=== PATIENT | male | born 1955 | race Caucasian/White ===

== ENCOUNTER 2023-11-02 05:32 | Emergency (ER) | payer OTHER, SELFPAY ==
[2023-11-02] VITALS (9 sets, daily range): BP systolic 125–162; BP diastolic 59–80; BMI 32.1
[2023-11-02] MEDS: DILAUDID 0.5 MG IV (06:30)
[2023-11-02 06:32] LABS: % Basophils 0.7 % (0-2); % Eosinophils 2.3 % (0-6); % Immature Granulocytes 0.4 % (0-0.5); % Lymphocytes 27.3 % (20.5-51.1); % Monocytes 8.6 % (1.7-9.3); % Neutrophils 60.7 % (42.2-75.2); Absolute Basophils 0.1 10^3/uL (0-0.2); Absolute Eosinophils 0.2 10^3/uL (0-0.7); Absolute Monocytes 0.6 10^3/uL (0.1-0.6); Absolute Neutrophils 4.5 10^3/uL (1.4-6.5); Hemoglobin 13.4 g/dL (13.0-18.0); Mean Corp Hgb Conc. 34.4 g/dL (33.0-37.0); Mean Corpuscular Hgb 29.6 pg (27.0-31.0); Mean Corpuscular Volume 86.1 fL (80.0-94.0); Mean Platelet Volume 10.7 fL (7.4-10.4); Nucleated Red Blood Cells % 0 % (-); Platelet Count 205 10^3/uL (130-400); Red Blood Cell Count 4.53 10^6/uL (4.70-6.10); Red Cell Dist. Width 14.3 % (11.5-14.5); White Blood Cell Count 7.5 10^3/uL (4.8-10.8)
[2023-11-02 06:43] LABS: ALT (SGPT) 22 U/L (0-50); AST (SGOT) 28 U/L (17-59); Albumin 3.9 g/dl (3.5-5.0); Alkaline Phosphatase 80 U/L (38-126); Blood Urea Nitrogen 20 mg/dl (9-20); Calcium 9.7 mg/dl (8.4-10.2); Carbon Dioxide 25 mmol/L (22-30); Chloride 104 mmol/L (98-107); Estimated Creatinine Clearance 107 ml/min; Glucose 107 mg/dl (70-99); Sodium 141 mmol/L (135-145); Total Bilirubin 0.7 mg/dl (0.2-1.3); Total Protein 6.6 g/dl (6.3-8.2); eGFR > 60.00
[2023-11-02 06:44] LABS: Urine Albumin Negative (Neg - Trace); Urine Bilirubin Negative (Negative); Urine Character Clear (Clear); Urine Color Yellow; Urine Glucose Negative (Negative); Urine Ketone Negative (Negative); Urine Leukocyte Negative (Negative); Urine Nitrite Negative (Negative); Urine Occult Blood Negative (Negative); Urine Urobilinogen Negative (Neg - 1+)
--- NOTE | 2023-11-02 07:17 | ED.GENMED ---
History of Present Illness
General
Chief Complaint: Abdominal Pain
Source: patient and spouse
Time Seen by Provider: 11/02/23 06:33
Travel History
Have you had any contact with someone who has COVID-19?: No
Do you have any symptoms of coronavirus? Fever > 100 degrees, chills, cough, shortness of breath, sore throat, loss of taste or smell, muscle aches, or headache?: No
History of Present Illness
History of Present Illness:
68-year-old male who presents with pain in the right groin area. Patient states that radiates a little bit toward his hip and back but mostly in the right groin. No fevers. No vomiting. No dysuria. No injury. Symptoms worsen this morning. He
did have mesh hernia repair in that same area.
Past History
Past History
ED Past Medical History: CVA, GERD and Other (Cervical disc disease, blind right eye, Parkinson's disease)
ED Past Surgical History: Orthopedic; Negative Cardiac
Social History
Tobacco: Non-smoker
Alcohol: Occasional
Drug: None
Personal:
Living: with family
Employment: Employed
Family History
Family History: Other (n/c)
Phy Exam
Physical Exam
Physical Exam:
CONSTITUTIONAL Patient alert and oriented to person, place and time. Well-appearing. Vital signs reviewed.
HEAD atraumatic, normocephalic.
EYES eyelids normal to inspection, Pupils equally round and reactive to light, Extraocular muscles intact, Conjunctiva normal, Sclera normal.
NECK normal range of motion, Trachea midline, no jugular venous distention.
RESPIRATORY CHEST No respiratory distress noted, Chest expansion equal
ABDOMEN moderate tenderness noted in the right groin above the inguinal ligament. Testicles normal. No rash. No bowel herniation. No distention. No redness
BACK normal inspection, no obvious deformities
UPPER EXTREMITY range of motion normal, Motor strength normal, no cyanosis, no edema.
LOWER EXTREMITY range of motion normal, Motor strength normal, no cyanosis, no edema.
NEURO Speech normal, No focal motor deficits, Lili coma scale 15, Memory normal, Cranial Nerves intact to screening exam.
SKIN skin warm, dry, and normal in color.
PSYCHIATRIC patient oriented to person place and time, Normal affect.
Course
Orders/Labs/Results
Orders:
Orders
11/02/23 06:10
IV Insert/Care/Rem.- Treatment PRN
11/02/23 06:12
Complete Blood Count/With Diff Urgent
Comprehensive Metabolic Panel Urgent
Lipase Urgent
Urinalysis Reflex To Culture Urgent
Date Specimen was Collected: 11/02/23
Time Specimen was Collected: 06:10
11/02/23 06:23
HYDROmorphone [Dilaudid] 0.5 mg IV NOW STA
11/02/23 07:16
CT Abd/pel Without Iv Or Oral Urgent
Comment:
Reason For Exam: R flank pain
11/02/23 08:04
HYDROmorphone [Dilaudid] 1 mg IV NOW STA
11/02/23 10:17
Ketorolac [Toradol] 15 mg IV NOW STA
Abnormal Lab Results
11/02/23
06:12
RBC 4.53 L 10^6/uL
(4.70-6.10)
MPV 10.7 H fL
(7.4-10.4)
Glucose 107 H mg/dl
(70-99)
11/02/23 06:12
11/02/23 06:12
Vital Signs
Initial and Last Documented VS:
Initial Vital Signs
Temp Pulse Resp BP Pulse Ox
98 F 64 24 162/80 98
11/02/23 05:33 11/02/23 05:33 11/02/23 05:33 11/02/23 05:33 11/02/23 05:33
Last Documented Vital Signs
Temp Pulse Resp BP Pulse Ox
98 F 51 16 127/70 98
11/02/23 05:33 11/02/23 12:00 11/02/23 12:00 11/02/23 12:00 11/02/23 05:33
MDM/Problems Addressed
MDM/Problems Addressed:
Groin pain
*Radiology
Radiology exam reviewed: preliminary read by ED provider (No free air noted) and radiology read reviewed
*Pulse Oximetry
Patient hypoxic: no
*Critical Care Note
Total Time (30-74mins, 75-104mins- exclusive of procedures): Not Applicable
Data Reviewed
Review of Other/Old Records Reveals: Discharge Summary (Discharge summary from August 2023 reviewed)
Source: patient and spouse
Prescriptions/Medications Considered But Not Given:
Considered antibiotics but no gross signs of infection. No leukocytosis
Patient Management
Escalation/DeEscalation of care consider admission/obs:
Pain does persist. However, white count normal, urinalysis normal, CT normal. On reexamination there is no bowel herniation noted. He otherwise appears well. I do feel it is reasonable for discharge outpatient follow-up with surgery. Question
whether this could be inflammatory related to his mesh.
ED Attending Note
-
Portions of this chart may have been created with voice recognition software.� Occasional wrong word or��sound alike� substitutions may have occurred due to the inherent limitations of voice recognition software.
Discharge Plan
Departure
Patient Disposition: Home (Routine Discharge)
Date of Disposition: 11/02/23
Time of Disposition: 12:42
Patient with high blood pressure during this ER visit?: No
Discharge Problem:
Groin pain
Instructions: Abdominal Pain
Prescriptions:
New
oxycodone-acetaminophen [Percocet] 5-325 mg tablet
2 tab PO Q6HPRN PRN (Reason: pain) Qty: 12 0RF
No Action
carvedilol [Coreg] 12.5 MG tablet
12.5 mg PO BID
pravastatin 40 MG tablet
40 mg PO DAILY
Patient Comments:
Patient stopped taking medication
therapeutic multivitamin Tablet
1 tab PO DAILY
aspirin 81 mg Tablet,Delayed Release (Dr/Ec)
81 mg PO BID
hydralazine 100 mg Tablet
100 mg PO TID
escitalopram oxalate 10 mg tablet
10 mg PO DAILY
bupropion HCl 150 mg tablet extended release 24 hr
150 mg PO DAILY
donepezil 5 mg tablet
5 mg PO HS
clonazepam 1 mg Tablet
1 mg PO HS
hydrochlorothiazide 25 mg tablet
25 mg PO HS
lisinopril 40 mg tablet
40 mg PO DAILY
amlodipine 10 mg Tablet
10 mg PO DAILY Qty: 30 0RF
Referrals:
Shaheen Jorgensen DO [Family Provider] -
Activity Restrictions/Additional Instructions:
Please see DR Hill or your doctor in the next 3 days for follow-up and reevaluation. Return immediately for worsening pain, vomiting, fevers, difficulty urinating or any other concerns.
Interventions
Interventions:
*Risk Screen - Suicide Last Done: 11/02/23 05:33
*General Assessment Last Done: 11/02/23 06:13
*Neglect/Abuse Screening Last Done: 11/02/23 05:33
ED- Fall Risk Assessment Last Done: 11/02/23 06:13
*ED COVID-19 Vaccine History Last Done: 11/02/23 06:12
QA-Vomapt-Omslypaukh Assessment Last Done: 11/02/23 06:47
ED-Male Genitourinary Assessment Last Done: 11/02/23 06:47
[2023-11-02 07:57] LABS: Lipase 108 U/L (23-300)
[2023-11-02] MEDS: DILAUDID 1 MG IV (08:20)
[2023-11-02] MEDS: TORADOL 15 MG IV (10:38)
== END 2023-11-02 14:37 | disposition home or self-care (01) ==
LOC: EMR 05:32
PROVIDERS: Emergency Medicine; EMERGENCY PHYSICIAN Emergency Medicine; FAMILY PHYSICIAN Internal Medicine
DX: R10.31 Right lower quadrant pain (principal); R10.9 Unspecified abdominal pain
CPT/HCPCS: 99284; 96374; 96375; 96376; 74176; 80053; 81003; 83690; 85025

== ENCOUNTER 2023-11-20 06:07 | Day surgery (SDC) | payer OTHER, SELFPAY ==
[2023-11-09 14:07] VITALS: BMI 33.8
[2023-11-20] VITALS (10 sets, daily range): BP systolic 125–140; BP diastolic 61–74; BMI 33.8
[2023-11-20] MEDS: TYLENOL 1000 MG PO (06:43)
[2023-11-20] MEDS: NORMOSOL-R 1000 IV (06:52)
--- NOTE | 2023-11-20 09:23 | OR.RPT ---
Operative Report
Operative Report
Primary Surgeon: Remi
Assisting Surgeon: Daria SEYMOUR
Pre-op Diagnosis: Recurrent incarcerated left inguinal hernia, incarcerated right inguinal hernia
Post-op Diagnosis: Same
Procedure Performed: Robot assisted laparoscopic repair of recurrent incarcerated left inguinal hernia, incarcerated right inguinal hernia
Anesthesia Type: GETA
Specimen / Cultures: None
Estimated Blood Loss: 5cc
Complications: None immediate
Operative Findings: Bilateral indirect defects, scarring in the canal on the right, large cord lipoma on the left, bilateral XL MID 3D max
Date of surgery: 11/20/23
Indications:� This 68M developed recurrent right inguinal hernia. On exam and imaging a left inguinal hernia was also identified. He asked that we repair both sides today. Robot assisted laparoscopic repair was planned.
Description of procedure:� The patient was taken to the operating room and positioned into supine position. The patient�s abdomen was prepped and draped in standard sterile fashion. A time-out was completed verifying correct patient, procedure,
site, positioning, and implants and special equipment prior to beginning this procedure.� A stab incision was made in the left upper quadrant, a Veress needle was inserted and proper position was confirmed by aspiration and saline drop test.
Following this, pneumoperitoneum was created with insufflation of carbon dioxide to 12 mmHg. Then a 8mm robotic trocar was inserted above and to the left of the umbilicus. A laparoscope was inserted and the area of initial trocar entry and Veress
needle placement were both inspected and no injuries were found. Two 8mm trocars were then placed lateral to the rectus sheath under direct visualization.
Both inguinal regions were inspected and the median umbilical ligament, medial umbilical ligament, and lateral umbilical fold were identified. Attention was turned to the right groin. The peritoneum was incised transversely above the defect and a
flap was developed in the caudad direction. Scar�s ligament was identified ultimately dissected to its junction with the iliac vein and the space of Retzius was developed bluntly.� The dissection was continued inferiorly to the iliopubic tract,
with care taken to avoid injury to the femoral branch of the genitofemoral nerve and the lateral femoral cutaneous nerve. The cord structures were parietalized.
The direct space was inspected and a hernia was not identified. The femoral space was inspected and no hernia was identified.� The indirect space was inspected and a hernia was identified and reduced by gentle traction. The canal was densely scarred
and was unable to be safely thoroughly inspected without risking injury to cord structures.
Attention was turned to the left groin and the above process was repeated. An indirect defect was reduced along with a large cord lipoma.
Extra large left and right MID 3D max mesh was passed through a trocar. The mesh was placed into the preperitoneal space and moved into position to lay flat and completely cover the direct, indirect, and femoral spaces with overlap at the midline.
The mesh was secured into place using 2-0 vicryl suture to Scar�s ligament medially and laterally. Care was taken to avoid the inferolateral triangles containing the iliac vessels and genital nerves.
The peritoneal flap was closed over the mesh and secured with 2-0 monocryl stratafix suture in similar positions of safety. A large flap rent on the right was closed with 2-0 monocryl stratatfix. A 14g angiocath was used to decompress the
preperitoneal space revealing good seal and all mesh in good position without folding or curling. After ensuring adequate hemostasis, the trocars were removed and the pneumoperitoneum allowed to escape. The trocar incisions were closed at the skin
level using 4-0 monocryl and topical skin adhesive. All counts were correct and the patient tolerated the procedure well and was taken to the postanesthesia care unit in stable condition.
�
== END 2023-11-20 12:00 | disposition home or self-care (01) ==
LOC: SDS 06:07
PROVIDERS: ATTENDING PHYSICIAN Surgery; FAMILY PHYSICIAN Internal Medicine; OTHER PHYSICIAN Internal Medicine Cardiovascular Disease
DX: K40.31 Unilateral inguinal hernia, with obstruction, without gangrene, recurrent (principal); K40.30 Unilateral inguinal hernia, with obstruction, without gangrene, not specified as recurrent
CPT/HCPCS: 49651; 36415; 93005; C1781

== ENCOUNTER 2023-12-07 21:55 | Emergency (ER) | payer OTHER, SELFPAY ==
[2023-12-07 21:57] VITALS: BP 146/69
[2023-12-08] MEDS: NSS 500 IV (00:28)
[2023-12-08 00:36] VITALS: BMI 34.0
[2023-12-08 00:39] LABS: % Basophils 1.1 % (0-2); % Eosinophils 0.8 % (0-6); % Immature Granulocytes 1.1 % (0-0.5); % Lymphocytes 34.3 % (20.5-51.1); % Monocytes 16.2 % (1.7-9.3); % Neutrophils 46.5 % (42.2-75.2); Absolute Basophils 0.1 10^3/uL (0-0.2); Absolute Eosinophils 0.1 10^3/uL (0-0.7); Absolute Immature Granulocytes 0.1 10^3/uL (0-0.05); Absolute Lymphocytes 2.7 10^3/uL (1.2-3.4); Absolute Monocytes 1.3 10^3/uL (0.1-0.6); Absolute Neutrophils 3.7 10^3/uL (1.4-6.5); Hemoglobin 12.9 g/dL (13.0-18.0); Mean Corp Hgb Conc. 33.9 g/dL (33.0-37.0); Mean Corpuscular Hgb 29.5 pg (27.0-31.0); Mean Platelet Volume 10.3 fL (7.4-10.4); Nucleated Red Blood Cells % 0 % (-); Platelet Count 209 10^3/uL (130-400); Red Blood Cell Count 4.37 10^6/uL (4.70-6.10); Red Cell Dist. Width 14.5 % (11.5-14.5); White Blood Cell Count 7.9 10^3/uL (4.8-10.8)
[2023-12-08 00:59] LABS: ALT (SGPT) 17 U/L (0-50); AST (SGOT) 27 U/L (17-59); Albumin 4.1 g/dl (3.5-5.0); Alkaline Phosphatase 72 U/L (38-126); Blood Urea Nitrogen 28 mg/dl (9-20); Calcium 9.3 mg/dl (8.4-10.2); Carbon Dioxide 26 mmol/L (22-30); Chloride 103 mmol/L (98-107); Estimated Creatinine Clearance 75 ml/min; Glucose 108 mg/dl (70-99); Potassium 3.6 mmol/L (3.5-5.1); Sodium 137 mmol/L (135-145); Total Bilirubin 0.6 mg/dl (0.2-1.3); Total Protein 6.9 g/dl (6.3-8.2); eGFR > 60.00
--- NOTE | 2023-12-08 01:05 | ED.GENMED ---
History of Present Illness
General
Chief Complaint: Cold/Flu/URI Symptoms
Time Seen by Provider: 12/08/23 00:06
Travel History
Have you had any contact with someone who has COVID-19?: Yes
Comment: DAMIÁN
Do you have any symptoms of coronavirus? Fever > 100 degrees, chills, cough, shortness of breath, sore throat, loss of taste or smell, muscle aches, or headache?: Yes
Symptoms:: ABOVE
History of Present Illness
History of Present Illness:
Cough congestion started 2 days ago. COVID-positive today. Some shortness of breath with exertion. No pleuritic pain no hemoptysis no other complaints.
Past History
Past History
ED Past Medical History: CVA, GERD and Other (Cervical disc disease, blind right eye, Parkinson's disease)
ED Past Surgical History: Orthopedic; Negative Cardiac
Social History
Tobacco: Non-smoker
Alcohol: Occasional
Drug: None
Personal:
Living: with family
Employment: Employed
Family History
Family History: Other (n/c)
Phy Exam
Physical Exam
Physical Exam:
GENERAL: Alert and oriented in no apparent distress
EYE: Orbits normal.
NECK: Supple
CARDIAC: Regular rate and rhythm without any obvious murmurs.
LUNGS: No respiratory distress. Occasional rhonchi. Occasional coarse cough
ABDOMEN: Soft, without focal tenderness or distention
NEUROLOGICAL: Alert and oriented , grossly non-focal. Resting tremor right arm
SKIN: Warm and dry, no rash or lesion, no discoloration, skin intact.
MUSCULOSKELETAL: No edema,no deformity.Good color
PSYCH: Normal and appropriate interaction.
Course
Orders/Labs/Results
Orders:
Orders
12/08/23 00:14
CR Chest Portable - 1 View Urgent
Comment:
Reason For Exam: cough covid pos
Reason Study Needs to be Portable: Other
If Reason is Other, explain: isolation
12/08/23 00:15
EKG [Electrocardiogram (*1)] Urgent
Reason for Study: Palpitations
EKG- Treatment ONCE
12/08/23 00:28
Complete Blood Count/With Diff Urgent
Comprehensive Metabolic Panel Urgent
D-Dimer Urgent
12/08/23 01:00
0.9% Sodium Chloride 500 ml [Nss] 500 ml IV 250 mls/hr
12/08/23 01:22
Nirmatrelvir/Ritonavir [Paxlovid 2X150 mg-100 mg Dose Pack] 1 dose PO NOW STA
Abnormal Lab Results
12/08/23
00:28
RBC 4.37 L 10^6/uL
(4.70-6.10)
Hgb 12.9 L g/dL
(13.0-18.0)
Hct 38.0 L %
(39.0-52.0)
Abs Immat Gran (auto) 0.1 H 10^3/uL
(0-0.05)
Absolute Monos (auto) 1.3 H 10^3/uL
(0.1-0.6)
Immature Gran % 1.1 H %
(0-0.5)
Monocytes % 16.2 H %
(1.7-9.3)
D-Dimer 0.60 H ug/mlFEU
(0.00-0.50)
BUN 28 H mg/dl
(9-20)
Glucose 108 H mg/dl
(70-99)
12/08/23 00:28
12/08/23 00:28
Vital Signs
Initial and Last Documented VS:
Initial Vital Signs
Temp Pulse Resp BP Pulse Ox
98.3 F 72 24 146/69 97
12/07/23 21:57 12/07/23 21:57 12/07/23 21:57 12/07/23 21:57 12/07/23 21:57
Last Documented Vital Signs
Temp Pulse Resp BP Pulse Ox
98.3 F 72 24 146/69 97
12/07/23 21:57 12/07/23 21:57 12/07/23 21:57 12/07/23 21:57 12/08/23 00:20
*Radiology
Radiology exam reviewed: preliminary read by ED provider (neg)
*Pulse Oximetry
Patient hypoxic: no
*EKG
Interpreted by ED Provider?: Yes
Interpretation: normal
Comparison EKG: no changes
Heart Rate: 64
Rate: normal
Rhythm: sinus
Arthur: normal axis
Interval: normal interval
QRS Pattern: normal QRS
Ischemia: no ischemia
*Critical Care Note
Total Time (30-74mins, 75-104mins- exclusive of procedures): Not Applicable
Update Note
Update Note:
Pharmacy reviewed his medications with Paxlovid. They recommend holding no tolterodine while on it and decreasing his amlodipine by 50%. All other meds okay. Reviewed plus minus with patient. He will start Paxlovid. Medically stable. Pulse ox
normal. D-dimer 0.6 which age-adjusted is normal with a low risk patient. Stable for discharge to follow-up
ED Attending Note
-
Portions of this chart may have been created with voice recognition software.� Occasional wrong word or��sound alike� substitutions may have occurred due to the inherent limitations of voice recognition software.
Discharge Plan
Departure
Patient Disposition: Home (Routine Discharge)
Date of Disposition: 12/08/23
Time of Disposition: :24
Patient with high blood pressure during this ER visit?: Yes
Discharge Problem:
COVID-19
Instructions: COVID-19 (DC), BLOOD PRESSURE
Prescriptions:
New
albuterol sulfate [ProAir HFA] 90 mcg/actuation HFA aerosol inhaler
2 puff inhalation Q4HPRN PRN (Reason: shortness of breath) Qty: 8.5 0RF
Paxlovid 300 mg (150 mg x 2)-100 mg tablets,dose pack
See Rx Instructions .ROUTE .COMPLEX Qty: 30 0RF
Rx Instructions:
take TWO 150 mg tablets of nirmatrelvir with ONE 100 mg tablet of ritonavir twice daily for 5 days
No Action
carvedilol [Coreg] 12.5 MG tablet
12.5 mg PO BID
therapeutic multivitamin Tablet
1 tab PO DAILY
aspirin 81 mg Tablet,Delayed Release (Dr/Ec)
81 mg PO DAILY
hydralazine 100 mg Tablet
100 mg PO TID
donepezil 5 mg tablet
5 mg PO HS
clonazepam 1 mg Tablet
1 mg PO HS
hydrochlorothiazide 25 mg tablet
25 mg PO HS
lisinopril 40 mg tablet
40 mg PO DAILY
amlodipine 10 mg Tablet
10 mg PO DAILY Qty: 30 0RF
tolterodine 4 mg Capsule,Extended Release 24hr
4 mg PO DAILY
escitalopram oxalate 5 mg Tablet
5 mg PO DAILY
finasteride 4 mg tablet
1 tab PO DAILY
Metamucil
3 gum PO HS
Referrals:
Shaheen Jorgensen DO [Family Provider] - Follow up in 2-3 days
Activity Restrictions/Additional Instructions:
Do not take your tolterodine while on Paxlovid
Decrease your amlodipine by 50% to 5 mg daily while on Paxlovid
Interventions
Interventions:
*Risk Screen - Suicide Last Done: 12/07/23 21:57
*General Assessment Last Done: 12/08/23 00:46
*Neglect/Abuse Screening Last Done: 12/07/23 21:57
ED- Fall Risk Assessment Last Done: 12/08/23 00:20
*ED COVID-19 Vaccine History Last Done: 12/08/23 00:46
ED- Pulmonary Assessment Last Done: 12/08/23 00:20
[2023-12-08 01:55] VITALS: BP 123/55
[2023-12-08] MEDS: PAXLOVID 2X150 MG-100 MG DOSE PACK 1 DOSE PO (01:58)
== END 2023-12-08 02:05 | disposition home or self-care (01) ==
LOC: EMR 21:55
PROVIDERS: EMERGENCY PHYSICIAN Emergency Medicine; FAMILY PHYSICIAN Internal Medicine
DX: U07.1 COVID-19 (principal); K21.9 Gastro-esophageal reflux disease without esophagitis; G20.A1 Parkinson's disease without dyskinesia, without mention of fluctuations; Z86.73 Personal history of transient ischemic attack (TIA), and cerebral infarction without residual deficits
CPT/HCPCS: 99283; 71045; 80053; 85025; 85379; 93005

== ENCOUNTER 2023-12-29 06:37 | Outpatient (RCR) | payer OTHER, SELFPAY | END 2024-01-12 15:57 | disposition home or self-care (01) | LOC: RPT 06:37 | PROVIDERS: ATTENDING PHYSICIAN Psychiatry & Neurology Neurology; FAMILY PHYSICIAN Internal Medicine | DX: G60.9 Hereditary and idiopathic neuropathy, unspecified (principal); Z73.6 Limitation of activities due to disability | CPT/HCPCS: 97110; 97162 ==

== ENCOUNTER → 2024-03-08 06:48 | Outpatient (REF) | payer OTHER, SELFPAY | LOC: PAVMRI 06:48 | PROVIDERS: ATTENDING PHYSICIAN Nurse Practitioner; FAMILY PHYSICIAN Internal Medicine | DX: M54.16 Radiculopathy, lumbar region (principal) | CPT/HCPCS: 72148 ==

== ENCOUNTER 2024-03-09 11:37 | Emergency (ER) | payer OTHER, SELFPAY ==
[2024-03-09 11:42] VITALS: BP 156/77
--- NOTE | 2024-03-09 14:39 | ED.GENMED ---
History of Present Illness
General
Chief Complaint: Skin Surface Trauma
Source: patient
Exam Limitations: none
Time Seen by Provider: 03/09/24 12:35
History of Present Illness
History of Present Illness:
68-year-old male presents for evaluation after trip [place]. He hit his nose and injured his left ribs while falling. He is not anticoagulated. No shortness of breath but does have pain with deep breathing.
Past History
Past History
ED Past Medical History: CVA, GERD and Other (Cervical disc disease, blind right eye, Parkinson's disease)
ED Past Surgical History: Orthopedic; Negative Cardiac
Social History
Tobacco: Non-smoker
Alcohol: Occasional
Drug: None
Personal:
Living: with family
Employment: Employed
Family History
Family History: Other (n/c)
Phy Exam
Physical Exam
Physical Exam:
General: Well-appearing male no acute respiratory distress
HEENT: Normocephalic swelling and contusion noted to the nose. He is tender over the bridge of the nose facial bones nontender pupils equal round reactive to light extract motion intact no raccoon eyes
Heart: Regular rate and rhythm no murmur
Lungs: Clear no wheeze or rales
Musculoskeletal exam: Cervical spine nontender. Slightly tender over the left lateral ribs. Bilateral knees with ecchymosis but nontender deformity are absent
Neurologic exam: Tremor noted however this is chronic
Course
Orders/Labs/Results
Orders:
Orders
03/09/24 12:59
CR Nasal Bones Comp Min 3 View Urgent
Comment:
Reason For Exam: fall
CR Ribs-left 3 Vw W/pa Chest Urgent
Comment:
Reason For Exam: fall, left lateral rib pain
Vital Signs
Initial and Last Documented VS:
Initial Vital Signs
Temp Pulse Resp BP Pulse Ox
98.8 F 70 16 156/77 98
03/09/24 11:42 03/09/24 11:42 03/09/24 11:42 03/09/24 11:42 03/09/24 11:42
Last Documented Vital Signs
Temp Pulse Resp BP Pulse Ox
98.8 F 70 16 156/77 98
03/09/24 11:42 03/09/24 11:42 03/09/24 11:42 03/09/24 11:42 03/09/24 11:42
MDM/Problems Addressed
Differential Diagnosis Includes:
Fall with nasal pain and rib pain. Consider nasal fracture versus contusion versus rib fracture versus contusion versus pneumothorax
Multiple areas of skin tears of the hands. Will dressed with antibacterial ointment and a gauze dressing
X-ray nasal bones and left ribs pending
*Critical Care Note
Total Time (30-74mins, 75-104mins- exclusive of procedures): Not Applicable
Update Note
Update Note:
X-rays nasal bones and ribs negative for acute obvious fractures or pneumothorax. Suspect contusion to the nose and chest wall. Stable for discharge.
ED Attending Note
-
Portions of this chart may have been created with voice recognition software.� Occasional wrong word or��sound alike� substitutions may have occurred due to the inherent limitations of voice recognition software.
Discharge Plan
Departure
Patient Disposition: Home (Routine Discharge)
Date of Disposition: 03/09/24
Time of Disposition: 14:53
Patient with high blood pressure during this ER visit?: No
Discharge Problem:
Contusion of nose, Chest wall contusion
Instructions: Wound Care (DC)
Prescriptions:
No Action
carvedilol [Coreg] 12.5 MG tablet
12.5 mg PO BID
therapeutic multivitamin Tablet
1 tab PO DAILY
aspirin 81 mg Tablet,Delayed Release (Dr/Ec)
81 mg PO DAILY
hydralazine 100 mg Tablet
100 mg PO TID
donepezil 5 mg tablet
5 mg PO HS
clonazepam 1 mg Tablet
1 mg PO HS
hydrochlorothiazide 25 mg tablet
25 mg PO HS
lisinopril 40 mg tablet
40 mg PO DAILY
amlodipine 10 mg Tablet
10 mg PO DAILY Qty: 30 0RF
tolterodine 4 mg Capsule,Extended Release 24hr
4 mg PO DAILY
escitalopram oxalate 5 mg Tablet
5 mg PO DAILY
finasteride 4 mg tablet
1 tab PO DAILY
Metamucil
3 gum PO HS
albuterol sulfate [ProAir HFA] 90 mcg/actuation HFA aerosol inhaler
2 puff inhalation Q4HPRN PRN (Reason: shortness of breath) Qty: 8.5 0RF
Paxlovid 300 mg (150 mg x 2)-100 mg tablets,dose pack
See Rx Instructions .ROUTE .COMPLEX Qty: 30 0RF
Rx Instructions:
take TWO 150 mg tablets of nirmatrelvir with ONE 100 mg tablet of ritonavir twice daily for 5 days
Referrals:
UNKNOWN - PT NOT,INTERVIEWE [Family Provider] -
Activity Restrictions/Additional Instructions:
Apply antibacterial and into the wounds. You may ice to the nose. Take Tylenol or ibuprofen for pain. Return if worse otherwise follow-up with family doctor
Interventions
Interventions:
*ED COVID-19 Vaccine History Last Done: 03/09/24 11:42
Discharge Date and Time
Print Language: [place]
[2024-03-09 15:05] VITALS: BP 132/72
== END 2024-03-09 15:06 | disposition home or self-care (01) ==
LOC: EMR 11:37
PROVIDERS: EMERGENCY PHYSICIAN Emergency Medicine
DX: S00.33XA Contusion of nose, initial encounter (principal); S20.219A Contusion of unspecified front wall of thorax, initial encounter; W01.0XXA Fall on same level from slipping, tripping and stumbling without subsequent striking against object, initial encounter
CPT/HCPCS: 99283; 70160; 71101

== ENCOUNTER → 2024-03-25 11:06 | Outpatient (REF) | payer OTHER, SELFPAY | LOC: RCS 11:06 | PROVIDERS: ATTENDING PHYSICIAN Internal Medicine Cardiovascular Disease; FAMILY PHYSICIAN Internal Medicine | DX: I35.1 Nonrheumatic aortic (valve) insufficiency (principal) | CPT/HCPCS: 93306 ==

== ENCOUNTER 2024-09-18 12:40 | Emergency (ER) | payer OTHER, SELFPAY ==
[2024-09-18 12:42] VITALS: BP 160/77
--- NOTE | 2024-09-18 14:15 | ED.GENMED ---
History of Present Illness
<Jey Weber Jr., PA-C - Last Filed: 09/19/24 11:25>
General
Chief Complaint: Change in Mental Status
Source: patient
Exam Limitations: none
Time Seen by Provider: 09/18/24 13:06
Nursing documentation reviewed up to this point in time: agreed with
History of Present Illness
History of Present Illness:
69-year-old male presenting to the emergency department today with concerns of change in mental status according to the family. He apparently has been having some significant confabulation while at home trouble with memory, fleeting ideas of
harming himself with a gun. The family claims that there is no gun in the house and he has not done anything specific to try to harm himself. Here he denies any thoughts of harming himself or others when questioned directly. He denies any
specific symptoms other than back achiness that he claims is from his uncomfortable bed at home.
Past History
<Jey Weber Jr., PA-C - Last Filed: 09/19/24 11:25>
Past History
ED Past Medical History: CVA, GERD and Other (Cervical disc disease, blind right eye, Parkinson's disease)
ED Past Surgical History: Orthopedic; Negative Cardiac
Social History
Tobacco: Non-smoker
Alcohol: Occasional
Drug: None
Personal:
Living: with family
Employment: Employed
Family History
Family History: Other (n/c)
Review of Systems
<IJEOMA Medrano Jr. Last Filed: 09/19/24 11:25>
Review of Systems
Allergies reviewed?: Yes
All Other Systems: ROS reviewed and negative except as documented in HPI and ROS
Phy Exam
<Jey Weber Jr., PA-C - Last Filed: 09/19/24 11:25>
Physical Exam
Physical Exam:
GENERAL: Alert , in no apparent distress
EYE: pupils equal and reactive
NECK: Supple, no significant adenopathy.
ENT: o/p clr, mmm.
CARDIAC: Regular rate and rhythm .
LUNGS: Clear breath sounds bilaterally, no acute respiratory distress, no wheezes/rales/rhonchi
ABDOMEN: Soft, without focal tenderness, no r/g, no cvat
NEUROLOGICAL: Alert oriented to person place and month but did get the year wrong and claims that it was 2005 no focal neuro deficits
SKIN: Warm and dry, skin intact.
MUSCULOSKELETAL: No edema, well perfused.
PSYCH: Normal and appropriate interaction.
Course
<Jey Weber Jr., IJEOMA - Last Filed: 09/19/24 11:25>
Orders/Labs/Results
Orders:
Orders
09/18/24 12:49
1:1 Observation - Suicide/ Violent Behavior As Directed
09/18/24 13:38
Electrocardiogram (*1) Stat
Reason for Study: Abdominal Pain
Crisis Consult Urgent
Reason for Consult: suicidal
EKG- Treatment ONCE
09/18/24 14:31
Complete Blood Count/With Diff Urgent
Comprehensive Metabolic Panel Urgent
TSH Reflex To Free T4 Urgent
Urinalysis Reflex To Culture Urgent
Date Specimen was Collected: 09/18/24
Time Specimen was Collected: 14:17
09/18/24 16:29
CT Head W/o Iv Contrast Urgent
Comment:
Reason For Exam: ams recent head injury
09/18/24 20:03
Acetaminophen [Tylenol] 650 mg PO NOW STA
Quetiapine Fumarate [Seroquel] 25 mg PO NOW STA
09/19/24 06:56
PSYCHIATRY CONSULT Urgent
Consulting Provider: Hakan Gillette
Was physician already notified: No
Reason for consult: 302-SI
09/19/24 06:57
Consult Notification Routine
Specialty to Notify: Psychiatry
Date consulting provider notified: 09/19/24
Time consulting provider notified: 08:10
Notified:: Provider
Comment: geetha
Abnormal Lab Results
09/18/24
14:31
RBC 4.22 L 10^6/uL
(4.70-6.10)
Hgb 12.3 L g/dL
(13.0-18.0)
Hct 37.5 L %
(39.0-52.0)
MCHC 32.8 L g/dL
(33.0-37.0)
RDW 14.6 H %
(11.5-14.5)
MPV 10.9 H fL
(7.4-10.4)
Carbon Dioxide 32 H mmol/L
(22-30)
09/18/24 14:31
09/18/24 14:31
Vital Signs
Initial and Last Documented VS:
Initial Vital Signs
Temp Pulse Resp BP Pulse Ox
98.1 F 62 16 160/77 98
09/18/24 12:42 09/18/24 12:42 09/18/24 12:42 09/18/24 12:42 09/18/24 12:42
Last Documented Vital Signs
Temp Pulse Resp BP Pulse Ox
98.1 F 62 20 154/82 94
09/19/24 07:34 09/19/24 07:34 09/19/24 07:34 09/19/24 07:34 09/19/24 07:34
<Sandra Pool DO - Last Filed: 09/19/24 07:05>
Orders/Labs/Results
Orders:
Orders
09/18/24 12:49
1:1 Observation - Suicide/ Violent Behavior As Directed
09/18/24 13:38
Electrocardiogram (*1) Stat
Reason for Study: Abdominal Pain
Crisis Consult Urgent
Reason for Consult: suicidal
EKG- Treatment ONCE
09/18/24 14:31
Complete Blood Count/With Diff Urgent
Comprehensive Metabolic Panel Urgent
TSH Reflex To Free T4 Urgent
Urinalysis Reflex To Culture Urgent
Date Specimen was Collected: 09/18/24
Time Specimen was Collected: 14:17
09/18/24 16:29
CT Head W/o Iv Contrast Urgent
Comment:
Reason For Exam: ams recent head injury
09/18/24 20:03
Acetaminophen [Tylenol] 650 mg PO NOW STA
Quetiapine Fumarate [Seroquel] 25 mg PO NOW STA
09/19/24 06:56
PSYCHIATRY CONSULT Urgent
Consulting Provider: Hakan Gillette
Was physician already notified: No
Reason for consult: 302-SI
09/19/24 06:57
Consult Notification Routine
Specialty to Notify: Psychiatry
Date consulting provider notified: 09/19/24
Time consulting provider notified: 08:10
Notified:: Provider
Comment: geetha
Abnormal Lab Results
09/18/24
14:31
RBC 4.22 L 10^6/uL
(4.70-6.10)
Hgb 12.3 L g/dL
(13.0-18.0)
Hct 37.5 L %
(39.0-52.0)
MCHC 32.8 L g/dL
(33.0-37.0)
RDW 14.6 H %
(11.5-14.5)
MPV 10.9 H fL
(7.4-10.4)
Carbon Dioxide 32 H mmol/L
(22-30)
09/18/24 14:31
09/18/24 14:31
Vital Signs
Initial and Last Documented VS:
Initial Vital Signs
Temp Pulse Resp BP Pulse Ox
98.1 F 62 16 160/77 98
09/18/24 12:42 09/18/24 12:42 09/18/24 12:42 09/18/24 12:42 09/18/24 12:42
Last Documented Vital Signs
Temp Pulse Resp BP Pulse Ox
98.1 F 62 20 154/82 94
09/19/24 07:34 09/19/24 07:34 09/19/24 07:34 09/19/24 07:34 09/19/24 07:34
<Jey Weber Jr., PA-C - Last Filed: 09/19/24 11:25>
MDM/Problems Addressed
MDM/Problems Addressed:
69-year-old male presenting to the emergency department today with concerns of change in mental status and fleeting ideas of harming himself according to the family. The family claims that he mentioned using a gun to shoot himself. He denies any
thoughts of harming himself or others here. On arrival blood pressure elevated otherwise vital signs are normal. No focal neurologic deficits. Patient in good spirits.
Labs unremarkable CT scan showing chronic findings discussed with neurosurgery Dr. Adams who does not believe there is any emergent changes or emergent need for intervention in this regard. Patient was reassessed and went on a long rant about how
he wanted to kill himself with a gun or drive off a sebastian or to go hold the ground and jumping. He had a continuous tangential stream of suicidal ideation. Considering this the necessity for 302 was discussed with the family who did file a 302
which was initially denied but then reapplied by the daughter, upheld with plans for telepsych assessment.
<Jey Weber Jr., PA-C - Last Filed: 09/19/24 11:25>
*Critical Care Note
Total Time (30-74mins, 75-104mins- exclusive of procedures): Not Applicable
ED Attending Note
<Jey Weber Jr., PA-C - Last Filed: 09/19/24 11:25>
-
Portions of this chart may have been created with voice recognition software.� Occasional wrong word or��sound alike� substitutions may have occurred due to the inherent limitations of voice recognition software.
<Sandra Pool DO - Last Filed: 09/19/24 07:05>
ED Attending Note
Patient seen and examined by attending physician: Yes
I performed a history and physical exam of patient and discussed management with resident, I reviewed resident's note and agree with documented findings and plan of care.: Yes
ED Attending Note:
69-year-old gentleman with history of dementia, recent traumatic brain injury suffering subdural hematoma, discharged from loss rehab 2 to 3 weeks ago. Since discharge home he has had slow decline in functioning and frequent voicing that he wants
to kill himself.
There has been no recurrent falls.
He remains cooperative with staff.
CT of the head shows chronic appearing right subdural hematoma.
has filed a 302 involuntary commitment.
Patient has been evaluated by telepsychiatrist who recommends upholding 302.
Patient has been updated with psychiatrist recommendations, recommend he be hospitalized for his depressive symptoms.
He is currently agreeable with this plan and remains cooperative with myself and staff.
Discharge Plan
Departure
Patient Disposition: Psych Facility
Date of Disposition: 09/19/24
Time of Disposition: 00:30
Discharge Problem:
major depression with suicidal thoughts, Hx of traumatic brain injury
Prescriptions:
No Action
clonazepam 1 mg Tablet
2 mg PO HS
lisinopril 40 mg tablet
40 mg PO DAILY
multivitamin Tablet
1 tab PO DAILY
quetiapine [Seroquel] 25 mg Tablet
25 mg PO DAILY
acetaminophen [Tylenol] 325 mg Tablet
650 mg PO TID
lidocaine 4 % Adhesive Patch,Medicated
1 patch TOPICAL DAILY PRN (Reason: arthritis pain)
donepezil 10 mg Tablet
10 mg PO HS
doxazosin 4 mg Tablet
4 mg PO HS
escitalopram oxalate 20 mg Tablet
20 mg PO DAILY
Fiber Gummies 5mg
15 mg PO HS
Referrals:
Shaheen Jorgensen DO [Family Provider] -
Interventions
Interventions:
*Risk Screen - Suicide Last Done: 09/18/24 12:47
*General Assessment Last Done: 09/18/24 19:18
*Neglect/Abuse Screening Last Done: 09/18/24 19:18
ED- Fall Risk Assessment Last Done: 09/18/24 18:54
*ED COVID-19 Vaccine History Last Done: 09/18/24 19:18
ED- Pulmonary Assessment Last Done: 09/18/24 19:38
ED- Neurological Assessment Last Done: 09/18/24 19:38
ED- Cardiac Assessment Last Done: 09/18/24 19:38
Discharge Date and Time
Print Language: WELSH
[2024-09-18 14:47] LABS: % Basophils 0.8 % (0-2); % Eosinophils 1.3 % (0-6); % Immature Granulocytes 0.5 % (0-0.5); % Lymphocytes 34.9 % (20.5-51.1); % Monocytes 7.8 % (1.7-9.3); % Neutrophils 54.7 % (42.2-75.2); Absolute Basophils 0.1 10^3/uL (0-0.2); Absolute Eosinophils 0.1 10^3/uL (0-0.7); Absolute Lymphocytes 2.2 10^3/uL (1.2-3.4); Absolute Monocytes 0.5 10^3/uL (0.1-0.6); Absolute Neutrophils 3.5 10^3/uL (1.4-6.5); Hematocrit 37.5 % (39.0-52.0); Hemoglobin 12.3 g/dL (13.0-18.0); Mean Corp Hgb Conc. 32.8 g/dL (33.0-37.0); Mean Corpuscular Hgb 29.1 pg (27.0-31.0); Mean Corpuscular Volume 88.9 fL (80.0-94.0); Mean Platelet Volume 10.9 fL (7.4-10.4); Nucleated Red Blood Cells % 0.6 % (-); Platelet Count 174 10^3/uL (130-400); Red Blood Cell Count 4.22 10^6/uL (4.70-6.10); Red Cell Dist. Width 14.6 % (11.5-14.5); White Blood Cell Count 6.3 10^3/uL (4.8-10.8)
[2024-09-18 15:00] LABS: ALT (SGPT) 13 U/L (0-50); AST (SGOT) 19 U/L (17-59); Albumin 3.8 g/dl (3.5-5.0); Alkaline Phosphatase 61 U/L (38-126); Blood Urea Nitrogen 17 mg/dl (9-20); Calcium 9.1 mg/dl (8.4-10.2); Carbon Dioxide 32 mmol/L (22-30); Chloride 103 mmol/L (98-107); Glucose 92 mg/dl (70-99); Potassium 3.9 mmol/L (3.5-5.1); Sodium 142 mmol/L (135-145); Total Bilirubin 0.3 mg/dl (0.2-1.3); Total Protein 6.3 g/dl (6.3-8.2); eGFR > 60.00
[2024-09-18 15:10] VITALS: BP 161/74
[2024-09-18 15:14] LABS: Urine Albumin Negative (Neg - Trace); Urine Bilirubin Negative (Negative); Urine Character Clear (Clear); Urine Color Yellow; Urine Glucose Negative (Negative); Urine Ketone Negative (Negative); Urine Leukocyte Negative (Negative); Urine Nitrite Negative (Negative); Urine Occult Blood Negative (Negative); Urine Specific Gravity 1.015 (<1.030); Urine Urobilinogen Negative (Neg - 1+); Urine pH 6.5 (5.0-9.0)
[2024-09-18 15:30] LABS: TSH Reflex To Free T4 1.06 uIU/ml (0.47-4.68)
[2024-09-18 19:38] VITALS: BP 164/64
[2024-09-18] MEDS: TYLENOL 650 MG PO (20:09)
[2024-09-18] MEDS: SEROQUEL 25 MG PO (20:09)
--- NOTE | 2024-09-18 20:41 | EDRN ---
's 302 was not upheld and she reports no one spoke with him (telepsych). says pt has made multiple suicidal threats, driving a car off the sebastian, getting a gun (gun was removed from house). Pt's daughter is currently filing 302 and if
that does not work, Dioni SHAW will file.
[2024-09-19 07:34] VITALS: BP 154/82
--- NOTE | 2024-09-19 14:26 | W.PN.UPDATE ---
Update Note
Progress Note Update
Pt seen, reviewed 302 and tele-psych eval. Pt on 302 for alleged suicidal threats/statements, in setting of TBI. Pt had reported brain injury in a fall, was in hospital and rehab from Apr to Aug 2024. reportedly having trouble managing pt's
behavior and affect at home. Pt has home health/visiting nursing services. Pt seen resting in bed, alert, partially oriented, initially thought I was another provider who did surgery. Pt states he was 'kidding' regarding any suicidal statements,
denies SI. Pt states he is in 'pretty good shape' mentally, is glad to be home from his lengthy hospital/rehab stay. Pt states he has therapy every day, gets upset at times. Pt calm, cooperative, has resting hand/arm tremor bilat. No agitation,
no signs of psychosis.
Imp: Unspecified depression, likely related to TBI, as well as situational. Pt on 302, is petitioner and reportedly having difficulty managing pt at home
Rec: continue observation/assessment on 302, with inpatient placement effort (denied by facilities thus far)
continue existing medications (Lexapro, Aricept, Klonopin) with doses adjusted. will follow
[2024-09-19 14:30] LABS: Amphetamines Negative (Negative); Barbiturates Negative (Negative); Benzodiazepines Negative (Negative); Buprenorphine Negative (Negative); Cocaine Negative (Negative); Marijuana Negative (Negative); Methadone Negative (Negative); Methamphetamines Negative (Negative); Opiates Negative (Negative); Phencyclidine Negative (Negative); Tricyclic Antidepressants Negative (Negative)
[2024-09-19 15:38] LABS: COVID-19 Antigen Negative (Negative)
[2024-09-19 19:42] VITALS: BP 113/92
== END 2024-09-19 20:40 ==
LOC: EMR 12:40
PROVIDERS: Physician Assistant; CONSULT PHYSICIAN Psychiatry & Neurology Psychiatry; EMERGENCY PHYSICIAN Emergency Medicine; FAMILY PHYSICIAN Internal Medicine
DX: F32.9 Major depressive disorder, single episode, unspecified (principal); R45.851 Suicidal ideations; Z87.820 Personal history of traumatic brain injury; Z11.52 Encounter for screening for COVID-19; F02.83 Dementia in other diseases classified elsewhere, unspecified severity, with mood disturbance
CPT/HCPCS: 99285; 70450; 71046; 80053; 80306; 81003; 84443; 85025; 87811; 93005

== ENCOUNTER 2024-10-04 23:51 | Emergency (ER) | payer OTHER, SELFPAY ==
[2024-10-04 23:52] VITALS: BP 153/91
[2024-10-05] VITALS: BP 153/91
--- NOTE | 2024-10-05 00:11 | ED.GENMED ---
History of Present Illness
General
Chief Complaint: Chest Pain
Source: patient
Exam Limitations: none
Time Seen by Provider: 10/05/24 00:04
History of Present Illness
History of Present Illness:
See MDM
Past History
Past History
ED Past Medical History: CVA, GERD and Other (Cervical disc disease, blind right eye, Parkinson's disease)
ED Past Surgical History: Orthopedic; Negative Cardiac
Social History
Tobacco: Non-smoker
Alcohol: Occasional
Drug: None
Personal:
Living: with family
Employment: Employed
Family History
Family History: Other (n/c)
Phy Exam
Physical Exam
Physical Exam:
See MDM
Scores
Heart Score for Chest Pain Patients
STEMI patient?: No
History: Slightly or Non-Suspicious
ECG: Normal
Age: >/= 65 years
Risk Factors: 1 or 2 Risk Factors
Troponin: </= Normal Limit
Heart Score for Chest Pain Patients: 3
Heart Score Risk: 2.5% MACE over next 6 weeks
Course
Orders/Labs/Results
Orders:
Orders
10/05/24 00:06
EKG [Electrocardiogram (*1)] Urgent
Reason for Study: Chest Pain
EKG- Treatment ONCE
10/05/24 00:10
CR Chest - 2 Views Urgent
Comment:
Reason For Exam: chest pain
10/05/24 00:14
Complete Blood Count/With Diff Urgent
Comprehensive Metabolic Panel Urgent
Troponin I Urgent
10/05/24 01:40
Troponin I Urgent
10/05/24 02:23
Mag Hydrox/Al Hydrox/Simeth [Maalox] 30 ml .ROUTE .STK-MED ONE
Abnormal Lab Results
10/05/24
00:14
RBC 4.41 L 10^6/uL
(4.70-6.10)
MPV 11.0 H fL
(7.4-10.4)
Abs Immat Gran (auto) 0.1 H 10^3/uL
(0-0.05)
Immature Gran % 1.2 H %
(0-0.5)
10/05/24 00:14
10/05/24 00:14
Vital Signs
Initial and Last Documented VS:
Initial Vital Signs
Temp Pulse Resp BP Pulse Ox
99.0 F 58 13 153/91 98
10/04/24 23:52 10/04/24 23:52 10/04/24 23:52 10/04/24 23:52 10/04/24 23:52
Last Documented Vital Signs
Temp Pulse Resp BP Pulse Ox
99.0 F 53 17 167/78 97
10/04/24 23:52 10/05/24 00:51 10/05/24 00:45 10/05/24 00:51 10/05/24 00:51
MDM/Problems Addressed
Differential Diagnosis Includes:
HPI and MDM Narrative:
69-year-old male presenting for evaluation of intermittent chest pain. This occurred just an hour or 2 ago. It started when he stood up from his recliner. Patient developed chest pain and he helped himself to the ground. Since then, the pain has
been intermittent at rest. On arrival, patient denies any symptoms. Given his history and the onset of pain, will obtain 2 troponin rule out
Physical exam
General: Well appearing and non-toxic
HEENT: protecting airway
Neck: appears supple
CV: No evidence of cyanosis. Regular rate and rhythm
Resp: No accessory muscle use. Lungs clear
Abd: Non-distended
Extremities: No deformities. No leg edema or tenderness
Neuro: alert
Psych: Normal affect
Skin: Intact
Problems Addressed including Acute and Chronic Conditions affecting care:
1. Intermittent chest pain
Acuity: acute
Prognosis: stable
Details: Will obtain 2 troponin rule out and chest x-ray
Updates
Patient given GI cocktail which seemed to help somewhat. Troponin negative x 2. Patient feels comfortable going. Will place on cardiac callback tracker
Differential Diagnosis (but not limited to): Noncardiac chest pain, ACS, unstable angina
Testing considered: D-dimer but he is neither tachycardic nor hypoxic and has no clinical signs of DVT
Drug therapy (if applicable): OTC meds, please see d/c instruction regarding Rx drugs
Amount and/or Complexity of Data Reviewed
Clinical info obtained from: Patient
External data reviewed: N/A
Labs I independently reviewed (but not limited to): Troponin normal
Radiology: X-ray independently reviewed: Chest x-ray clear
Pulse Ox: not hypoxic
EKG independently reviewed: Sinus rhythm, normal axis, no STEMI
Section Hand: Sinus rhythm
Critical Care: N/A
Risk of Complication:
Social Determinants of health: Good social support
Discussed with other providers: N/A
Escalation of Care includes Admit/Obs: After being observed in the Emergency Department, pt stable for discharge.
Occasional wrong word or 'sound a like' substitutions may have occurred due to the inherent limitations of voice recognition software. Read the chart carefully and recognize, using context, where substitutions have occurred.
*Critical Care Note
Total Time (30-74mins, 75-104mins- exclusive of procedures): Not Applicable
ED Attending Note
-
Portions of this chart may have been created with voice recognition software.� Occasional wrong word or��sound alike� substitutions may have occurred due to the inherent limitations of voice recognition software.
Discharge Plan
Departure
Patient Disposition: Home (Routine Discharge)
Date of Disposition: 10/05/24
Time of Disposition: 02:36
Patient with high blood pressure during this ER visit?: Yes
Discharge Problem:
Chest pain
Instructions: Chest Pain CBC Follow Up, BLOOD PRESSURE
Prescriptions:
No Action
clonazepam 1 mg Tablet
2 mg PO HS
lisinopril 40 mg tablet
40 mg PO DAILY
multivitamin Tablet
1 tab PO DAILY
quetiapine [Seroquel] 25 mg Tablet
25 mg PO DAILY
acetaminophen [Tylenol] 325 mg Tablet
650 mg PO TID
lidocaine 4 % Adhesive Patch,Medicated
1 patch TOPICAL DAILY PRN (Reason: arthritis pain)
donepezil 10 mg Tablet
10 mg PO HS
doxazosin 4 mg Tablet
4 mg PO HS
escitalopram oxalate 20 mg Tablet
20 mg PO DAILY
Fiber Gummies 5mg
15 mg PO HS
Activity Restrictions/Additional Instructions:
Please return for any worsening symptoms.
You may return at any time if you have further concerns.
Please follow up with your doctor at the first available appointment, preferably this week.
You were placed on the cardiac callback tracker. Someone from their office should call you in the next few days. If you do not hear from them in the next few days, please give them a call.
Thank you for choosing [facility].
Interventions
Interventions:
*Risk Screen - Suicide Last Done: 10/04/24 23:52
*General Assessment Last Done: 10/04/24 23:52
*Neglect/Abuse Screening Last Done: 10/05/24 00:23
ED- Cardiac Assessment Last Done: 10/05/24 00:21
Discharge Date and Time
Print Language: SLOVAK
[2024-10-05 00:21] VITALS: BMI 28.6
--- NOTE | 2024-10-05 00:23 | EDRN ---
When pt. arrived to ED, pt.'s reports she is concerned 'because he says he doesn't want to live like this, he says that to me all the time at home and then he doesn't take his meds. He was seen here for suicidal ideation on the fifth of
September'. RN asked pt. suicide questions, reading verbatim, see worklist for full answers. aware of this.
[2024-10-05 00:40] LABS: ALT (SGPT) 26 U/L (0-50); AST (SGOT) 28 U/L (17-59); Albumin 3.8 g/dl (3.5-5.0); Alkaline Phosphatase 65 U/L (38-126); Blood Urea Nitrogen 16 mg/dl (9-20); Carbon Dioxide 30 mmol/L (22-30); Chloride 103 mmol/L (98-107); Estimated Creatinine Clearance 101 ml/min; Glucose 93 mg/dl (70-99); Sodium 139 mmol/L (135-145); Total Bilirubin 0.2 mg/dl (0.2-1.3); Total Protein 6.5 g/dl (6.3-8.2); eGFR > 60.00
[2024-10-05 00:41] LABS: % Basophils 1.2 % (0-2); % Eosinophils 1.8 % (0-6); % Immature Granulocytes 1.2 % (0-0.5); % Lymphocytes 41.2 % (20.5-51.1); % Monocytes 7.7 % (1.7-9.3); % Neutrophils 46.9 % (42.2-75.2); Absolute Basophils 0.1 10^3/uL (0-0.2); Absolute Eosinophils 0.1 10^3/uL (0-0.7); Absolute Immature Granulocytes 0.1 10^3/uL (0-0.05); Absolute Monocytes 0.6 10^3/uL (0.1-0.6); Absolute Neutrophils 3.4 10^3/uL (1.4-6.5); Hematocrit 39.2 % (39.0-52.0); Hemoglobin 13.1 g/dL (13.0-18.0); Mean Corp Hgb Conc. 33.4 g/dL (33.0-37.0); Mean Corpuscular Hgb 29.7 pg (27.0-31.0); Mean Corpuscular Volume 88.9 fL (80.0-94.0); Nucleated Red Blood Cells % 0 % (-); Platelet Count 209 10^3/uL (130-400); Red Blood Cell Count 4.41 10^6/uL (4.70-6.10); Red Cell Dist. Width 14.2 % (11.5-14.5); White Blood Cell Count 7.3 10^3/uL (4.8-10.8)
[2024-10-05 00:51] VITALS: BP 167/78
[2024-10-05 00:55] LABS: Troponin I < 0.012 ng/ml
[2024-10-05 01:00] VITALS: BP 148/98
[2024-10-05 02:00] VITALS: BP 160/77
--- NOTE | 2024-10-05 02:06 | DOWNTIME ---
There was a [employer] Client [employer] Technician Downtime on 10/05/2024 from 0100 to 10/05/2023 at 0205 . Downtime documentation of patient's care, including medication administrations, has been reconciled in the electronic record per guidelines. Refer to the
patient's paper chart under the miscellaneous tab to see printed paper medication records and downtime forms.
[2024-10-05 02:33] LABS: Troponin I < 0.012 ng/ml
== END 2024-10-05 03:07 | disposition home or self-care (01) ==
LOC: EMR 23:51
PROVIDERS: EMERGENCY PHYSICIAN Student in an Organized Health Care Education/Training Program; FAMILY PHYSICIAN Internal Medicine
DX: R07.89 Other chest pain (principal); R03.0 Elevated blood-pressure reading, without diagnosis of hypertension
CPT/HCPCS: 99285; 71046; 80053; 84484; 85025; 93005

== ENCOUNTER → 2024-10-11 12:10 | Outpatient (REF) | payer OTHER, SELFPAY | LOC: HWRCS 12:10 | PROVIDERS: ATTENDING PHYSICIAN Internal Medicine Cardiovascular Disease; FAMILY PHYSICIAN Internal Medicine | DX: I35.1 Nonrheumatic aortic (valve) insufficiency (principal); I10 Essential (primary) hypertension; R25.1 Tremor, unspecified; M48.9 Spondylopathy, unspecified; R29.818 Other symptoms and signs involving the nervous system; R26.2 Difficulty in walking, not elsewhere classified | CPT/HCPCS: 78452; 93017; A9500; J2785 ==

== ENCOUNTER 2024-12-05 17:43 | Emergency (ER) | payer OTHER, SELFPAY ==
[2024-12-05 17:49] VITALS: BP 119/86
--- NOTE | 2024-12-05 19:54 | ED.GENMED ---
History of Present Illness
General
Chief Complaint: Male Genito-Urinary Symptoms
Source: patient
Exam Limitations: none
Time Seen by Provider: 12/05/24 19:40
History of Present Illness
History of Present Illness:
See MDM
Past History
Past History
ED Past Medical History: CVA, GERD and Other (Cervical disc disease, blind right eye, Parkinson's disease)
ED Past Surgical History: Orthopedic; Negative Cardiac
Social History
Tobacco: Non-smoker
Alcohol: Occasional
Drug: None
Personal:
Living: with family
Employment: Employed
Family History
Family History: Other (n/c)
Phy Exam
Physical Exam
Physical Exam:
See MDM
Course
Orders/Labs/Results
Orders:
Orders
12/05/24 17:53
Scrotum US [US Scrotum] Urgent
Comment:
Reason For Exam: swelling and R testicular pain
12/05/24 19:52
Case Management Consult ONCE
Case Management Consult: VN/Home Care
Comment: requesting home health
12/05/24 20:30
Cephalexin Monohydrate [Keflex] 500 mg PO NOW STA
Clotrimazole [Lotrimin 1% Cream] See Dose Instructions TOPICAL ONCE ONE
Vital Signs
Initial and Last Documented VS:
Initial Vital Signs
Temp Pulse Resp BP Pulse Ox
98.6 F 72 20 119/86 95
12/05/24 17:49 12/05/24 17:49 12/05/24 17:49 12/05/24 17:49 12/05/24 17:49
Last Documented Vital Signs
Temp Pulse Resp BP Pulse Ox
98.6 F 72 20 119/86 95
12/05/24 17:49 12/05/24 17:49 12/05/24 17:49 12/05/24 17:49 12/05/24 17:49
MDM/Problems Addressed
Differential Diagnosis Includes:
HPI and MDM Narrative:
69-year-old male presenting for evaluation of scrotal pain. He noticed pain and redness over the past few hours. at bedside indicating that he was recently in and out of the hospital traumatic brain injury. Patient is extremely
well-appearing and nontoxic on exam. He has no tenderness on his scrotal exam. There is no crepitus. Will obtain screening blood sugar but they denied prior history of diabetes. Patient has evidence of tinea in his inguinal canal bilaterally
which does not appear new. However, was unaware this was going on. We discussed this is likely related to tinea. Will cover with antifungal cream and antibiotics. We discussed follow-up with urology. Scrotal ultrasound formed prior to my
evaluation. Report pending
Physical exam
General: Well appearing and non-toxic
HEENT: protecting airway
Neck: appears supple
CV: No evidence of cyanosis
Resp: No accessory muscle use
Abd: Non-distended
Extremities: No deformities
: Tinea noted to both inguinal canals and spreading to the scrotum itself. No clinical evidence of torsion. Previous to reflex intact. No scrotal tenderness
Neuro: alert
Psych: Normal affect
Skin: Intact
Problems Addressed including Acute and Chronic Conditions affecting care:
1. Scrotal pain
Acuity: acute
Prognosis: stable
Details: Likely in setting of tinea. Will cover with antifungals. Scrotal ultrasound
Updates
Ultrasound shows no evidence of torsion or orchitis. We discussed the incidental finding of hydrocele and discussed follow-up with urology. Patient started on antifungal cream and antibiotics and discussed return precautions
Differential Diagnosis (but not limited to): Tinea, cellulitis
Testing considered: Urinalysis but denies symptoms
Drug therapy (if applicable): OTC meds, please see d/c instruction regarding Rx drugs
Amount and/or Complexity of Data Reviewed
Clinical info obtained from: Patient and
External data reviewed: N/A
Labs I independently reviewed (but not limited to): Random blood sugar 92
Radiology: Ultrasound report reviewed
Pulse Ox: not hypoxic
EKG independently reviewed: N/A
Publicity Agent: N/A
Critical Care: N/A
Risk of Complication:
Social Determinants of health: Good social support
Discussed with other providers: N/A
Escalation of Care includes Admit/Obs: After being observed in the Emergency Department, pt stable for discharge.
Occasional wrong word or 'sound a like' substitutions may have occurred due to the inherent limitations of voice recognition software. Read the chart carefully and recognize, using context, where substitutions have occurred.
*Critical Care Note
Total Time (30-74mins, 75-104mins- exclusive of procedures): Not Applicable
ED Attending Note
-
Portions of this chart may have been created with voice recognition software.� Occasional wrong word or��sound alike� substitutions may have occurred due to the inherent limitations of voice recognition software.
Discharge Plan
Departure
Patient Disposition: Home (Routine Discharge)
Date of Disposition: 12/05/24
Time of Disposition: 20:30
Patient with high blood pressure during this ER visit?: No
Discharge Problem:
Tinea, Cellulitis
Instructions: Fungal Skin Rash ED
Prescriptions:
New
clotrimazole 1 % cream
1 applic topical BID 28 Days Qty: 45 0RF
cephalexin 500 mg tablet
500 mg PO BID 10 Days Qty: 20 0RF
No Action
clonazepam 1 mg Tablet
2 mg PO HS
lisinopril 40 mg tablet
40 mg PO DAILY
multivitamin Tablet
1 tab PO DAILY
quetiapine [Seroquel] 25 mg Tablet
25 mg PO DAILY
acetaminophen [Tylenol] 325 mg Tablet
650 mg PO TID
lidocaine 4 % Adhesive Patch,Medicated
1 patch TOPICAL DAILY PRN (Reason: arthritis pain)
donepezil 10 mg Tablet
10 mg PO HS
doxazosin 4 mg Tablet
4 mg PO HS
escitalopram oxalate 20 mg Tablet
20 mg PO DAILY
Fiber Gummies 5mg
15 mg PO HS
Activity Restrictions/Additional Instructions:
Watch for worsening signs of infection: fever over 100.5', increasing pain, red streaks around wound, swelling, or increasing drainage of pus. If any of these happen, return to ED promptly. Make sure that you take all your antibiotics as directed
and finish your prescription even if you feel better before the bottle is empty. Please continue to use the cream for at least 2 weeks after the redness resolves.
Please call the urologist tomorrow for first available appointment.
Interventions
Interventions:
*Risk Screen - Suicide Last Done: 12/05/24 17:49
*General Assessment Last Done: 12/05/24 17:49
Discharge Date and Time
Print Language: KAZAKH
[2024-12-05 19:56] LABS: Glucose - Point of Care 92 mg/dl (70-99)
[2024-12-05] MEDS: KEFLEX 500 MG PO (20:38)
[2024-12-05 20:45] VITALS: BP 168/76
[2024-12-05] MEDS: LOTRIMIN 1% CREAM 1 APPLIC TOPICAL (21:01)
--- NOTE | 2024-12-06 11:05 | CM ---
Received message from CM Director that patient was seen in ED last night and was requesting VN. CM spoke with the patient's spouse via telephone. Discussed area VNs. VN selected. Referral sent in [facility] Port and was accepted.
== END 2024-12-05 21:12 | disposition home or self-care (01) ==
LOC: EMR 17:43
PROVIDERS: EMERGENCY PHYSICIAN Student in an Organized Health Care Education/Training Program; FAMILY PHYSICIAN Internal Medicine
DX: N49.2 Inflammatory disorders of scrotum (principal); B35.9 Dermatophytosis, unspecified; N43.3 Hydrocele, unspecified; N50.89 Other specified disorders of the male genital organs; M50.90 Cervical disc disorder, unspecified, unspecified cervical region; K21.9 Gastro-esophageal reflux disease without esophagitis; G20.A1 Parkinson's disease without dyskinesia, without mention of fluctuations; H54.61 Unqualified visual loss, right eye, normal vision left eye; Z86.73 Personal history of transient ischemic attack (TIA), and cerebral infarction without residual deficits; Z88.8 Allergy status to other drugs, medicaments and biological substances
CPT/HCPCS: 99284; 76870; 82962; 93976

== ENCOUNTER 2024-12-13 17:09 | Inpatient (IN) | payer OTHER, SELFPAY ==
[2024-12-07 18:36] VITALS: BP 166/81
[2024-12-07 18:40] VITALS: BP 166/81
[2024-12-07 18:47] VITALS: BMI 31.1
[2024-12-07 19:00] VITALS: BP 167/86
[2024-12-07 19:08] LABS: % Basophils 0.9 % (0-2); % Eosinophils 2.1 % (0-6); % Immature Granulocytes 0.4 % (0-0.5); % Lymphocytes 36.4 % (20.5-51.1); % Monocytes 9.1 % (1.7-9.3); % Neutrophils 51.1 % (42.2-75.2); Absolute Basophils 0.1 10^3/uL (0-0.2); Absolute Eosinophils 0.1 10^3/uL (0-0.7); Absolute Lymphocytes 2.4 10^3/uL (1.2-3.4); Absolute Monocytes 0.6 10^3/uL (0.1-0.6); Absolute Neutrophils 3.4 10^3/uL (1.4-6.5); Hematocrit 37.6 % (39.0-52.0); Hemoglobin 13.1 g/dL (13.0-18.0); Mean Corp Hgb Conc. 34.8 g/dL (33.0-37.0); Mean Corpuscular Hgb 31.1 pg (27.0-31.0); Mean Corpuscular Volume 89.3 fL (80.0-94.0); Mean Platelet Volume 10.7 fL (7.4-10.4); Nucleated Red Blood Cells % 0 % (-); Platelet Count 180 10^3/uL (130-400); Red Blood Cell Count 4.21 10^6/uL (4.70-6.10); White Blood Cell Count 6.7 10^3/uL (4.8-10.8)
[2024-12-07 19:23] LABS: ALT (SGPT) 21 U/L (0-50); AST (SGOT) 37 U/L (17-59); Albumin 4.6 g/dl (3.5-5.0); Alkaline Phosphatase 66 U/L (38-126); Blood Urea Nitrogen 18 mg/dl (9-20); Calcium 9.3 mg/dl (8.4-10.2); Carbon Dioxide 28 mmol/L (22-30); Chloride 105 mmol/L (98-107); Estimated Creatinine Clearance 104 ml/min; Glucose 110 mg/dl (70-99); Potassium 4.2 mmol/L (3.5-5.1); Sodium 143 mmol/L (135-145); Total Bilirubin 0.6 mg/dl (0.2-1.3); Total Protein 7.4 g/dl (6.3-8.2); eGFR > 60.00
[2024-12-07 20:00] VITALS: BP 175/90
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
[2024-12-07 21:00] VITALS: BP 145/89
[2024-12-07 22:07] LABS: Urine Albumin 1+ (Neg - Trace); Urine Bilirubin Negative (Negative); Urine Character Clear (Clear); Urine Color Yellow; Urine Glucose Negative (Negative); Urine Ketone Negative (Negative); Urine Leukocyte Negative (Negative); Urine Nitrite Negative (Negative); Urine Occult Blood Negative (Negative); Urine Urobilinogen Negative (Neg - 1+)
[2024-12-07 22:23] LABS: Urine Amorphous Seen; Urine Bacteria Few (Negative); Urine Red Blood Cell 0-2 /HPF (0-2); Urine Squamous Cell 0-2 /LPF (Few)
[2024-12-07 23:00] VITALS: BP 165/96
--- NOTE | 2024-12-07 23:12 | HPS.HSE ---
Addendum entered and electronically signed by Logan Gaming DO 12/08/24 00:21:
Patient seen and examined independently. Agree with findings and plan as set forth by LATRICIA Silva.
Patient is a 69y M with PMH significant for prior TBI who presents to ED for evaluation of agitation / aggressive behavior. History obtained from patient and family at the bedside. Patient is confused / disoriented and believes that he is here
for having an argument with a 'customer'. Patient has been declining since his initial TBI in March 2024. He has intermittent episodes of increased agitation - occasionally becoming aggressive and violent with / family at home.
Patient was seen in the ED yesterday with complaints of scrotal discomfort and treated for local tinea / inflammation.
Ass:
Acute Agitation / Delirium
Senile Dementia with behavioral Disturbance
Traumatic Brain Injury (March 2024)
Benign Hypertension
Plan:
Observe overnight for further evaluation and treatment.
Continue current psychotropic medications.
Haldol PRN for acute agitation.
Psychiatry evaluation for med adjustments / recommendations.
CM eval for placement discussions / investigations.
Continue other usual medications.
Original Note:
Family Physician
-
Family Physician: Shaheen Jorgensen
Chief Complaint
-
change in mental status
History of Present Illness
Patient is a 69-year-old male with past medical history significant for traumatic brain injury, dementia, essential hypertension, hyperlipidemia, depression, tremor, sleep apnea and right eye blindness who presented to [facility] ED for
evaluation of change in mental status. Daughter at bedside who assists in HPI. Patient suffered TBI injury in March 2024 and has been declining ever since. She stated neurology has been following and recently has mentioned potential Lewy Body
Dementia but she does not believe it is an official diagnosis. She reports that patients short and longterm memory has been declining and most recently not recognizing his of daughter by site. He has also not been able to recognize that he is
home in his house. This is a home that has been in his life since childhood. Daughter states recently seen in ED yesterday for rash to groin area and was referred to see urology out patient. She denies any other recent illness, fever, chills,
nausea, vomiting, constipation, diarrhea or urinary symptoms.
Medical History
Past Medical History
Past Medical History: Reports Other
Additional Past Medical History:
traumatic brain injury
dementia
essential hypertension
hyperlipidemia
depression
tremor
Parkinson's
sleep apnea
right eye blindness
Past Surgical History: Reports Other
Additional Past Surgical History:
thumb Surgery
hernia 10/2021
Large Hernia Surgery 10/20/[address] Vizcarra 12/2022
Spinal epidural 01/29/2023
cystoscopy 02/2023
Cervical epidural 05/21/2023
Robot asst lap repair of recurrent incarcerated L inguinal hernia, incarcerated R inguinal hernia ([place]) 11/20/23
Fall resulting in nose fracture 03/14/2024
Social History
Tobacco: Non-smoker
Alcohol: None
Drug: None
Personal:
Living: With Family
Family History
Family History: Not pertinent
Allergies / Home Medications
Allergies reflects when Allergies were last updated in [facility].
Home Medications with original date entered in [facility]
Allergy/Medication List:
Allergies
Allergy/AdvReac Type Severity Reaction Status Date / Time
carbidopa [From Sinemet] Allergy Nausea / Verified 12/07/24 18:35
Vomiting
levodopa [From Sinemet] Allergy Nausea / Verified 12/07/24 18:35
Vomiting
memantine [From Namenda] Allergy diarrhea Verified 12/07/24 18:35
[id number]-[id number] Reductase Allergy muscle Verified 12/07/24 18:35
Inhibitor cramps
Home Medications
clonazepam 1 mg tablet 1 mg PO HS Mental Health/Anxiety 10/21/22
lisinopril 40 mg tablet 40 mg PO DAILY Blood Pressure 08/27/23
Fiber Gummies 5mg 15 mg PO HS 09/18/24
donepezil 10 mg tablet 10 mg PO HS 09/18/24
doxazosin 4 mg tablet 4 mg PO HS 09/18/24
escitalopram oxalate 20 mg tablet 20 mg PO DAILY 09/18/24
cephalexin 500 mg tablet 500 mg PO BID 10 days #20 tabs 12/05/24
clotrimazole 1 % topical cream 1 applic topical BID 4 weeks #45 grams 12/05/24
acetaminophen 500 mg tablet (Tylenol Extra Strength) 1,000 mg PO NOON 12/07/24
amlodipine 2.5 mg tablet 2.5 mg PO DAILY 12/07/24
divalproex 250 mg tablet,delayed release 500 mg PO BID 12/07/24
hydrocodone 5 mg-acetaminophen 325 mg tablet 1 tab PO BID 12/07/24
melatonin 5 mg tablet 15 mg PO HS 12/07/24
quetiapine 50 mg tablet 50 mg PO BID 12/07/24
therapeutic multivitamin 1 tab PO NOON 12/07/24
Review of Systems
-
Unable to obtain full review of systems at this time due to: Dementia
History Source: Family
Neurological: Reports Other (change in mental status, increasing memory loss, inability to recognize family, increasing agitation )
Physical Exam
Vital Signs
Vital Signs
Temp Pulse Resp BP Pulse Ox
98.3 F 60 17 165/96 95
12/07/24 18:36 12/07/24 23:06 12/07/24 23:00 12/07/24 23:00 12/07/24 23:00
Physical Exam
General: Well Developed, Well Nourished and Morbidly Obese
HEENT: NormoCephalic, Moist mucous membranes, Atraumatic, [place] Conjunctivae, Nose Appears Normal and Ears Appear Normal
Respiratory: Clear and Non Labored Respirations
Cardiac: S1/S2 and Regular Rhythm
Breast: Deferred by me
GI: Soft, Non Tender, Non Distended and Normal Bowel Sounds
Rectal: Deferred by Provider
Genito-urinary: Deferred by me
Musculoskeletal: No Clubbing, No Cyanosis, Edema, Left Lower Extremity (trace ) and Edema, Right Lower Extremity (trace)
Skin: Rash (groin ) and IV/Catheter Site
Neuro: Awake, Alert and Nonfocal/grossly intact
Psych: Other (restless )
Laboratory Results
-
12/07/24 18:49
12/07/24 18:49
Laboratory Results
Total Bilirubin 0.6 mg/dl (0.2-1.3) 12/07/24 18:49
AST 37 U/L (17-59) 12/07/24 18:49
ALT 21 U/L (0-50) 12/07/24 18:49
Alkaline Phosphatase 66 U/L (38-126) 12/07/24 18:49
Data Reviewed
-
CT Scan: Report Reviewed by me (Head: No acute intracranial abnormality noted.)
Lab Data: Labs Reviewed by me
Impression/Plan
-
IMPRESSION/PLAN:
#change in mental status
#traumatic brain injury
#dementia
Head CT: No acute intracranial abnormality noted.
- Admit to telemetry
- Consult case management
- Consult psychiatry
- PRN Haldol
- continue quetiapine, donepezil and divalproex
#essential hypertension
- continue amlodipine doxazosin and lisinopril
#depression
- continue escitalopram
#tremor
#hyperlipidemia
#sleep apnea
#right eye blindness
Code status: DNR
DVT prophylaxis: SCDs
[2024-12-08] VITALS (10 sets, daily range): BP systolic 152–183; BP diastolic 68–106; BMI 32.1
--- NOTE | 2024-12-08 00:51 | ED.GENMED ---
History of Present Illness
General
Chief Complaint: Change in Mental Status
Time Seen by Provider: 12/07/24 19:09
Past History
Past History
ED Past Medical History: CVA, GERD and Other (Cervical disc disease, blind right eye, Parkinson's disease, traumatic brain injury, dementia)
ED Past Surgical History: Orthopedic
Social History
Tobacco: Non-smoker
Alcohol: Occasional
Drug: None
Personal:
Living: with family
Employment: Employed
Family History
Family History: Other (n/c)
Course
Orders/Labs/Results
Orders:
Orders
12/07/24 18:49
CMP [Comprehensive Metabolic Panel] Urgent
Complete Blood Count/With Diff Urgent
12/07/24 19:24
CT Head W/o Iv Contrast Urgent
Comment:
Reason For Exam: change in ms, recent TBI
12/07/24 21:59
Urinalysis Reflex To Culture Urgent
Date Specimen was Collected: 12/07/24
Time Specimen was Collected: 21:48
Urine Microscopic Reflex Cult Urgent
12/07/24 23:37
Admit/Transfer Patient As Directed
Co-Sign Provider:
Level of Care: Observation services
Assign to:: Telemetry
Physician / Group: Mekhi
Diagnosis: Agitation / Delirium
Reason for Telemetry: Arrhythmia
Date to Stop Telemetry: 12/10/24
Time to Stop Telemetry: 11:00
PRN Pain Medication Management As Directed
May give lesser potent ordered pain med per pt: Yes
preference::
Protocol:: Medication orders for pain may be administered in a
manner that supports deferring to patient preference
when the pt is:
- Requesting an ordered lesser potent pain medication.
Least to most potent pain medications are defined
as: acetaminophen < NSAID < tramadol < opioids
(morphine, oxycodone, hydromorphone).
- Requesting a lesser dose of the same medication IF
ORDERED.
- Requesting a less intrusive route of administration
if both routes are prescribed by the provider (PO <
IV).
12/07/24 23:39
EKG [Electrocardiogram (*1)] Urgent
Reason for Study: QTc Monitoring
12/07/24 23:43
Code Status As Directed
Resuscitation Status: Do not resuscitate
Reached after discussion with pt or family/Healthcare POA: Yes
12/07/24 23:52
DNR Bracelet Application ONCE
12/10/24 11:00
DC Protocol for Telemetry ONCE
Abnormal Lab Results
12/07/24 12/07/24
18:49 21:59
RBC 4.21 L 10^6/uL
(4.70-6.10)
Hct 37.6 L %
(39.0-52.0)
MCH 31.1 H pg
(27.0-31.0)
RDW 15.0 H %
(11.5-14.5)
MPV 10.7 H fL
(7.4-10.4)
Glucose 110 H mg/dl
(70-99)
Urine Bacteria (Reflex) Few A
(Negative)
Urine Albumin (Reflex) 1+ A
(Neg - Trace)
12/07/24 18:49
12/07/24 18:49
Vital Signs
Initial and Last Documented VS:
Initial Vital Signs
Temp Pulse Resp BP Pulse Ox
98.3 F 96 20 166/81 95
12/07/24 18:36 12/07/24 18:36 12/07/24 18:36 12/07/24 18:36 12/07/24 18:36
Last Documented Vital Signs
Temp Pulse Resp BP Pulse Ox
98.3 F 60 23 168/84 94
12/07/24 18:36 12/07/24 23:06 12/08/24 00:45 12/08/24 00:00 12/08/24 00:45
ED Attending Note
-
Portions of this chart may have been created with voice recognition software.� Occasional wrong word or��sound alike� substitutions may have occurred due to the inherent limitations of voice recognition software.
Discharge Plan
Departure
Patient Disposition: Admit
Date of Disposition: 12/07/24
Time of Disposition: 23:07
Admit to: Med/Surg
Presentation/result/management discussed w/ accepting /: Hospitalist
Discharge Problem:
Acute alteration in mental status, Dementia with aggressive behavior
Prescriptions:
No Action
clonazepam 1 mg Tablet
1 mg PO HS
lisinopril 40 mg tablet
40 mg PO DAILY
donepezil 10 mg Tablet
10 mg PO HS
doxazosin 4 mg Tablet
4 mg PO HS
escitalopram oxalate 20 mg Tablet
20 mg PO DAILY
Fiber Gummies 5mg
15 mg PO HS
clotrimazole 1 % cream
1 applic topical BID 28 Days Qty: 45 0RF
cephalexin 500 mg tablet
500 mg PO BID 10 Days Qty: 20 0RF
divalproex 250 mg tablet,delayed release (DR/EC)
500 mg PO BID
hydrocodone-acetaminophen 5-325 mg Tablet
1 tab PO BID
Theragen Tablet
1 tab PO NOON
amlodipine 2.5 mg Tablet
2.5 mg PO DAILY
acetaminophen [Tylenol Extra Strength] 500 mg Tablet
1,000 mg PO NOON
quetiapine 50 mg Tablet
50 mg PO BID
melatonin 5 mg Tablet
15 mg PO HS
Referrals:
Shaheen Jorgensen DO [Family Provider] -
Interventions
Interventions:
*Risk Screen - Suicide Last Done: 12/07/24 18:42
*General Assessment Last Done: 12/07/24 18:42
*Neglect/Abuse Screening Last Done: 12/07/24 18:42
*ED- Fall Risk Assessment Last Done: 12/07/24 18:46
*ED COVID-19 Vaccine History Last Done: 12/07/24 18:42
ED- Pulmonary Assessment Last Done: 12/07/24 18:47
ED- Neurological Assessment Last Done: 12/07/24 18:46
ED- Cardiac Assessment Last Done: 12/07/24 18:48
Discharge Date and Time
Print Language: HUNGARIAN
[2024-12-08 03:38] LABS: TSH Reflex To Free T4 1.75 uIU/ml (0.47-4.68)
[2024-12-08 07:28] LABS: Blood Urea Nitrogen 15 mg/dl (9-20); Carbon Dioxide 31 mmol/L (22-30); Chloride 107 mmol/L (98-107); Estimated Creatinine Clearance 104 ml/min; Glucose 82 mg/dl (70-99); Potassium 4.1 mmol/L (3.5-5.1); Sodium 145 mmol/L (135-145); eGFR > 60.00
[2024-12-08 07:41] LABS: Hematocrit 40.5 % (39.0-52.0); Hemoglobin 13.6 g/dL (13.0-18.0); Mean Corp Hgb Conc. 33.6 g/dL (33.0-37.0); Mean Corpuscular Hgb 30.1 pg (27.0-31.0); Mean Corpuscular Volume 89.6 fL (80.0-94.0); Mean Platelet Volume 10.6 fL (7.4-10.4); Platelet Count 185 10^3/uL (130-400); Red Blood Cell Count 4.52 10^6/uL (4.70-6.10); Red Cell Dist. Width 14.8 % (11.5-14.5); White Blood Cell Count 7.3 10^3/uL (4.8-10.8)
[2024-12-08] MEDS: DEPAKOTE (12 HR RELEASE) 500 MG PO ×2 (08:44→20:43)
[2024-12-08] MEDS: SEROQUEL 50 MG PO ×3 (08:45→21:03)
[2024-12-08] MEDS: ZESTRIL 40 MG PO (08:45)
[2024-12-08] MEDS: NORVASC 2.5 MG PO (08:46)
[2024-12-08] MEDS: LEXAPRO 20 MG PO (08:46)
[2024-12-08] MEDS: HALDOL 1 MG IV (09:11)
--- NOTE | 2024-12-08 09:15 | PTCARENOTE ---
pt becoming increasingly agitated. 'i have to leave I have surgery.' informed pt no plans for surgery. pt yelling out. 1mg haldol admin per order. will monitor.
[2024-12-08] MEDS: LOTRIMIN 1% CREAM 1 APPLIC TOPICAL ×2 (09:28→20:52)
--- NOTE | 2024-12-08 10:05 | W.PN.HOSP.TC ---
Today's Communication/Plan
-
Psych input
Continue with home regimen
Monitor blood pressure
Case management assistance
Assessment / Plan
Assessment / Plan
#Acute Agitation / Delirium likely secondary to progression of dementia possibly Lewy body
#Senile Dementia with behavioral Disturbance
#Traumatic Brain Injury (March 2024)
Discussed with daughter over the phone in detail. Patient with intermittent episode of severe agitation and confusions.
Patient was agitated yesterday and [employer] SERVICE DISPATCHER were called in
CBC normal. CMP BMP normal. Afebrile. Doubt metabolic cause.
Continue with home medications and as needed Haldol
CT head without acute changes
Monitor for behavioral disturbances. Continue to reorient.
Continue with Seroquel, Aricept, Depakote, Lexapro
Will ask psych for input
Case management for assistance
Benign Hypertension
Continue with Norvasc and lisinopril
History of traumatic brain injury secondary to fall leading to brain hemorrhage
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
BPH
On Cardura
DVT prophylaxis
Discussed with patient daughter over the phone in details.
Anticipated Discharge: 24 - 48 hours
Subjective/Interval History
-
Date of Service: December 08, 2024
Patient currently resting in bed
Tremors in the right hand noted
States she is going for testing
Patient knew he was in [facility] and knew his name
Objective Data
-
Labs:
Laboratory Results
12/08/24
07:07
WBC 7.3
Hgb 13.6
Hct 40.5
Plt Count 185
Sodium 145
Potassium 4.1
Chloride 107
Carbon Dioxide 31 H
BUN 15
Creatinine 0.8
Glucose 82
Calcium 10.0
Vital Signs:
Vital Signs
Temp Pulse Resp BP Pulse Ox
98.8 F 65 20 152/68 93
12/08/24 07:36 12/08/24 07:00 12/08/24 07:00 12/08/24 07:00 12/08/24 06:45
Physical Exam
-
General: Well Developed, Well Nourished and No Apparent Distress
HEENT: Normocephalic, Atraumatic and Moist Mucous Membranes
Respiratory: Clear to Auscultation; Negative Wheezes, Rales or Rhonchi
Cardiac: Regular Rhythm and S1/S2
GI: Soft, Nontender and Nondistended
Musculoskeletal: No Clubbing, No Cyanosis and No Edema
Neuro: Awake, Alert, No Motor Deficits (appears to have resolved LUE weakness) and Tremors (rt sided tremor -chronic ); Negative Slurred Speech
Psych: Calm
Data Reviewed
-
Total Time Spent with Patient (in minutes): 55
[2024-12-08] MEDS: ZYPREXA 5 MG IM (11:19)
[2024-12-08] MEDS: STERILE WATER FOR INJECTION 2.1 ML IM (11:20)
--- NOTE | 2024-12-08 11:52 | PTCARENOTE ---
pt again becoming mildly aggressive. attempting to get out of at times. md aware. zyprexa im ordered and admin. will monitor.
--- NOTE | 2024-12-08 12:51 | CON.MD ---
Consultation - Medical
-
patient seen chart reviewed. discussed with nursing. patient unable to give a history given cognitive impairment. patient is a 69 year old male w hx dementia and tbi. he was brought to [facility] increasing agitation and aggression in the home . he was
noted to be very confused. did not recognize daughter and thought he was at home. he has been restless and irritable requiring prns since his arrival here. patient had been prescribed aricept 10 mg daily seroquel 50 mg bid depakote 500 mg bid
lexapro 20 mg daily klonopin one mg q hs . he has received haldol and zyprexa prn's since coming to the er. i spoke with patient's nani beaver who is his legal guardian. patient has parkinson's dx in 2019 that was when he started w dementia sx but
very mild. last march he fell no clear reason for the fall but he suffered tbi multiple brain bleeds skull fx. he was in icu for a while then to [facility] where he had extensive therapy. he came home after 3 to 4 months then was dc to
home. he arrived home before srinath. the first few days were tough and by the beginning of september he 'went off the rails'. he was threatening to mom and kids could not calm him. he was hosp at [facility] and returned home after one and one half weeks.
he was okay for a short time but in the past week or so he was much worse. he does not recognize his house which is his childhood home and was built by his own gf. this is very concerning to the family. the patient has expressed that he [place] (the do not have a mountain home). he keeps telling his 'we need to go home' and patient became more and more agitated leading to the aggression last night.
past psych hx patient dx with dementia see above. daughter had the idea already that aricept not helpful. she does feel that he is depressed and that is why lexapro was ordered although d does not know when. he has not been on other
antidepressants to d's knowledge
past medical hx see above patient w a number of medical morbidities including francesco statin intolerance ascvd bph htn essential tremor myalgias leg cramps right retinal detachment/blindness cva gerd cervical disc disease tbi REM behavioral
disorder. dr quick's note stated PD as well. d told me he was dx with PD. there was some confusion initially about whether he had PD. at times they have called him 'functional neurological disorder' and his neurologist now thinks he may have lewy
body dementia. current neurologist is dr stacy stevenson. he had a FREDDIE scan a long time ago and it did not show anything . the neurologist thinks it was done too soon and given his current condition it is felt impossible to get it done. there is a
note in this chart that he is allergic to sinemet etc. d unable to enlighten me here. noted cat scan w/o acute abn. ultrasound testes without torsion the patient does not have a sz d.o the depakote is for behavioral issues. qtc nl bradycardia
noted bp high 183/106
fh non contributory
social hx resides w . d's look in on him. the family got a waver for in home help but it did not start yet. patient has two daughters and a son by another but family has nothing to do w son. 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
substance abuse none
mse alert but oriented only to name. patient very impaired cognitively. insight judgment poor. restless.
dx dementia type??? possibly lewy body possible underlying depression hx tbi
recommendation given that patient has some variant of PD likely would avoid antipsychotics w eps as a significant ill effect eg haldol. have inc seroquel to 50 mg tid and 25 mg prn .recheck ecg. he was on a number of meds w qtc prolongation as a
side effect. have dc'ed donepezil. dc escitalopram and substitute zoloft which does not prolong qtc. (d feels strongly depression is a part of the px ) zoloft can be increased. dc haldol iv which can prolong qtc. if we need parenteral mode of
antipsychotic would use im zyprexa 2.5 mg check and optimize depakote level. explained these changes to d. neuro consult given PD. when i helped position patient in the bed he did seem to have some rigidity. monitor bp which is high . one to
one for now for patient safety as d tells me he while at [facility] he made it to the stairs before he was seen. patient may be unable to return home as per d unless significant improvement in behavior. psych will follow
--- NOTE | 2024-12-08 13:05 | PTCARENOTE ---
Received pt from ED via stretcher. AAOx1. Pt pulled over to bed with assist x4. Restless. Confused, forgetful, bed alarm placed and plugged in. threat monitoring analyst placed. Pt unable to verbalize understanding of call torre. Will continue to monitor.
--- NOTE | 2024-12-08 13:05 | PTCARENOTE ---
This RN, GN and 2 PCT's repositioning pt, pt attempted to throw a fist at [facility].
[2024-12-08] MEDS: SEROQUEL 25 MG PO (13:38)
--- NOTE | 2024-12-08 14:00 | PTCARENOTE ---
1:1 supervision initiated as ordered. Pt restless and agitated. 1:1 form at bedside.
--- NOTE | 2024-12-08 14:32 | CON.NEURO ---
Consultation
Order
Date of Consultation: 12/08/24
Requesting Provider: Maral Vivar MD
Reason for Consult: Parkinsonism
Neurology Consultation Note.
HPI: This is a 69-year-old RH man who presented to [facility] on 12/07/2024 with worsening of encephalopathy.
Mr. Burleson reports no complaints.
According to patient's daughter Zelalem developed right hand resting and action tremor around 2019. Concurrent with the onset of tremors, the patient developed nightmares as well as short-term memory problems
In March 2024, the patient suffered a fall resulting in a traumatic brain injury, skull fractures, and ICH. This event significantly exacerbated his symptoms. Post-fall, the patient developed visual hallucinations.
Mr. Younger has been under care of Sandra Velasco DO who is a movement disorder specialist as well as LATRICIA Real([facility]) and had inconclusive DaTscan around 2 years ago.
The patient was seen by neurology service on several occasions for transient monoparesis. The workup was unremarkable. Based on EMR the patient was 'thought to have a functional neurologic disorder' producing the tremor. Sinemet as well as
propranolol were reportedly ineffective. Tegretol was beneficial for tremor control.
VS: 166/81-183/106, 72�53, afebrile
EKG: Sinus bradycardia of 59, QTc Int : 439 ms
PDMP: Hydrocodone-Acetamin 5-325 Mg 30 tablets filled in on 10/25/2024, Clonazepam 1 mg 115 tablets filled in on 09/15/2024.
Labs: Normal glucose, sodium, WBCs, creatinine, unremarkable UA
CT head wo contrast-Encephalomalacia in the bilateral frontal lobes, mild subcortical, deep, and periventricular white matter low-attenuation, compatible with underlying changes of chronic small vessel ischemic disease.
According to EMR patient is under care of Sandra Velasco DO who is a movement disorder specialist. The patient was 'thought to have a functional neurologic disorder' producing the tremor. Sinemet as well as propranolol were reportedly
ineffective. Tegretol was beneficial for tremor control.
PMH: TBI(03/2024), R frontal SDH,CAD, HTN, DLP, functional neurologic disorder, LS DJD, history of right retinal detachment (10/2022), BPH, ASHLY, polyneuropathy
PSH: right inguinal hernia repair, cystoscopy,
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
FH: Not contributory
All: Carbidopa-levodopa�nausea, emesis, memantine�diarrhea, statins�muscle cramps,
ROS: Limited due to encephalopathy, positive tremor, visual hallucinations, sleep hyperactive behavior
General: Well developed. In no acute distress. On 121
Cardio: Regular rate and rhythm without murmur. Extremities are without cyanosis or edema.
Neuro:
Mental Status: Alert, oriented to name, age, not to month or year. Poor attention and comprehension. Follows simple requests intermittently. Nonfluent.
Cranial Nerves: Bilateral exotropia in primary gaze, pupils 2 mm, nonreactive. Blink to threat right more than left. No ptosis. No nystagmus. No facial weakness, hearing is preserved. No dysarthria. No dysphonia
Motor: Increased motor tone right more than left. All limbs are antigravity spontaneously purposefully
Reflexes: Bilateral grasp
Sensory: Limited exam due to poor attention
Coordination: Resting right greater than left hand tremor. Did not cooperate with dysmetria test
Gait: deferred
Assessment and Plan:
I. 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
II. TBI with large bifrontal encephalomalacia
II. Multifactorial encephalopathy (neurodegenerative, post traumatic, toxic)
-Fall and delirium precautions
-Please obtain medical records from LATRICIA Real and Sandra Velasco, DO
-Would defer starting dopamine agonist while hospitalized
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
-Avoid medications known to cause tremor as a side effect (Depakote)
-The case was discussed with patient's daughter
-Please recall neurology service with any questions or concerns
I personally reviewed all radiology and labs along with past medical records pertinent to current medical problems. Total time spent in patient care is 60 minutes.
Thank you for allowing us to participate in the care of this patient. We will continue to follow. Please do not hesitate to contact us with any questions or concerns.
Subjective/Objective
Subjective Data
Date of Service: December 08, 2024
Objective Data
Vital Signs
Temp Pulse Resp BP Pulse Ox
36.8 C 71 18 183/106 96
12/08/24 13:19 12/08/24 13:19 12/08/24 13:19 12/08/24 13:19 12/08/24 13:19
Lab Results
12/08/24 07:07
12/08/24 07:07
Sodium 145 mmol/L (135-145) 12/08/24 07:07
Potassium 4.1 mmol/L (3.5-5.1) 12/08/24 07:07
BUN 15 mg/dl (9-20) 12/08/24 07:07
Glucose 82 mg/dl (70-99) 12/08/24 07:07
Calcium 10.0 mg/dl (8.4-10.2) 12/08/24 07:07
Patient Allergies
carbidopa [From Sinemet] Allergy (Verified 12/07/24 18:35)
Nausea / Vomiting
levodopa [From Sinemet] Allergy (Verified 12/07/24 18:35)
Nausea / Vomiting
memantine [From Namenda] Allergy (Verified 12/07/24 18:35)
diarrhea
[id number] Reductase Inhibitor Allergy (Verified 12/07/24 18:35)
muscle cramps
Medications
-
Active Medications
Generic Name Dose Route Start Last Admin
Trade Name Freq PRN Reason Stop Dose Admin
Acetaminophen 650 mg 12/08/24 01:03
Acetaminophen 325 Mg Tablet PO 01/05/25 01:02
Q4HPRN PRN
Mild Pain / Temp > 101
Amlodipine Besylate 2.5 mg 12/08/24 08:00 12/08/24 08:46
Amlodipine 2.5 Mg Tablet PO 01/05/25 07:59 2.5 mg
DAILY AMBER Administration
Clotrimazole 1 applic 12/08/24 08:00 12/08/24 09:28
Clotrimazole 1% (Cream) 30 Gram Tube TOPICAL 01/05/25 07:59 1 applic
BID AMBER Administration
Divalproex Sodium 500 mg 12/08/24 08:00 12/08/24 08:44
Divalproex 250 Mg Delayed Release (12 Hr) Tablet PO 01/05/25 07:59 500 mg
BID AMBER Administration
Doxazosin Mesylate 4 mg 12/08/24 22:00
Doxazosin 4 Mg Tablet PO 01/05/25 21:59
HS AMBER
Lisinopril 40 mg 12/08/24 08:00 12/08/24 08:45
Lisinopril 20 Mg Tablet PO 01/05/25 07:59 40 mg
DAILY AMBER Administration
Melatonin 10 mg 12/08/24 22:00
Melatonin 5 Mg Tablet PO 01/05/25 21:59
HS AMBER
Quetiapine Fumarate 50 mg 12/08/24 16:00
Quetiapine 25 Mg Tablet PO 01/05/25 15:59
TID AMBER
Quetiapine Fumarate 25 mg 12/08/24 13:11 12/08/24 13:38
Quetiapine 25 Mg Tablet PO 01/05/25 13:10 25 mg
Q6HPRN PRN Administration
agitation
Sertraline HCl 50 mg 12/09/24 08:00
Sertraline 50 Mg Tablet PO 01/06/25 07:59
DAILY AMBER
Sodium Chloride 0 flush 12/08/24 02:00
Sodium Chloride 0.9% (Flush) Syringe IV 01/05/25 01:59
PER PROTOCOL AMBER
Home Medications
�Medication �Instructions �Recorded
clonazepam 1 mg tablet 1 mg PO HS Mental Health/Anxiety 10/21/22
lisinopril 40 mg tablet 40 mg PO DAILY Blood Pressure 08/27/23
Fiber Gummies 5mg 15 mg PO HS Constipation 09/18/24
donepezil 10 mg tablet 10 mg PO HS Neurological Condition 09/18/24
doxazosin 4 mg tablet 4 mg PO HS Blood Pressure 09/18/24
escitalopram oxalate 20 mg tablet 20 mg PO DAILY Mental Health 09/18/24
cephalexin 500 mg tablet 500 mg PO BID 10 days #20 tabs 12/05/24
clotrimazole 1 % topical cream 1 applic topical BID 4 weeks #45 12/05/24
grams
acetaminophen 500 mg tablet 1,000 mg PO NOON Pain 12/07/24
(Tylenol Extra Strength)
amlodipine 2.5 mg tablet 2.5 mg PO DAILY Blood Pressure 12/07/24
divalproex 250 mg tablet,delayed 500 mg PO BID Neurological 12/07/24
release Condition
hydrocodone 5 mg-acetaminophen 325 1 tab PO BID Pain 12/07/24
mg tablet
melatonin 5 mg tablet 15 mg PO HS Sleep 12/07/24
quetiapine 50 mg tablet 50 mg PO BID Neurological Condition 12/07/24
therapeutic multivitamin 1 tab PO NOON Supplement 12/07/24
Vital Signs and Labs
-
Vital Signs and Labs:
Vital Signs
Temp Pulse Resp BP Pulse Ox
36.8 C 71 18 183/106 96
12/08/24 13:19 12/08/24 13:19 12/08/24 13:19 12/08/24 13:19 12/08/24 13:19
Lab Results
12/08/24 07:07
12/08/24 07:07
Sodium 145 mmol/L (135-145) 12/08/24 07:07
Potassium 4.1 mmol/L (3.5-5.1) 12/08/24 07:07
BUN 15 mg/dl (9-20) 12/08/24 07:07
Glucose 82 mg/dl (70-99) 12/08/24 07:07
Calcium 10.0 mg/dl (8.4-10.2) 12/08/24 07:07
Medications
-
Medications:
Generic Name Dose Route Start Last Admin
Trade Name Freq PRN Reason Stop Dose Admin
Acetaminophen 650 mg 12/08/24 01:03
Acetaminophen 325 Mg Tablet PO 01/05/25 01:02
Q4HPRN PRN
Mild Pain / Temp > 101
Amlodipine Besylate 2.5 mg 12/08/24 08:00 12/08/24 08:46
Amlodipine 2.5 Mg Tablet PO 01/05/25 07:59 2.5 mg
DAILY AMBER Administration
Clotrimazole 1 applic 12/08/24 08:00 12/08/24 09:28
Clotrimazole 1% (Cream) 30 Gram Tube TOPICAL 01/05/25 07:59 1 applic
BID AMBER Administration
Divalproex Sodium 500 mg 12/08/24 08:00 12/08/24 08:44
Divalproex 250 Mg Delayed Release (12 Hr) Tablet PO 01/05/25 07:59 500 mg
BID AMBER Administration
Doxazosin Mesylate 4 mg 12/08/24 22:00
Doxazosin 4 Mg Tablet PO 01/05/25 21:59
HS AMBER
Lisinopril 40 mg 12/08/24 08:00 12/08/24 08:45
Lisinopril 20 Mg Tablet PO 01/05/25 07:59 40 mg
DAILY AMBER Administration
Melatonin 10 mg 12/08/24 22:00
Melatonin 5 Mg Tablet PO 01/05/25 21:59
HS AMBER
Quetiapine Fumarate 50 mg 12/08/24 16:00
Quetiapine 25 Mg Tablet PO 01/05/25 15:59
TID AMBER
Quetiapine Fumarate 25 mg 12/08/24 13:11 12/08/24 13:38
Quetiapine 25 Mg Tablet PO 01/05/25 13:10 25 mg
Q6HPRN PRN Administration
agitation
Sertraline HCl 50 mg 12/09/24 08:00
Sertraline 50 Mg Tablet PO 01/06/25 07:59
DAILY AMBER
Sodium Chloride 0 flush 12/08/24 02:00
Sodium Chloride 0.9% (Flush) Syringe IV 01/05/25 01:59
PER PROTOCOL AMBER
Home Medications
-
Home Medications
clonazepam 1 mg tablet 1 mg PO HS Mental Health/Anxiety 10/21/22
lisinopril 40 mg tablet 40 mg PO DAILY Blood Pressure 08/27/23
Fiber Gummies 5mg 15 mg PO HS Constipation 09/18/24
donepezil 10 mg tablet 10 mg PO HS Neurological Condition 09/18/24
doxazosin 4 mg tablet 4 mg PO HS Blood Pressure 09/18/24
escitalopram oxalate 20 mg tablet 20 mg PO DAILY Mental Health 09/18/24
cephalexin 500 mg tablet 500 mg PO BID 10 days #20 tabs 12/05/24
clotrimazole 1 % topical cream 1 applic topical BID 4 weeks #45 grams 12/05/24
acetaminophen 500 mg tablet (Tylenol Extra Strength) 1,000 mg PO NOON Pain 12/07/24
amlodipine 2.5 mg tablet 2.5 mg PO DAILY Blood Pressure 12/07/24
divalproex 250 mg tablet,delayed release 500 mg PO BID Neurological Condition 12/07/24
hydrocodone 5 mg-acetaminophen 325 mg tablet 1 tab PO BID Pain 12/07/24
melatonin 5 mg tablet 15 mg PO HS Sleep 12/07/24
quetiapine 50 mg tablet 50 mg PO BID Neurological Condition 12/07/24
therapeutic multivitamin 1 tab PO NOON Supplement 12/07/24
[2024-12-08] MEDS: MELATONIN 10 MG PO (21:03)
[2024-12-08] MEDS: CARDURA 4 MG PO (21:03)
[2024-12-09] VITALS (8 sets, daily range): BP systolic 104–161; BP diastolic 66–80; PULSE 65
[2024-12-09 08:19] LABS: Depakane 35.3 ug/ml (50.0-120.0)
[2024-12-09] MEDS: ZOLOFT 50 MG PO (08:40)
[2024-12-09] MEDS: ZESTRIL 40 MG PO (08:40)
[2024-12-09] MEDS: SEROQUEL 50 MG PO ×3 (08:40→21:19)
[2024-12-09] MEDS: NORVASC 2.5 MG PO (08:40)
[2024-12-09] MEDS: DEPAKOTE (12 HR RELEASE) 500 MG PO ×2 (08:40→20:41)
[2024-12-09] MEDS: LOTRIMIN 1% CREAM TOPICAL (08:44)
[2024-12-09 09:31] LABS: Vitamin D, 25-OH*** 36.4 ng/mL (30-80)
[2024-12-09 10:20] LABS: Folate > 20.0 ng/ml (2.76-20); Vitamin B12 870 pg/ml (239-931)
--- NOTE | 2024-12-09 12:12 | W.PN.HOSP.TC ---
Today's Communication/Plan
-
increase Depakote and monitor response
monitor BP
Assessment / Plan
Assessment / Plan
#Acute Agitation / Delirium likely secondary to progression of dementia possibly Lewy body
#Senile Dementia with behavioral Disturbance
#Traumatic Brain Injury (March 2024)
Discussed with daughter over the phone in detail. Patient with intermittent episode of severe agitation and confusions.
Patient was agitated yesterday and GLASS ETCHER HELPER were called in
CBC normal. CMP BMP normal. Afebrile. Doubt metabolic cause.
Continue with home medications and as needed Haldol
CT head without acute changes
Monitor for behavioral disturbances. Continue to reorient.
Continue with Seroquel increased to 50mg TID. Zoloft 50mg daily.
Cont w/seroquel 25mg prn
Off donepezil, lexapro.
Psych following
Currently on 1:1
Depakote level low at 35.9-?compliant with meds. unclear. Can increase dose to see response. Not sure if depakote alone factoring to patient RUE tremors
can probably do 750mg/500mg depakote and monitor
Case management for assistance
Benign Hypertension
Continue with Norvasc and lisinopril
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
BPH
On Cardura
DVT prophylaxis-lovenox
Discussed with patient daughter over the phone in details.
Anticipated Discharge: 24 - 48 hours
Subjective/Interval History
-
Date of Service: December 09, 2024
not much appetite
currently continues to talk about random things
Objective Data
-
Vital Signs:
Vital Signs
Temp Pulse Resp BP Pulse Ox
97.8 F 69 19 145/79 95
12/09/24 10:50 12/09/24 10:50 12/09/24 10:50 12/09/24 10:50 12/09/24 10:50
I&O
12/08/24 12/09/24 12/10/24
06:59 06:59 06:59
Intake Total 150 / 150
Output Total 250 / 250
Balance -100 / -100
Physical Exam
-
General: Well Developed, Well Nourished and No Apparent Distress
HEENT: Normocephalic, Atraumatic and Moist Mucous Membranes
Respiratory: Clear to Auscultation; Negative Wheezes, Rales or Rhonchi
Cardiac: Regular Rhythm and S1/S2
GI: Soft, Nontender and Nondistended
Musculoskeletal: No Clubbing, No Cyanosis and No Edema
Neuro: Awake, Alert and Tremors (rt sided tremor -chronic ); Negative Slurred Speech
Psych: Calm
--- NOTE | 2024-12-09 12:52 | W.PN.UPDATE ---
Update Note
Progress Note Update
patient seen chart reviewed. discussed w nursing. the patient remains confused but was quite pleasant. he seems to think he is going to surgery and is npo. explained to him as have others that he can eat at this point...no surgery is planned.
hopefully when he gets hungrier he will eat! his one to one is keeping him hydrated. he is on one to one as he has hx of hightailing it out of his room and down the steps and his room is right next door. if he could be closer to nurse's station
maybe a bed monitor would suffice. will increase depakote to therpeutic. discussed w hospitalist that neuro recommended against depakote bc tremor. all of psych meds have tremor as a side effect and in my opinion depakote will have less impact on
tremor than increase in antipsychotic given eps. also he was placed on depakote by his out pt neuro. will follow
[2024-12-09] MEDS: DEPAKOTE (12 HR RELEASE) 250 MG PO (14:01)
--- NOTE | 2024-12-09 16:29 | CM ---
Met with patient's daughter to obtain information for assessment. Patient's daughter stated that patient lives with his in a single one story home with three steps to enter. His assists with all of patient's ADLs and personal care and does
all the special class welder, cooking, cleaning and laundry. He has a walker and a CPAP. He has not had VN. He did go to [facility] for acute rehab.
Patient has a prescription plan and uses, [facility] for all medications.
His PCP is, Shaheen Rivas.
OBS letter signed, reviewed, now on chart.
Plan: Case management will continue to follow and assist with discharge planning. SNF, home if his can support him and he progresses with PT.
[2024-12-09] MEDS: LOVENOX 40 MG SC (18:00)
[2024-12-09] MEDS: SENOKOT-S 1 TABLET PO (20:41)
[2024-12-09] MEDS: DULCOLAX 10 MG PO (21:18)
[2024-12-09] MEDS: MELATONIN 10 MG PO (21:18)
[2024-12-09] MEDS: CARDURA 4 MG PO (21:20)
[2024-12-09] MEDS: LOTRIMIN 1% CREAM 1 APPLIC TOPICAL (21:36)
[2024-12-10 03:00] VITALS: BP 128/64
--- NOTE | 2024-12-10 06:20 | PTCARENOTE ---
This RN arrived into patient's room at shift change and there was no one to one observer. BESSEMER REGULATOR Bessy Skelton notified. Bed alarm placed under patient. Patient in room closer to nurse's station. Order for one to one observer cancelled. Will continue
to monitor.
[2024-12-10 07:27] LABS: % Basophils 0.5 % (0-2); % Eosinophils 3.2 % (0-6); % Immature Granulocytes 0.4 % (0-0.5); % Lymphocytes 43.6 % (20.5-51.1); % Monocytes 9.6 % (1.7-9.3); % Neutrophils 42.7 % (42.2-75.2); Absolute Eosinophils 0.2 10^3/uL (0-0.7); Absolute Lymphocytes 3.3 10^3/uL (1.2-3.4); Absolute Monocytes 0.7 10^3/uL (0.1-0.6); Absolute Neutrophils 3.3 10^3/uL (1.4-6.5); Hematocrit 38.9 % (39.0-52.0); Hemoglobin 13.2 g/dL (13.0-18.0); Mean Corp Hgb Conc. 33.9 g/dL (33.0-37.0); Mean Corpuscular Hgb 30.4 pg (27.0-31.0); Mean Corpuscular Volume 89.6 fL (80.0-94.0); Mean Platelet Volume 10.6 fL (7.4-10.4); Nucleated Red Blood Cells % 0 % (-); Platelet Count 193 10^3/uL (130-400); Red Blood Cell Count 4.34 10^6/uL (4.70-6.10); Red Cell Dist. Width 14.8 % (11.5-14.5); White Blood Cell Count 7.6 10^3/uL (4.8-10.8)
[2024-12-10 07:40] LABS: Blood Urea Nitrogen 27 mg/dl (9-20); Calcium 9.8 mg/dl (8.4-10.2); Carbon Dioxide 32 mmol/L (22-30); Chloride 103 mmol/L (98-107); Estimated Creatinine Clearance 86 ml/min; Glucose 91 mg/dl (70-99); Sodium 144 mmol/L (135-145); eGFR > 60.00
[2024-12-10 07:47] VITALS: BP 162/73
[2024-12-10] MEDS: SEROQUEL 50 MG PO ×3 (09:38→21:52)
[2024-12-10] MEDS: DEPAKOTE (12 HR RELEASE) 500 MG PO (09:38)
[2024-12-10] MEDS: ZESTRIL 40 MG PO (09:38)
[2024-12-10] MEDS: SENOKOT-S 1 TABLET PO (09:38)
[2024-12-10] MEDS: VITAMIN D3 (cholecalciferol) 125 MCG PO (09:38)
[2024-12-10] MEDS: ZOLOFT 50 MG PO (09:39)
[2024-12-10] MEDS: LOTRIMIN 1% CREAM 1 APPLIC TOPICAL ×2 (09:39→21:42)
[2024-12-10] MEDS: NORVASC 2.5 MG PO (09:39)
[2024-12-10] MEDS: MIRALAX 17 GRAMS PO (09:39)
--- NOTE | 2024-12-10 10:25 | W.PN.UPDATE ---
Update Note
Progress Note Update
Patient is very confused, disoriented in time and place. His can labeler memory is also impaired as he could not remember his birthday although he knew the name of current president and was able to do simple calculations.
He was reasonably cooperative and not agitated or aggressive.
Depakene level is low at 35.3 so increase is warranted.
Will increase to 1500 per day and repeat the level.
Will continue F/U.
--- NOTE | 2024-12-10 10:56 | W.PN.HOSP.TC ---
Today's Communication/Plan
-
increase depakote and monitor
bowel regimen
monitor po intake
Assessment / Plan
Assessment / Plan
#Acute Agitation / Delirium likely secondary to progression of dementia possibly Lewy body
#Senile Dementia with behavioral Disturbance
#Traumatic Brain Injury (March 2024)
Patient with intermittent episode of severe agitation and confusions.
CBC normal. CMP BMP normal. Afebrile. Doubt metabolic cause.
CT head without acute changes
Monitor for behavioral disturbances. Continue to reorient.
Continue with Seroquel increased to 50mg TID. Zoloft 50mg daily.
Cont w/seroquel 25mg prn
Off donepezil, lexapro.
off 1:1. On bed alarm
Depakote level low at 35.9-?compliant with meds. unclear. Can increase dose to see response. Not sure if depakote alone factoring to patient RUE tremors
Depakote further increased to 1500mg daily (500mg am/1000mg pm). Monitor response.
Case management for assistance
Psych following
Abdomen pain ?due to constipation
bowel regimen started
Benign Hypertension
Continue with Norvasc and lisinopril
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
BPH
On Cardura
DVT prophylaxis-lovenox
Discussed with patient daughter over the phone in details on daily basis.
Anticipated Discharge: 24 - 48 hours
Subjective/Interval History
-
Date of Service: December 10, 2024
Remains confused w/some knowledge about his whereabouts
Denies abdomen pain today.
Awaiting for breakfast
Objective Data
-
Labs:
Laboratory Results
12/10/24
06:41
WBC 7.6
Hgb 13.2
Hct 38.9 L
Plt Count 193
Sodium 144
Potassium 4.0
Chloride 103
Carbon Dioxide 32 H
BUN 27 H
Creatinine 0.9
Glucose 91
Calcium 9.8
Vital Signs:
Vital Signs
Temp Pulse Resp BP Pulse Ox
97.6 F 59 21 162/73 93
12/10/24 07:47 12/10/24 07:47 12/10/24 07:47 12/10/24 07:47 12/10/24 07:47
I&O
12/09/24 12/10/24 12/11/24
06:59 06:59 06:59
Intake Total 150 / 150 1050 / 1050
Output Total 250 / 250
Balance -100 / -100 1050 / 1050
Physical Exam
-
General: Well Developed, Well Nourished and No Apparent Distress
HEENT: Normocephalic, Atraumatic and Moist Mucous Membranes
Respiratory: Clear to Auscultation; Negative Wheezes, Rales or Rhonchi
Cardiac: Regular Rhythm and S1/S2
GI: Soft, Nontender and Nondistended
Musculoskeletal: No Clubbing, No Cyanosis and No Edema
Neuro: Awake, Alert and Tremors (rt sided tremor -chronic ); Negative Slurred Speech
Psych: Calm
Data Reviewed
-
Total Time Spent with Patient (in minutes): 55
[2024-12-10 11:36] VITALS: BP 114/75
[2024-12-10] MEDS: KEFLEX 500 MG PO ×3 (13:53→21:44)
[2024-12-10 15:38] VITALS: BP 117/75
[2024-12-10] MEDS: LOVENOX 40 MG SC (17:03)
[2024-12-10 19:00] VITALS: BP 123/81
[2024-12-10] MEDS: SEROQUEL PO (21:43)
[2024-12-10] MEDS: CARDURA 4 MG PO (21:44)
[2024-12-10] MEDS: DULCOLAX 10 MG PO (21:44)
[2024-12-10] MEDS: MELATONIN 10 MG PO (21:45)
[2024-12-10] MEDS: DEPAKOTE ER (24 HR RELEASE) 1000 MG PO (21:45)
[2024-12-10] MEDS: SENOKOT-S PO (21:48)
[2024-12-10 23:03] VITALS: BP 146/72
[2024-12-11 04:00] VITALS: BP 154/75
[2024-12-11 06:25] LABS: Depakane 38.9 ug/ml (50.0-120.0)
[2024-12-11 07:34] VITALS: BP 144/73
[2024-12-11] MEDS: KEFLEX 500 MG PO ×4 (08:48→21:29)
[2024-12-11] MEDS: MIRALAX 17 GRAMS PO (08:48)
[2024-12-11] MEDS: ZESTRIL 40 MG PO (08:48)
[2024-12-11] MEDS: NORVASC 2.5 MG PO (08:48)
[2024-12-11] MEDS: SEROQUEL 50 MG PO ×3 (08:48→21:30)
[2024-12-11] MEDS: DEPAKOTE (12 HR RELEASE) 500 MG PO (08:48)
[2024-12-11] MEDS: SENOKOT-S 1 TABLET PO ×2 (08:48→21:28)
[2024-12-11] MEDS: ZOLOFT 50 MG PO (08:48)
[2024-12-11] MEDS: VITAMIN D3 (cholecalciferol) 125 MCG PO (08:48)
[2024-12-11] MEDS: LOTRIMIN 1% CREAM 1 APPLIC TOPICAL ×2 (08:49→21:28)
--- NOTE | 2024-12-11 10:55 | W.PN.HOSP.TC ---
Addendum entered and electronically signed by Ezequiel Lakhani MD 12/11/24 12:13:
General: Well Developed, Well Nourished and No Apparent Distress
HEENT: Normocephalic, Atraumatic and Moist Mucous Membranes
Respiratory: Clear to Auscultation; Negative Wheezes, Rales or Rhonchi
Cardiac: Regular Rhythm and S1/S2
GI: Soft, Nontender and Nondistended
Musculoskeletal: No Clubbing, No Cyanosis and No Edema
Neuro: Awake, Alert and Tremors (RUE tremor -chronic ); Negative Slurred Speech
Psych: Calm
Original Note:
Today's Communication/Plan
-
Psych adjusting meds
Cont depakote/seroquel
Assessment / Plan
Assessment / Plan
#Acute Agitation / Delirium likely secondary to progression of dementia possibly Lewy body
#Senile Dementia with behavioral Disturbance
#Traumatic Brain Injury (March 2024)
Patient with intermittent episode of severe agitation and confusions.
CBC normal. CMP BMP normal. Afebrile. Doubt metabolic cause.
CT head without acute changes
Monitor for behavioral disturbances. Continue to reorient.
Continue with Seroquel increased to 50mg TID. Zoloft 50mg daily.
Cont w/seroquel 25mg prn
Off donepezil, lexapro.
off 1:1. On bed alarm
Depakote level with mild increase to 39 now. unclear. Can increase dose to see response. Not sure if depakote alone factoring to patient RUE tremors
Depakote further increased to 1500mg daily (500mg am/1000mg pm). Monitor response.
Case management for assistance
Psych following
Abdomen pain ?due to constipation
bowel regimen started
Benign Hypertension
Continue with Norvasc and lisinopril
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
MASD groin w/superimposed cellulitis
on keflex
BPH
On Cardura
DVT prophylaxis-lovenox
Discussed with patient daughter over the phone in details on daily basis.
PT-SNF vs. home PT. Family to d/w among themselves about SNF vs taking patient home.
Anticipated Discharge: 24 - 48 hours
Subjective/Interval History
-
Date of Service: December 11, 2024
calm this morning
but remains confused
no agitation episode per RN
Objective Data
-
Vital Signs:
Vital Signs
Temp Pulse Resp BP Pulse Ox
98.1 F 57 20 144/73 95
12/11/24 07:34 12/11/24 08:48 12/11/24 07:34 12/11/24 08:48 12/11/24 07:34
I&O
12/10/24 12/11/24 12/12/24
06:59 06:59 06:59
Intake Total 1050 / 1050 240 / 240
Balance 1050 / 1050 240 / 240
--- NOTE | 2024-12-11 11:05 | W.PN.UPDATE ---
Update Note
Progress Note Update
Patient is much calmer today, not agitated and more cooperative. His significant other was visiting, she sees improvement but is concerned about his aggression prior to being hospitalized as well as him not recognizing his house and wanting to go to
' the other house ' when he is home.
For now I would continue current psychotropic meds.
Is partner is not sure if she would feel comfortable taking him home and of course the course of dementia is generally downhill so placement would have to be considered.
[2024-12-11 11:24] VITALS: BP 130/66
[2024-12-11 15:32] VITALS: BP 146/77
[2024-12-11] MEDS: LOVENOX 40 MG SC (18:11)
[2024-12-11] MEDS: DEPAKOTE ER (24 HR RELEASE) 1000 MG PO (21:29)
[2024-12-11] MEDS: DULCOLAX 10 MG PO (21:29)
[2024-12-11] MEDS: CARDURA 4 MG PO (21:30)
[2024-12-11] MEDS: MELATONIN 10 MG PO (21:30)
[2024-12-11 23:01] VITALS: BP 164/81
[2024-12-12 06:27] LABS: % Basophils 0.6 % (0-2); % Eosinophils 3.3 % (0-6); % Immature Granulocytes 0.4 % (0-0.5); % Lymphocytes 38.7 % (20.5-51.1); % Monocytes 10.7 % (1.7-9.3); % Neutrophils 46.3 % (42.2-75.2); Absolute Eosinophils 0.2 10^3/uL (0-0.7); Absolute Lymphocytes 2.7 10^3/uL (1.2-3.4); Absolute Monocytes 0.7 10^3/uL (0.1-0.6); Absolute Neutrophils 3.2 10^3/uL (1.4-6.5); Hematocrit 38.1 % (39.0-52.0); Hemoglobin 13.1 g/dL (13.0-18.0); Mean Corp Hgb Conc. 34.4 g/dL (33.0-37.0); Mean Corpuscular Hgb 30.8 pg (27.0-31.0); Mean Corpuscular Volume 89.4 fL (80.0-94.0); Mean Platelet Volume 11.3 fL (7.4-10.4); Nucleated Red Blood Cells % 0 % (-); Platelet Count 192 10^3/uL (130-400); Red Blood Cell Count 4.26 10^6/uL (4.70-6.10); Red Cell Dist. Width 14.3 % (11.5-14.5); White Blood Cell Count 6.9 10^3/uL (4.8-10.8)
[2024-12-12 06:52] LABS: Blood Urea Nitrogen 18 mg/dl (9-20); Calcium 9.6 mg/dl (8.4-10.2); Carbon Dioxide 28 mmol/L (22-30); Chloride 109 mmol/L (98-107); Estimated Creatinine Clearance 96 ml/min; Glucose 86 mg/dl (70-99); Sodium 146 mmol/L (135-145); eGFR > 60.00
[2024-12-12 07:29] VITALS: BP 186/92
[2024-12-12] MEDS: MIRALAX PO (08:07)
[2024-12-12] MEDS: SENOKOT-S PO ×2 (08:07→23:09)
[2024-12-12] MEDS: NORVASC 2.5 MG PO (08:41)
[2024-12-12] MEDS: SEROQUEL 50 MG PO ×2 (08:41→15:25)
[2024-12-12] MEDS: ZESTRIL 40 MG PO (08:41)
[2024-12-12] MEDS: KEFLEX 500 MG PO ×3 (08:43→17:17)
[2024-12-12] MEDS: LOTRIMIN 1% CREAM 1 APPLIC TOPICAL (08:43)
[2024-12-12] MEDS: DEPAKOTE (12 HR RELEASE) 500 MG PO (08:43)
[2024-12-12] MEDS: ZOLOFT 50 MG PO (08:43)
[2024-12-12] MEDS: VITAMIN D3 (cholecalciferol) 125 MCG PO (08:43)
--- NOTE | 2024-12-12 10:47 | CM ---
Addendum entered by Lilian Charles 12/12/24 16:56:
Approved skilled rehab by [facility]
Auth # [id number]
Start date 12/13/24, LCD/NRD 12/19/24
updates to p# [phone]
Ambulance auth with Acute care- #[id number]
[facility]ly [facility]
report# [phone]
fax# [phone]
Plan: Skilled rehab tomorrow.
Addendum entered by Lilian Charles 12/12/24 16:20:
Participating caregiver list provided to spouse for [facility] home health care providers.
Addendum entered by Lilian Charles 12/12/24 16:14:
Bed available for tomorrow.
[facility] NPI# [id number]
Dr Dalia Ponce NPI# [id number]
Addendum entered by Lilian Charles 12/12/24 14:08:
Patient accepted at [facility], await NPIs and will initiate auth, need to verify bed available today.
Addendum entered by Lilian Charles 12/12/24 12:20:
Spoke with patients spouse bedside. She is beside herself with what to do, per spouse daughter Ania is the guardian of the patient.
Mother is agreeable to skilled rehab, would like it closer to daughter in [place].
Referrals sent.
Left VM for daughter.
Spoke with door to door sales representative from [address]- patient has this secondary.
[facility] ID # [id number]
per rep patient became active 11/24/24.
phone number for home health unit [phone].
Spoke with Rika, aman list of participating caregiver agencies in [place], emailed.
Await PT/OT eval for dispositon recommendations.
[place] [phone] health and social care teacher also following.
Original Note:
TC from patients spouse Shanna re home health aides.
Per Shanna patient has [address] and was told behavioral health case manager at the hospital would need to set up [facility]. Spouse upset and doesnt know wheat to do.
Per spouse global marketing manager at [facility] is Brandy Fortunato [phone].
CM called [facility] behavioral health case manager and asked her if we were setting up [facility] or is she would be. She was under the impression patient was already set up with and gave the spouse a list. This CN explained patient is not set with [facility] and requested a list of
[facility] they are contracted with in the area. [facility] CM very abrupt and stated she had already given the family a long list. CM requested [facility] agencies to help assist the family and [facility] CM became veryt defensive and stated again she already
gave a list. [facility] CM then hung up on this CM.
[2024-12-12 11:05] VITALS: BP 109/70
--- NOTE | 2024-12-12 11:50 | W.PN.HOSP.TC ---
Today's Communication/Plan
-
Continue current psychotropic regimen
Continue Keflex to complete 7 days
Monitor mental state
Disposition planning
Assessment / Plan
Assessment / Plan
#Acute Agitation/Delirium
#Senile Dementia with behavioral Disturbance
#Traumatic Brain Injury (March 2024)
-Patient with intermittent episode of severe agitation and confusions.
-CBC normal. CMP BMP normal. Afebrile. Doubt metabolic cause.
-CT head without acute changes; likely progressive dementia, potential Lewy body component
-Monitor for behavioral disturbances. Continue to reorient. Delirium precautions
-Seroquel increased to 50 mg 3 times daily with 25 mg as needed
-SSRI was transition from Lexapro to Zoloft 50 mg daily
-Depakote increased to 500 mg a.m., 1000 mg p.m. due to low levels on arrival
-Donepezil was discontinued
-Patient's mood appears stable, calm in the room this morning
-Off 1:1 obs
#Abdomen pain
-Likely due to constipation, was started on bowel regimen
-Had bowel movement this morning
#Benign Hypertension
-Continue with Norvasc and lisinopril
History of traumatic brain injury
-secondary to fall leading to brain hemorrhage w/Large bifrontal encephalomalacia
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
#MASD groin w/superimposed cellulitis
-on keflex 500 mg 4 times daily, will continue to complete 7-day course
#BPH
-On Cardura
DVT prophylaxis: lovenox
CODE STATUS: DNR
Diet: Regular
Disposition: PT-SNF vs. home PT. Family to d/w among themselves about SNF vs taking patient home.
Anticipated Discharge: Today
Subjective/Interval History
-
Date of Service: December 12, 2024
Seen and examined at the bedside. No acute events reported overnight. AFVSS this morning
Patient appears calm, no signs of agitation.
ROS limited from dementia
Objective Data
-
Labs:
Laboratory Results
12/12/24
05:31
WBC 6.9
Hgb 13.1
Hct 38.1 L
Plt Count 192
Sodium 146 H
Potassium 4.0
Chloride 109 H
Carbon Dioxide 28
BUN 18
Creatinine 0.8
Glucose 86
Calcium 9.6
Vital Signs:
Vital Signs
Temp Pulse Resp BP Pulse Ox
97.9 F 88 18 109/70 95
12/12/24 07:29 12/12/24 11:05 12/12/24 07:29 12/12/24 11:05 12/12/24 07:29
I&O
12/11/24 12/12/24 12/13/24
06:59 06:59 06:59
Intake Total 900 / 900
Balance 900 / 900
Review of Systems
-
Unable to obtain full review of systems at this time due to: Dementia
Physical Exam
-
General: Well Developed, Well Nourished and No Apparent Distress
HEENT: Normocephalic, Atraumatic, Moist Mucous Membranes and Anicteric
Respiratory: Clear to Auscultation and Non Labored Respirations
Cardiac: Regular Rhythm and S1/S2; Negative Murmur, Rub or Gallop
GI: Soft, Nontender, Nondistended and Normal Bowel Sounds
Musculoskeletal: No Clubbing, No Cyanosis and No Edema
Skin: Warm, Dry and Normal Turgor; Negative Rash
Neuro: Awake, Alert and Nonfocal/Grossly Intact; Negative Tremors
Psych: Calm
Data Reviewed
-
Labs: Labs Reviewed by me
[2024-12-12 12:10] VITALS: BP 155/83; PULSE 66; O2SAT 96
[2024-12-12 15:21] VITALS: BP 124/65
[2024-12-12] MEDS: LOVENOX 40 MG SC (17:17)
--- NOTE | 2024-12-12 21:52 | W.PN.UPDATE ---
Update Note
Progress Note Update
Patient is agitated, trying to get out of bed, kicking, being verbally and physically aggressive.
One time ordered of Zyprexa 5mg IM and soft restraint placed for safety.
[2024-12-12] MEDS: ZYPREXA 5 MG IM (21:59)
[2024-12-12] MEDS: STERILE WATER FOR INJECTION 2.1 ML IM (21:59)
[2024-12-12] MEDS: LOTRIMIN 1% CREAM TOPICAL (23:08)
[2024-12-12] MEDS: CARDURA PO (23:10)
[2024-12-12] MEDS: DEPAKOTE ER (24 HR RELEASE) PO (23:10)
[2024-12-12] MEDS: KEFLEX PO (23:10)
[2024-12-12] MEDS: SEROQUEL PO (23:10)
[2024-12-12] MEDS: MELATONIN PO (23:10)
[2024-12-12 23:25] VITALS: BP 116/81
[2024-12-13 07:44] VITALS: BP 168/96
[2024-12-13] MEDS: SENOKOT-S PO ×2 (08:08→23:17)
[2024-12-13] MEDS: MIRALAX PO (08:09)
[2024-12-13] MEDS: VITAMIN D3 (cholecalciferol) 125 MCG PO (08:10)
[2024-12-13] MEDS: DEPAKOTE (12 HR RELEASE) 500 MG PO (08:10)
[2024-12-13] MEDS: KEFLEX 500 MG PO ×4 (08:10→23:16)
[2024-12-13] MEDS: NORVASC 2.5 MG PO (08:11)
[2024-12-13] MEDS: SEROQUEL 50 MG PO ×3 (08:11→23:17)
[2024-12-13] MEDS: ZOLOFT 50 MG PO (08:11)
[2024-12-13] MEDS: ZESTRIL 40 MG PO (08:12)
[2024-12-13] MEDS: LOTRIMIN 1% CREAM 1 APPLIC TOPICAL ×2 (08:14→23:17)
--- NOTE | 2024-12-13 09:05 | CM ---
Addendum entered by Lilian Charles 12/14/24 09:11:
late entry, daughter (guardian) updated.
Original Note:
Spoke with Isabela from [facility], facility unable to accept due to behaviors last PM.
No IM meds or restraints x 48 hours for reconsideration.
MD updated.
Plan: skilled rehab once medically cleared, bed available and auth obtained.
--- NOTE | 2024-12-13 11:07 | W.PN.UPDATE ---
Update Note
Progress Note Update
Patient seen at bedside with RN, chart reviewed, discussed with staff. Patient had episode of agitation overnight requiring restraints and IM Zyprexa. He is reportedly pleasant during the day, currently awake and wanting to get out of bed. He
remains in restraints at this time.
Impression/Recommendations: Dementia, possibly Lewy body; ? underlying depression; history of TBI - Would change Depakote to all SR rather than ER which would allow for an increase in the bioavailability of the drug. Could recheck levels in a few
days before considering a dose adjustment. Again, Depakote was initially prescribed by patient's OP neurologist. Continue with Zoloft and Seroquel for now. Continue with efforts to redirect when able. Will follow.
[2024-12-13] MEDS: SEROQUEL 25 MG PO (12:05)
--- NOTE | 2024-12-13 13:26 | PTCARENOTE ---
Received patient on 4 point restraints. Pt. calm and cooperative this AM, trialed off leg restraints at 10 AM. At around 11 AM Pt. found climbing OOB with feet on floor. Pt. oriented back to room and back in bed. Pt. then at 1130 AM found climbing
out of bed and not responding to verbal commands. Placed back in 4 points. MD notified. Pt. still agitated calling nurses bad words and using physial aggression on staff. Seroquel given. Will continue with plan of care and if pt. is more cooperative
will try to take off restraints.
--- NOTE | 2024-12-13 13:32 | W.PN.HOSP.TC ---
Today's Communication/Plan
-
Transition to SR Depakote formulation
Continue Seroquel and Zoloft
Chemical and physical restraints as needed
Psych recommendations appreciate
Assessment / Plan
Assessment / Plan
#Acute Agitation/Delirium
#Senile Dementia with behavioral Disturbance
#Traumatic Brain Injury (March 2024)
-Patient with intermittent episode of severe agitation and confusions.
-CBC normal. CMP BMP normal. Afebrile. Doubt metabolic cause.
-CT head without acute changes; likely progressive dementia, potential Lewy body component
-Monitor for behavioral disturbances. Continue to reorient. Delirium precautions
-Seroquel increased to 50 mg 3 times daily with 25 mg as needed
-SSRI was transition from Lexapro to Zoloft 50 mg daily
-Depakote increased to 500 mg a.m., 1000 mg p.m. due to low levels on arrival
-Donepezil was discontinued
-Psychiatry transition Depakote to SR formulations on 12/13 to improve bioavailability
-Continue to monitor mental status, restraints as needed
#Abdomen pain
-Likely due to constipation, was started on bowel regimen
-Had bowel movement this morning
#Benign Hypertension
-Continue with Norvasc and lisinopril
History of traumatic brain injury
-secondary to fall leading to brain hemorrhage w/Large bifrontal encephalomalacia
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
#MASD groin w/superimposed cellulitis
-on keflex 500 mg 4 times daily, will continue to complete 7-day course
#BPH
-On Cardura
DVT prophylaxis: lovenox
CODE STATUS: DNR
Diet: Regular
Disposition: Pending SNF. Patient will require 48 hours without chemical or mechanical restraints prior to acceptance by facility
Anticipated Discharge: > 48 hours
Subjective/Interval History
-
Date of Service: December 13, 2024
Seen and examined at the bedside. Overnight became agitated and required Zyprexa and 4 point restraints. AFVSS this morning
Patient remains agitated at times, consistent redirection by nursing needed. Evaluated by psychiatry who transitioned Depakote to SR to improve bioavailability
ROS limited from his mental status
Objective Data
-
Vital Signs:
Vital Signs
Temp Pulse Resp BP Pulse Ox
98 F 58 16 168/96 97
12/13/24 07:44 12/13/24 08:12 12/13/24 07:44 12/13/24 08:12 12/13/24 09:23
I&O
12/12/24 12/13/24 12/14/24
06:59 06:59 06:59
Intake Total 900 / 900 760 / 760
Balance 900 / 900 760 / 760
Review of Systems
-
Unable to obtain full review of systems at this time due to: Acuity
Physical Exam
-
General: Well Developed and Well Nourished; Negative Pain
HEENT: Normocephalic, Atraumatic and Moist Mucous Membranes
Respiratory: Clear to Auscultation and Non Labored Respirations
Cardiac: Regular Rhythm and S1/S2; Negative Murmur, Rub or Gallop
GI: Soft, Nontender, Nondistended and Normal Bowel Sounds
Musculoskeletal: No Clubbing, No Cyanosis and No Edema; Negative Normal Gait & Station
Skin: Warm and Dry; Negative Rash
Neuro: Awake, Alert and Nonfocal/Grossly Intact
Psych: Agitated
[2024-12-13] MEDS: LOVENOX 40 MG SC (17:03)
[2024-12-13] MEDS: DEPAKOTE (12 HR RELEASE) 1000 MG PO (17:03)
--- NOTE | 2024-12-13 17:36 | PTCARENOTE ---
pt. with increasing agitation throughout the shift. PRN Seroquel given and pt. did not calm down. Pt. fine when no one in room, however when approached by a nurse and/or tech pt. screams to get out and curses, in addition makes attempts to use
physical violence. Pt. refused all care and vital signs by this nurse and tech. Could not attempt to change him without risk to safety. Pt. agreeable to take meds after much effort by this nurse. Will continue with plan of care.
[2024-12-13] MEDS: CARDURA 4 MG PO (23:16)
[2024-12-13] MEDS: MELATONIN 10 MG PO (23:17)
[2024-12-13 23:35] VITALS: BP 110/83
[2024-12-14 06:04] LABS: % Basophils 0.7 % (0-2); % Eosinophils 4.4 % (0-6); % Immature Granulocytes 0.3 % (0-0.5); % Lymphocytes 39.7 % (20.5-51.1); % Monocytes 10.8 % (1.7-9.3); % Neutrophils 44.1 % (42.2-75.2); Absolute Basophils 0.1 10^3/uL (0-0.2); Absolute Eosinophils 0.3 10^3/uL (0-0.7); Absolute Lymphocytes 2.7 10^3/uL (1.2-3.4); Absolute Monocytes 0.7 10^3/uL (0.1-0.6); Hematocrit 40.8 % (39.0-52.0); Hemoglobin 13.7 g/dL (13.0-18.0); Mean Corp Hgb Conc. 33.6 g/dL (33.0-37.0); Mean Corpuscular Hgb 30.7 pg (27.0-31.0); Mean Corpuscular Volume 91.5 fL (80.0-94.0); Mean Platelet Volume 10.6 fL (7.4-10.4); Nucleated Red Blood Cells % 0 % (-); Platelet Count 208 10^3/uL (130-400); Red Blood Cell Count 4.46 10^6/uL (4.70-6.10); Red Cell Dist. Width 14.3 % (11.5-14.5); White Blood Cell Count 6.9 10^3/uL (4.8-10.8)
[2024-12-14 06:53] LABS: Blood Urea Nitrogen 17 mg/dl (9-20); Calcium 10.1 mg/dl (8.4-10.2); Carbon Dioxide 30 mmol/L (22-30); Chloride 108 mmol/L (98-107); Estimated Creatinine Clearance 86 ml/min; Glucose 90 mg/dl (70-99); Potassium 4.4 mmol/L (3.5-5.1); Sodium 146 mmol/L (135-145); eGFR > 60.00
[2024-12-14 08:43] VITALS: BP 152/82
[2024-12-14] MEDS: NORVASC 2.5 MG PO (09:04)
[2024-12-14] MEDS: DEPAKOTE (12 HR RELEASE) 500 MG PO (09:04)
[2024-12-14] MEDS: SEROQUEL 50 MG PO ×4 (09:05→21:07)
[2024-12-14] MEDS: KEFLEX 500 MG PO ×4 (09:06→21:06)
[2024-12-14] MEDS: VITAMIN D3 (cholecalciferol) 125 MCG PO (09:06)
[2024-12-14] MEDS: ZOLOFT 50 MG PO (09:06)
[2024-12-14] MEDS: MIRALAX 17 GRAMS PO (09:07)
[2024-12-14] MEDS: LOTRIMIN 1% CREAM 1 APPLIC TOPICAL ×2 (09:07→21:07)
[2024-12-14] MEDS: SENOKOT-S 1 TABLET PO ×2 (09:07→21:06)
[2024-12-14] MEDS: ZESTRIL 40 MG PO (09:13)
--- NOTE | 2024-12-14 11:30 | W.PN.UPDATE ---
Update Note
Progress Note Update
patient seen chart reviewed. this patient is known to me from admit last week. spoke with nursing who report he is struggling to maintain behavior that is appropriate. had an episode of agitation which required im zyprexa and restraints. he is
currently out of restraints. he was quite pleasant when i saw him having eating every morsel of his breakfast plate and starting on his coffee. nursing does feel his agitation worsens in the afternoon as evening comes on. have increased seroquel to
50 mg qid for now. depakote was recently increased to 1500 mg daily level ordered for thursday. patient may not be able to return home unless behavior is more consistently in control will follow
--- NOTE | 2024-12-14 11:32 | PTCARENOTE ---
weaned to 5L NC with sao2 92%, will continue to monitor.
--- NOTE | 2024-12-14 12:35 | W.PN.HOSP.TC ---
Today's Communication/Plan
-
Increase Seroquel to 4 times daily per psychiatry
Continue SR Depakote formulation
Avoid chemical and mechanical restraints as possible
Frequent reorientation and delirium precautions
Assessment / Plan
Assessment / Plan
#Acute Agitation/Delirium
#Senile Dementia with behavioral Disturbance
#Traumatic Brain Injury (March 2024)
-Patient with intermittent episode of severe agitation and confusions.
-CBC normal. CMP BMP normal. Afebrile. Doubt metabolic cause.
-CT head without acute changes; likely progressive dementia, potential Lewy body component
-Monitor for behavioral disturbances. Continue to reorient. Delirium precautions
-Seroquel increased to 50 mg 3 times daily with 25 mg as needed; Increased to 50 mg QID
-SSRI was transition from Lexapro to Zoloft 50 mg daily; Donepezil was discontinued
-Depakote increased to 500 mg a.m., 1000 mg p.m. due to low levels on arrival
-Psychiatry transition Depakote to SR formulations on 12/13 to improve bioavailability
-Continue to monitor mental status, restraints as needed
-Planning to check Depakote levels on Thursday
#Abdomen pain
-Likely due to constipation, was started on bowel regimen
-Had bowel movement 12/13
#Benign Hypertension
-Continue with Norvasc and lisinopril
History of traumatic brain injury
-secondary to fall leading to brain hemorrhage w/Large bifrontal encephalomalacia
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
#MASD groin w/superimposed cellulitis
-on keflex 500 mg 4 times daily, will continue to complete 7-day course
#BPH
-On Cardura
DVT prophylaxis: lovenox
CODE STATUS: DNR
Diet: Regular
Disposition: Pending SNF. Patient will require 48 hours without chemical or mechanical restraints prior to acceptance by facility
Anticipated Discharge: Within 24 hours
Subjective/Interval History
-
Date of Service: December 14, 2024
Seen and examined at the bedside. No acute events reported overnight. AFVSS today
Mental status seems improved, patient more oriented and less agitated than previously
ROS limited by his chronic dementia
Objective Data
-
Labs:
Laboratory Results
12/14/24
05:36
WBC 6.9
Hgb 13.7
Hct 40.8
Plt Count 208
Sodium 146 H
Potassium 4.4
Chloride 108 H
Carbon Dioxide 30
BUN 17
Creatinine 0.9
Glucose 90
Calcium 10.1
Vital Signs:
Vital Signs
Temp Pulse Resp BP Pulse Ox
97.6 F 57 14 152/82 95
12/14/24 08:43 12/14/24 08:43 12/14/24 08:43 12/14/24 09:13 12/14/24 09:00
I&O
12/13/24 12/14/24 12/15/24
06:59 06:59 06:59
Intake Total 760 / 760 540 / 540
Balance 760 / 760 540 / 540
Review of Systems
-
Unable to obtain full review of systems at this time due to: Dementia
Physical Exam
-
General: Well Developed, No Apparent Distress and Obese
HEENT: Normocephalic, Atraumatic and Moist Mucous Membranes
Respiratory: Clear to Auscultation and Non Labored Respirations
Cardiac: Regular Rhythm and S1/S2; Negative Murmur, Rub or Gallop
GI: Soft, Nontender, Nondistended and Normal Bowel Sounds
Musculoskeletal: No Clubbing, No Cyanosis and No Edema
Skin: Warm and Dry; Negative Rash
Neuro: Awake, Alert, Oriented, Tremors and Nonfocal/Grossly Intact (Chronic R-eye deficit)
Psych: Calm
[2024-12-14 12:53] VITALS: BP 100/77; PULSE 64; O2SAT 97
[2024-12-14 12:54] VITALS: BP 100/77; PULSE 62; O2SAT 97
--- NOTE | 2024-12-14 13:16 | PTCARENOTE ---
patient has had restraints off since 0900 today. patient sitting oob in chair. he has been pleasant and cooperative. not able to reorient to place or time despite multiple efforts, tolerating diet, vss, will continue to monitor.
[2024-12-14 15:16] VITALS: BP 104/54
[2024-12-14] MEDS: LOVENOX SC (17:06)
[2024-12-14] MEDS: DEPAKOTE (12 HR RELEASE) 1000 MG PO (17:06)
--- NOTE | 2024-12-14 17:09 | CM ---
PT OT recommend SNF.
Pt had restraints removed. Pt will need to be free on restraints x 48 hours .
Pt will need another auth for SNF .
Will contact [facility] if still has a bed.
Dgt is guardian
PLAN To SNF after auth
--- NOTE | 2024-12-14 17:52 | PTCARENOTE ---
patient continues sitting oob in chair, MOSCOSO's, will continue to monitor.
[2024-12-14] MEDS: SEROQUEL 25 MG PO (18:00)
--- NOTE | 2024-12-14 19:13 | PTCARENOTE ---
at 1800, patient with increased confusion, agitation and anxious. standing in room naked. transferred back to [facility] and administered PRN dose of Seroquel. at present, patient more calm and cooperative, will continue to monitor.
[2024-12-14] MEDS: MELATONIN 10 MG PO (21:06)
[2024-12-14] MEDS: CARDURA 4 MG PO (21:06)
--- NOTE | 2024-12-14 21:57 | PTCARENOTE ---
PT AAOx1- confused, unable to engage in conversation. Pt restless and tremulous in the bed. Pt talking to self with confused conversation. Pt able to follow simple commands and tell this RN birthdate. Medications administered without complication.
Pt denies need to void at this time. Bed alarm in place. close monitoring maintained. Will continue to monitor.
[2024-12-14 22:00] VITALS: BP 144/69
[2024-12-14] MEDS: ZYPREXA 5 MG IM (23:19)
[2024-12-14] MEDS: STERILE WATER FOR INJECTION 2.1 ML IM (23:20)
--- NOTE | 2024-12-14 23:26 | PTCARENOTE ---
PT with increased agitation, restlessness, aggressive threatening behavior with staff, attempting to hit. Pt continuously attempting to climb out of bed setting alarm off. Pt unsafe in current state of mind. No response to oral medications and
attempts at diversional activities/ distractions. Pt placed in 4 pt soft limb restraints. Amisha ROME notified, order obtained for restraints as well as IM Zyprexa, administered as ordered. Pt continues to use vulgar language at staff. Close
monitoring maintained. Will continue to monitor.
--- NOTE | 2024-12-15 06:01 | PTCARENOTE ---
Pt sleeping. Pt inc of urine. Rosalva care provided, new brief now in place. Pt calm and cooperative with care at this time. 4 pt soft limb restraints removed. Pt repositioned per comfort. Bed alarm in place. Will continue to monitor.
[2024-12-15 07:05] VITALS: BP 143/78
[2024-12-15] MEDS: SEROQUEL 50 MG PO ×4 (08:38→21:15)
[2024-12-15] MEDS: KEFLEX 500 MG PO ×4 (08:38→21:15)
[2024-12-15] MEDS: MIRALAX 17 GRAMS PO (08:38)
[2024-12-15] MEDS: ZESTRIL 40 MG PO (08:38)
[2024-12-15] MEDS: VITAMIN D3 (cholecalciferol) 125 MCG PO (08:39)
[2024-12-15] MEDS: NORVASC 2.5 MG PO (08:39)
[2024-12-15] MEDS: ZOLOFT 50 MG PO (08:39)
[2024-12-15] MEDS: DEPAKOTE (12 HR RELEASE) 500 MG PO (08:39)
[2024-12-15] MEDS: LOTRIMIN 1% CREAM 1 APPLIC TOPICAL ×2 (08:39→20:53)
[2024-12-15] MEDS: SENOKOT-S 1 TABLET PO ×2 (08:39→20:51)
--- NOTE | 2024-12-15 11:28 | W.PN.HOSP.TC ---
Today's Communication/Plan
-
Continue current regimen
Avoid chemical and mechanical restraints as possible
Case management for SNF placement
Delirium precautions
Assessment / Plan
Assessment / Plan
#Acute Agitation/Delirium
#Senile Dementia with behavioral Disturbance
#Traumatic Brain Injury (March 2024)
-Patient with intermittent episode of severe agitation and confusions.
-CBC normal. CMP BMP normal. Afebrile. Doubt metabolic cause.
-CT head without acute changes; likely progressive dementia, potential Lewy body component
-Monitor for behavioral disturbances. Continue to reorient. Delirium precautions
-Seroquel increased to 50 mg 3 times daily with 25 mg as needed; Increased to 50 mg QID
-SSRI was transition from Lexapro to Zoloft 50 mg daily; Donepezil was discontinued
-Depakote increased to 500 mg a.m., 1000 mg p.m. due to low levels on arrival
-Psychiatry transition Depakote to SR formulations on 12/13 to improve bioavailability
-Continue to monitor mental status, restraints as needed
-Planning to check Depakote levels on Thursday
#Abdomen pain
-Likely due to constipation, was started on bowel regimen
-Had bowel movement 12/13
#Benign Hypertension
-Continue with Norvasc and lisinopril
History of traumatic brain injury
-secondary to fall leading to brain hemorrhage w/Large bifrontal encephalomalacia
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
#MASD groin w/superimposed cellulitis
-on keflex 500 mg 4 times daily, will continue to complete 7-day course
#BPH
-On Cardura
DVT prophylaxis: lovenox
CODE STATUS: DNR
Diet: Regular
Disposition: Pending SNF. Patient will require 48 hours without chemical or mechanical restraints prior to acceptance by facility. 12/16/2024 will be 48 hours from removal of most recent mechanical restraints
Anticipated Discharge: 24 - 48 hours
Subjective/Interval History
-
Date of Service: December 15, 2024
Seen and examined the bedside. No acute events overnight. AFVSS this morning
Patient appears calm, more oriented. Not currently in mechanical restraints, resting comfortably in bed
Denies any complaints other than wanting to go home. ROS limited by dementia
Objective Data
-
Vital Signs:
Vital Signs
Temp Pulse Resp BP Pulse Ox
97.9 F 67 18 143/78 95
12/15/24 07:05 12/15/24 08:39 12/15/24 07:05 12/15/24 08:39 12/15/24 07:05
I&O
12/14/24 12/15/24 12/16/24
06:59 06:59 06:59
Intake Total 540 / 540 510 / 510
Balance 540 / 540 510 / 510
Review of Systems
-
Unable to obtain full review of systems at this time due to: Dementia
Physical Exam
-
General: Well Developed, Well Nourished, No Apparent Distress and Comfortable
HEENT: Normocephalic, Atraumatic, Moist Mucous Membranes and Anicteric
Respiratory: Clear to Auscultation and Non Labored Respirations
Cardiac: Regular Rhythm and S1/S2; Negative Murmur, Rub or Gallop
GI: Soft, Nontender, Nondistended and Normal Bowel Sounds
Musculoskeletal: No Clubbing, No Cyanosis and No Edema
Skin: Warm and Dry; Negative Rash
Neuro: Awake, Alert, Oriented, Tremors, Nonfocal/Grossly Intact and Other (Chronic right eye deficit)
Psych: Calm
Data Reviewed
-
Labs: Labs Reviewed by me and Discussed with Patient
--- NOTE | 2024-12-15 11:57 | W.PN.UPDATE ---
Update Note
Progress Note Update
patient seen chart reviewed. mr hardy is very pleasant at this moment. he does remain very confused. told me he is scheduled for 'fourteen surgeries'. he did seem to know he was in a hospital. he was agitated yesterday into this am and did
require a prn but nursing tells me on dayshift today there have been no problems. since we just inc seroquel yesterday to qid will give it another day or so. depakote level is tomorrow. will follow
--- NOTE | 2024-12-15 13:29 | CM ---
PT OT recommend SNF.
Pt had restraints replaced on night time nanny but removed at 6 am. Pt will need to be free on restraints x 48 hours .
Pt will need another auth for SNF.
Updated care port referral made
LM with [facility] if still has a bed.
Dgt is guardian
PLAN To SNF after auth
--- NOTE | 2024-12-15 14:03 | PTCARENOTE ---
Pt setting off bed alarm, trying to get out of bed. Confused, only oriented to himself. Was pleasant this AM but no longer pleasant, cursing at nurses. Pt tried hitting and kicking RN and will not stay in bed, placed back in four point soft limb
restraints.
[2024-12-15] MEDS: DEPAKOTE (12 HR RELEASE) 1000 MG PO (17:01)
[2024-12-15] MEDS: LOVENOX SC (17:01)
[2024-12-15] MEDS: MELATONIN 10 MG PO (21:14)
[2024-12-15] MEDS: CARDURA 4 MG PO (21:15)
[2024-12-15 23:21] VITALS: BP 169/71
[2024-12-16 05:56] LABS: % Basophils 1.1 % (0-2); % Eosinophils 3.8 % (0-6); % Immature Granulocytes 0.5 % (0-0.5); % Lymphocytes 41.3 % (20.5-51.1); % Monocytes 10.3 % (1.7-9.3); Absolute Basophils 0.1 10^3/uL (0-0.2); Absolute Eosinophils 0.3 10^3/uL (0-0.7); Absolute Lymphocytes 2.7 10^3/uL (1.2-3.4); Absolute Monocytes 0.7 10^3/uL (0.1-0.6); Absolute Neutrophils 2.8 10^3/uL (1.4-6.5); Hematocrit 38.7 % (39.0-52.0); Hemoglobin 13.5 g/dL (13.0-18.0); Mean Corp Hgb Conc. 34.9 g/dL (33.0-37.0); Mean Corpuscular Hgb 31.5 pg (27.0-31.0); Mean Corpuscular Volume 90.4 fL (80.0-94.0); Mean Platelet Volume 10.7 fL (7.4-10.4); Nucleated Red Blood Cells % 0 % (-); Platelet Count 213 10^3/uL (130-400); Red Blood Cell Count 4.28 10^6/uL (4.70-6.10); White Blood Cell Count 6.6 10^3/uL (4.8-10.8)
[2024-12-16 06:25] LABS: Blood Urea Nitrogen 18 mg/dl (9-20); Calcium 9.9 mg/dl (8.4-10.2); Carbon Dioxide 28 mmol/L (22-30); Chloride 108 mmol/L (98-107); Estimated Creatinine Clearance 96 ml/min; Glucose 81 mg/dl (70-99); Potassium 4.2 mmol/L (3.5-5.1); Sodium 145 mmol/L (135-145); eGFR > 60.00
[2024-12-16 06:32] LABS: Depakane 58.4 ug/ml (50.0-120.0)
[2024-12-16 07:05] VITALS: BP 163/85
[2024-12-16] MEDS: MIRALAX 17 GRAMS PO (08:12)
[2024-12-16] MEDS: SEROQUEL 50 MG PO ×3 (08:13→20:28)
[2024-12-16] MEDS: NORVASC 2.5 MG PO (08:13)
[2024-12-16] MEDS: SENOKOT-S 1 TABLET PO ×2 (08:14→20:29)
[2024-12-16] MEDS: DEPAKOTE (12 HR RELEASE) 500 MG PO (08:14)
[2024-12-16] MEDS: VITAMIN D3 (cholecalciferol) 125 MCG PO (08:14)
[2024-12-16] MEDS: ZESTRIL 40 MG PO (08:14)
[2024-12-16] MEDS: ZOLOFT 50 MG PO (08:14)
[2024-12-16] MEDS: LOTRIMIN 1% CREAM 1 APPLIC TOPICAL ×2 (08:18→20:27)
[2024-12-16] MEDS: KEFLEX PO (09:04)
--- NOTE | 2024-12-16 11:50 | W.PN.HOSP.TC ---
Today's Communication/Plan
-
Consider increasing afternoon Seroquel
Attempt to avoid mechanical restraints and chemical restraints as possible
Frequent redirection and delirium precaution
Assessment / Plan
Assessment / Plan
#Acute Agitation/Delirium
#Senile Dementia with behavioral Disturbance
#Traumatic Brain Injury (March 2024)
-Patient with intermittent episode of severe agitation and confusions.
-CBC normal. CMP BMP normal. Afebrile. Doubt metabolic cause.
-CT head without acute changes; likely progressive dementia, potential Lewy body component
-Current regimen Seroquel 50 mg QID + 25 mg PRN, Zoloft, Depakote SR (500 AM, 1000 PM)
-Depakote level was initially low however repeat testing today after dose increase shows WNL
-Monitor for behavioral disturbances. Continue to reorient. Delirium precautions
-Continue to monitor mental status, restraints as needed
#Abdomen pain
-Likely due to constipation, was started on bowel regimen
-Had bowel movement 12/13
#Benign Hypertension
-Continue with Norvasc and lisinopril
History of traumatic brain injury
-secondary to fall leading to brain hemorrhage w/Large bifrontal encephalomalacia
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
#MASD groin w/superimposed cellulitis
-on keflex 500 mg 4 times daily, will continue to complete 7-day course
#BPH
-On Cardura
DVT prophylaxis: lovenox
CODE STATUS: DNR
Diet: Regular
Disposition: Pending SNF. Patient will require 48 hours without chemical or mechanical restraints prior to acceptance by facility. 12/16/2024 will be 48 hours from removal of most recent mechanical restraints. (48 hours from removal of current
restraints)
Anticipated Discharge: > 48 hours
Subjective/Interval History
-
Date of Service: December 16, 2024
Seen and examined at the bedside. Yesterday in the late afternoon became more agitated and required placement of 4-point restraints. AFVSS this morning
He remains agitated, in 4 point restraints. Per nursing he typically is calm in the mornings but near mid afternoon begins to worsen and become more agitated.
ROS limited by dementia and agitation
Objective Data
-
Labs:
Laboratory Results
12/16/24
05:23
WBC 6.6
Hgb 13.5
Hct 38.7 L
Plt Count 213
Sodium 145
Potassium 4.2
Chloride 108 H
Carbon Dioxide 28
BUN 18
Creatinine 0.8
Glucose 81
Calcium 9.9
Vital Signs:
Vital Signs
Temp Pulse Resp BP Pulse Ox
98.6 F 67 18 163/85 94
12/16/24 07:05 12/16/24 07:05 12/16/24 07:05 12/16/24 07:05 12/16/24 07:05
I&O
12/15/24 12/16/24 12/17/24
06:59 06:59 06:59
Intake Total 510 / 510 360 / 360
Balance 510 / 510 360 / 360
Review of Systems
-
Unable to obtain full review of systems at this time due to: Dementia
Physical Exam
-
General: Well Developed, Well Nourished and No Apparent Distress
HEENT: Normocephalic, Atraumatic and Moist Mucous Membranes
Respiratory: Clear to Auscultation and Non Labored Respirations
Cardiac: Regular Rhythm and S1/S2; Negative Murmur, Rub or Gallop
GI: Soft, Nontender, Nondistended and Normal Bowel Sounds
Musculoskeletal: No Clubbing, No Cyanosis and No Edema
Skin: Warm and Dry; Negative Rash
Neuro: Awake, Alert, Tremors and Other (Chronic R eye deficit); Negative Nonfocal/Grossly Intact
Psych: Confused and Agitated
Data Reviewed
-
Labs: Discussed with Physician (Psychiatry)
--- NOTE | 2024-12-16 12:31 | W.PN.UPDATE ---
Addendum entered and electronically signed by Maral Vivar MD 12/17/24 10:35:
zoloft dc'ed as it could potentially contribute to agitation.
Original Note:
Update Note
Progress Note Update
patient seen chart reviewed. spoke with nursing. daughter came in while i was talking to patient. mr hardy has had a difficult 24 hours. he continues w periods of great agitation. he continues w confusion. he believes he is waiting for surgery at
times. he told me he was going to call his father at one point. he was in restraints. tried to encourage him to just try to relax and asked nursing and his d if they could find a show for him to watch or some soft music (i could not figure out how
to do this) although his confusion is at such a level i am not sure it would make much difference. have increased seroquel to 50 mg tid and 75 mg at 4 pm. have also increased depakote to total 2000 mg daily. level was 58 and 50 to 100 is
acceptable although in psych we sometimes use upper level of 150. will recheck level on thursday. patient is thought to have some version of lewy body. i did note rigidity in his upper extremities. might be useful to have neuro see him again. . i
defer to hospitalist on this issue.
[2024-12-16 13:35] VITALS: BP 121/76
[2024-12-16 15:05] VITALS: BP 126/77
[2024-12-16] MEDS: SEROQUEL 75 MG PO (15:56)
[2024-12-16] MEDS: DEPAKOTE (12 HR RELEASE) 250 MG PO (15:56)
[2024-12-16] MEDS: LOVENOX 40 MG SC (18:04)
[2024-12-16] MEDS: DEPAKOTE (12 HR RELEASE) 1000 MG PO (18:04)
[2024-12-16] MEDS: CARDURA 4 MG PO (20:29)
[2024-12-16] MEDS: MELATONIN 10 MG PO (20:29)
[2024-12-16] MEDS: SEROQUEL 25 MG PO (21:19)
[2024-12-16 23:10] VITALS: BP 134/73
[2024-12-17] MEDS: SENOKOT-S 1 TABLET PO (07:56)
[2024-12-17] MEDS: DEPAKOTE (12 HR RELEASE) 500 MG PO (07:56)
[2024-12-17] MEDS: ZESTRIL 40 MG PO (07:56)
[2024-12-17] MEDS: VITAMIN D3 (cholecalciferol) 125 MCG PO (07:56)
[2024-12-17] MEDS: SEROQUEL 50 MG PO ×3 (07:56→21:09)
[2024-12-17] MEDS: LOTRIMIN 1% CREAM 1 APPLIC TOPICAL (07:57)
[2024-12-17] MEDS: MIRALAX 17 GRAMS PO (07:57)
[2024-12-17] MEDS: NORVASC 2.5 MG PO (07:57)
[2024-12-17 08:00] VITALS: BP 156/73
--- NOTE | 2024-12-17 11:33 | W.PN.HOSP.TC ---
Today's Communication/Plan
-
Continue current regimen
Avoid chemical and mechanical restraints as possible
Assessment / Plan
Assessment / Plan
#Acute Agitation/Delirium
#Dementia with behavioral Disturbance
#Suspected Lewy body dementia
#Traumatic Brain Injury (March 2024)
-Patient with intermittent episode of severe agitation and confusions.
-CBC normal. CMP BMP normal. Afebrile. Doubt metabolic cause.
-CT head without acute changes; likely progressive dementia, potential Lewy body component
-Current regimen Seroquel 50 mg QID + 75 mg @1600, Zoloft, Depakote SR (500 AM, 1000 PM)
-Depakote level was initially low however repeat testing today after dose increase shows WNL
-Monitor for behavioral disturbances. Continue to reorient. Delirium precautions
-Continue to monitor mental status, restraints as needed
#Abdomen pain
-Likely due to constipation, was started on bowel regimen
-Had bowel movement 12/13
#Benign Hypertension
-Continue with Norvasc and lisinopril
History of traumatic brain injury
-secondary to fall leading to brain hemorrhage w/Large bifrontal encephalomalacia
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
#MASD groin w/superimposed cellulitis
-on keflex 500 mg 4 times daily, will continue to complete 7-day course
#BPH
-On Cardura
DVT prophylaxis: lovenox
CODE STATUS: DNR
Diet: Regular
Disposition: Pending SNF. Patient will require 48 hours without chemical or mechanical restraints prior to acceptance by facility. 12/16/2024 will be 48 hours from removal of most recent mechanical restraints. (48 hours from removal of current
restraints, 7 PM on 12/16)
Anticipated Discharge: > 48 hours
Subjective/Interval History
-
Date of Service: December 17, 2024
Seen and examined at the bedside. No acute events reported overnight. AFVSS
Per nursing patient had a good night, no agitation, remained off of restraints since near 7 PM yesterday
ROS limited by his dementia
Objective Data
-
Vital Signs:
Vital Signs
Temp Pulse Resp BP Pulse Ox
97.7 F 58 18 156/73 94
12/17/24 08:00 12/17/24 08:00 12/17/24 08:00 12/17/24 08:00 12/17/24 08:00
I&O
12/16/24 12/17/24 12/18/24
06:59 06:59 06:59
Intake Total 360 / 360 840 / 840
Balance 360 / 360 840 / 840
Review of Systems
-
History Source: Patient
All other systems: Reviewed and negative
Physical Exam
-
General: Well Developed, No Apparent Distress and Comfortable
HEENT: Normocephalic, Atraumatic and Moist Mucous Membranes
Respiratory: Clear to Auscultation and Non Labored Respirations
Cardiac: Regular Rhythm and S1/S2; Negative Murmur
GI: Soft, Nontender, Nondistended and Normal Bowel Sounds
Musculoskeletal: No Clubbing, No Cyanosis and No Edema
Skin: Warm and Dry; Negative Rash
Neuro: Awake, Alert, Nonfocal/Grossly Intact and Other (Chronic R eye deficit)
Psych: Calm
--- NOTE | 2024-12-17 12:15 | W.PN.UPDATE ---
Update Note
Progress Note Update
patient seen chart reviewed. spoke with nursing. mr hardy is having a good day. he did have a prn yesterday. nursing noted he was constantly swinging his legs oob and feared he'd end up in restraints so he had a prn of seroquel in addition to
scheduled meds. he is very pleasant this am. i asked him if he would like to watch some basketball as the [employer] championship on. he indicated yes. apparently he likes sports and can carry on somewhat of a conversation on this issue. he
did remind me that he was to 'go home' soon. would continue w meds as they are for now (psych meds) depakote level thursday am
[2024-12-17 16:00] VITALS: BP 147/80
[2024-12-17] MEDS: DEPAKOTE (12 HR RELEASE) 250 MG PO (16:21)
[2024-12-17] MEDS: SEROQUEL 75 MG PO (16:21)
[2024-12-17] MEDS: DEPAKOTE (12 HR RELEASE) 1000 MG PO (17:37)
[2024-12-17] MEDS: LOVENOX 40 MG SC (17:37)
[2024-12-17] MEDS: LOTRIMIN 1% CREAM TOPICAL (21:08)
[2024-12-17] MEDS: CARDURA 4 MG PO (21:09)
[2024-12-17] MEDS: SENOKOT-S PO (21:09)
[2024-12-17] MEDS: MELATONIN 10 MG PO ×2 (21:10→21:14)
[2024-12-17] MEDS: SEROQUEL 25 MG PO (21:11)
[2024-12-17 23:47] VITALS: BP 151/80
[2024-12-18] MEDS: SEROQUEL 25 MG PO (03:14)
[2024-12-18 07:00] VITALS: BP 169/87
[2024-12-18] MEDS: LOTRIMIN 1% CREAM 1 APPLIC TOPICAL ×2 (08:06→22:02)
[2024-12-18] MEDS: SEROQUEL 50 MG PO ×3 (08:06→22:01)
[2024-12-18] MEDS: NORVASC 2.5 MG PO (08:06)
[2024-12-18] MEDS: ZESTRIL 40 MG PO (08:06)
[2024-12-18] MEDS: DEPAKOTE (12 HR RELEASE) 500 MG PO (08:06)
[2024-12-18] MEDS: VITAMIN D3 (cholecalciferol) 125 MCG PO (08:06)
[2024-12-18] MEDS: MIRALAX 17 GRAMS PO (08:06)
[2024-12-18] MEDS: SENOKOT-S 1 TABLET PO (08:06)
--- NOTE | 2024-12-18 11:04 | W.PN.HOSP.TC ---
Today's Communication/Plan
-
Continue current psych regimen
Escalate bowel regimen, give suppository
Avoid chemical and mechanical restraints (can use PRN Seroquel)
Possible discharge to SNF tomorrow
Assessment / Plan
Assessment / Plan
#Acute Agitation/Delirium
#Dementia with behavioral Disturbance
#Suspected Lewy body dementia
#Traumatic Brain Injury (March 2024)
-Patient with intermittent episode of severe agitation and confusions.
-CBC normal. CMP BMP normal. Afebrile. Doubt metabolic cause.
-CT head without acute changes; likely progressive dementia, potential Lewy body component
-Current regimen Seroquel 50 mg QID + 75 mg @1600, Zoloft, Depakote SR (500 AM, 1000 PM)
-Depakote level was initially low however repeat testing today after dose increase shows WNL
-Monitor for behavioral disturbances. Continue to reorient. Delirium precautions
-Continue to monitor mental status, restraints as needed
#Constipation
-No bowel movement documented since 12/13; patient refuses enemas
-Ordered bisacodyl suppository for now and started senna twice daily
-Continue with daily MiraLAX for now
#Benign Hypertension
-Continue with Norvasc and lisinopril
History of traumatic brain injury
-secondary to fall leading to brain hemorrhage w/Large bifrontal encephalomalacia
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
#MASD groin w/superimposed cellulitis
-on keflex 500 mg 4 times daily, will continue to complete 7-day course
#BPH
-On Cardura
DVT prophylaxis: lovenox
CODE STATUS: DNR
Diet: Regular
Disposition: Pending SNF. Patient will require 48 hours without chemical or mechanical restraints prior to acceptance by facility. 12/16/2024 will be 48 hours from removal of most recent mechanical restraints. (48 hours from removal of current
restraints, 7 PM on 4/4). Possible discharge to SNF on 12/19
Anticipated Discharge: Within 24 hours
Subjective/Interval History
-
Date of Service: December 18, 2024
Seen and examined at the bedside today. No acute events reported overnight. Patient was calm and slept well. AFVSS this morning
Notified by nursing that patient has not had bowel movement in 5 days per documentation. Suppository and bowel regimen escalated.
Patient denies any acute complaints.
Objective Data
-
Vital Signs:
Vital Signs
Temp Pulse Resp BP Pulse Ox
98.3 F 63 18 169/87 94
12/18/24 07:00 12/18/24 07:00 12/18/24 07:00 12/18/24 07:00 12/18/24 07:00
I&O
12/17/24 12/18/24 12/19/24
06:59 06:59 06:59
Intake Total 840 / 840 1200 / 1200
Balance 840 / 840 1200 / 1200
Review of Systems
-
History Source: Patient
All other systems: Reviewed and negative
Physical Exam
-
General: Well Developed, No Apparent Distress and Comfortable
HEENT: Normocephalic, Atraumatic and Moist Mucous Membranes
Respiratory: Clear to Auscultation, Non Labored Respirations and Accessory Resp Muscle Use
Cardiac: Regular Rhythm and S1/S2; Negative Murmur, Rub or Gallop
GI: Soft, Nontender, Nondistended and Normal Bowel Sounds
Musculoskeletal: No Clubbing, No Cyanosis and No Edema
Skin: Warm and Dry; Negative Rash
Neuro: Awake, Alert, Nonfocal/Grossly Intact and Other (Chronic (R) eye deficit); Negative Oriented
Psych: Calm
[2024-12-18] MEDS: DULCOLAX 10 MG RECTAL (11:39)
--- NOTE | 2024-12-18 13:34 | W.PN.UPDATE ---
Update Note
Progress Note Update
chart reviewed/ pt seen
Pt lying on bed mumbling to himself, not coherent. He does say that he is tired of soiling himself, and when I went in his sheets were soiled and about to be changed. Unable to have any other discussion with me.No further recommendations.
Acc to nursing staff, he will be discharged after 48 hours out of restraints- which would be tomorrow- if allgoes well.
Pt on Seroquel and tolerating it. No further recommendations.
--- NOTE | 2024-12-18 13:44 | CM ---
Addendum entered by Kayla Gutiérrez 12/18/24 13:48:
CM requested updated therapy notes from PT / OT.
Original Note:
CM following re: d/c planning.
D/c plan is for SNF placement at [facility].
Pt remains off restraints.
ADC tomorrow. CM messaged QC to inform of potential d/c 12/19.
Awaiting confirmation of bed and once obtained, will obtain auth.
[2024-12-18 15:00] VITALS: BP 168/82
[2024-12-18] MEDS: SEROQUEL 75 MG PO (16:00)
[2024-12-18] MEDS: DEPAKOTE (12 HR RELEASE) 250 MG PO (16:00)
[2024-12-18] MEDS: LOVENOX 40 MG SC (17:22)
[2024-12-18] MEDS: DEPAKOTE (12 HR RELEASE) 1000 MG PO (17:23)
[2024-12-18] MEDS: SENOKOT-S PO (21:57)
[2024-12-18] MEDS: CARDURA 4 MG PO (21:57)
[2024-12-18 22:00] VITALS: BP 164/92
[2024-12-19 07:05] VITALS: BP 173/89
[2024-12-19] MEDS: ZESTRIL 40 MG PO (07:58)
[2024-12-19] MEDS: SENOKOT-S 1 TABLET PO (07:58)
[2024-12-19] MEDS: SEROQUEL 50 MG PO ×3 (07:59→21:30)
[2024-12-19] MEDS: VITAMIN D3 (cholecalciferol) 125 MCG PO (07:59)
[2024-12-19] MEDS: DEPAKOTE (12 HR RELEASE) 500 MG PO (07:59)
[2024-12-19] MEDS: NORVASC 2.5 MG PO (07:59)
[2024-12-19] MEDS: LOTRIMIN 1% CREAM 1 APPLIC TOPICAL ×2 (08:01→21:27)
[2024-12-19] MEDS: MIRALAX 17 GRAMS PO (08:01)
[2024-12-19 08:13] LABS: Depakane 98.7 ug/ml (50.0-120.0)
--- NOTE | 2024-12-19 08:44 | W.PN.HOSP.TC ---
Today's Communication/Plan
-
Discharge today
Assessment / Plan
Assessment / Plan
Physical Exam
General: Well Developed, No Apparent Distress and Comfortable
HEENT: Normocephalic, Atraumatic and Moist Mucous Membranes
Respiratory: Clear to Auscultation Bilaterally
Cardiac: Regular Rhythm and S1/S2
GI: Soft, Nontender, Nondistended and Normal Bowel Sounds
Musculoskeletal: No Cyanosis and No Edema
Skin: Warm and Dry
Neuro: Awake, Alert, Nonfocal/Grossly Intact and Other (Chronic (R) eye deficit); Negative Oriented
Psych: Poor insight
Assessment/Plan
#Acute Agitation/Delirium
#Dementia with behavioral Disturbance
#Suspected Lewy body dementia
#Traumatic Brain Injury (March 2024)
-Patient with intermittent episode of severe agitation and confusions.
-CBC unremarkable. CMP BMP unremarkable. Afebrile. Doubt metabolic cause.
-CT head without acute changes; likely progressive dementia, potential Lewy body component
-Current regimen Seroquel 50 mg TID + 75 mg @1600, Depakote with different doses at different times of the day
-Depakote level was initially low however repeat testing after dose increase shows WNL -- recheck Depakote levels outpatient
-Monitor for behavioral disturbances. Continue to reorient. Delirium precautions
-Continue to monitor mental status, restraints as needed
#Constipation
-No bowel movement documented since 12/13; patient refuses enemas
-Continue with bowel regimen as ordered -- monitor closely for and treat constipation outpatient
#Benign Hypertension
-Continue with Norvasc and lisinopril
-Low sodium diet
#History of traumatic brain injury
-secondary to fall leading to brain hemorrhage w/Large bifrontal encephalomalacia
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
#MASD groin w/superimposed cellulitis
-Received antibiotics this admission
#BPH
-On Cardura
DVT prophylaxis: lovenox
CODE STATUS: DNR
Diet: Regular
More than 30 minutes spent in discharge including
Final examination of the patient
Summarizing hospital stay
Instructions for continuing care to all relevant caregivers
Preparation of discharge records, prescriptions, and referral forms
Total time spent (in minutes): 38
Anticipated Discharge: Today
Subjective/Interval History
-
Date of Service: December 19, 2024
Patient was seen and examined. No new events or complaints, has been able to be off restraints (did not need restraints).
Objective Data
-
Vital Signs:
Vital Signs
Temp Pulse Resp BP Pulse Ox
98.2 F 71 19 173/89 94
12/19/24 07:05 12/19/24 07:05 12/19/24 07:05 12/19/24 07:05 12/19/24 07:05
I&O
12/18/24 12/19/24 12/20/24
06:59 06:59 06:59
Intake Total 1200 / 1200 720 / 720
Balance 1200 / 1200 720 / 720
--- NOTE | 2024-12-19 13:33 | CM ---
Addendum entered by Brooke Umana RN 12/19/24 16:43:
Several calls made [facility] called to say they are refusing to take patient because pt needs memory care with SNF. RN field secretary notified to cancel ambulance and discharge.
Will send to facilities with memory care and SNF
Original Note:
LM with Isabela at [facility].
Spoke with dgharry Jorge [phone] she agreed with they want pt to go to [facility] for rehab.
IMM explained and she agree with dc IMM email to [email or web address] as requested.
Spoke with January [phone] ext [phone] [place] she provided NPI and said bed available .
Called [phone] transferred spoke with Chandrika Haskins skilled rehab by [facility] Auth # [id number]
Start date 12/19/24, LCD/NRD 12/23/24 NRI call # [phone].
NOTE auth number the same as original auth .
Medical nec form on chart .Ambulance auth with Acute care- #[id number]
[facility]
report# [phone] ext [phone]
fax [phone]
Plan: [facility] via ambulance
[2024-12-19 15:10] VITALS: BP 165/84
[2024-12-19] MEDS: DEPAKOTE (12 HR RELEASE) 250 MG PO (16:02)
[2024-12-19] MEDS: SEROQUEL 75 MG PO (16:02)
--- NOTE | 2024-12-19 16:52 | W.PN.UPDATE ---
Update Note
Progress Note Update
I received an update from patient's case aide saying 'Pt was cancelled by SNF They say he needs a memory care with SNF Will have to do planning again tomorrow'
Therefore, discharge order cancelled.
[2024-12-19] MEDS: LOVENOX 40 MG SC (17:13)
[2024-12-19] MEDS: DEPAKOTE (12 HR RELEASE) 1000 MG PO (17:13)
[2024-12-19] MEDS: SENOKOT-S PO (20:50)
[2024-12-19] MEDS: MELATONIN 10 MG PO (21:28)
[2024-12-19] MEDS: CARDURA 4 MG PO (21:30)
[2024-12-20 06:23] LABS: Depakane 87.4 ug/ml (50.0-120.0)
[2024-12-20 08:02] VITALS: BP 108/61
[2024-12-20] MEDS: MIRALAX PO (08:51)
[2024-12-20] MEDS: LOTRIMIN 1% CREAM 1 APPLIC TOPICAL ×2 (08:51→20:43)
[2024-12-20] MEDS: SEROQUEL 50 MG PO ×3 (09:12→20:43)
[2024-12-20] MEDS: MIRALAX 17 GRAMS PO (09:13)
[2024-12-20] MEDS: VITAMIN D3 (cholecalciferol) 125 MCG PO (09:13)
[2024-12-20] MEDS: ZESTRIL 40 MG PO (09:13)
[2024-12-20] MEDS: DEPAKOTE (12 HR RELEASE) 500 MG PO (09:13)
[2024-12-20] MEDS: SENOKOT-S 1 TABLET PO ×2 (09:13→20:43)
[2024-12-20] MEDS: NORVASC 2.5 MG PO (09:13)
[2024-12-20 11:02] VITALS: BMI 32.1
--- NOTE | 2024-12-20 11:53 | CM ---
Continues to look for placement with memory care and SNF in [place] [facility].
\\Referral placed.
LM with [facility] [phone] .
Spoke with Madalyn [phone] she said they do not have a bed in memory care.
Pt remains confused.
Will need [employer] auth
PLAN To Locate memory care with rehab facility
--- NOTE | 2024-12-20 13:20 | W.PN.HOSP.TC ---
Today's Communication/Plan
-
Case management working on memory care placement with rehab facility
Assessment / Plan
Assessment / Plan
Physical Exam
General: Well Developed, No Apparent Distress and Comfortable
HEENT: Normocephalic, Atraumatic and Moist Mucous Membranes
Respiratory: Clear to Auscultation Bilaterally
Cardiac: Regular Rhythm and S1/S2
GI: Soft, Nontender, Nondistended and Normal Bowel Sounds
Musculoskeletal: No Cyanosis and No Edema
Skin: Warm and Dry
Neuro: Awake, Alert, Nonfocal/Grossly Intact and Other (Chronic (R) eye deficit); Negative Oriented
Psych: Poor insight
Assessment/Plan
#Acute Agitation/Delirium
#Dementia with behavioral Disturbance
#Suspected Lewy body dementia
#Traumatic Brain Injury (March 2024)
-Patient with intermittent episode of severe agitation and confusions.
-CBC unremarkable. CMP BMP unremarkable. Afebrile. Doubt metabolic cause.
-CT head without acute changes; likely progressive dementia, potential Lewy body component
-Current regimen Seroquel 50 mg TID + 75 mg @1600, Depakote with different doses at different times of the day
-Depakote level was initially low however repeat testing after dose increase shows WNL -- recheck Depakote levels outpatient
-Monitor for behavioral disturbances. Continue to reorient. Delirium precautions
-Continue to monitor mental status, restraints as needed
#Constipation
-No bowel movement documented since 12/13; patient refuses enemas
-Continue with bowel regimen as ordered -- monitor closely for and treat constipation as appropriate
#Benign Hypertension
-Continue with Norvasc and lisinopril
-Low sodium diet
#History of traumatic brain injury
-secondary to fall leading to brain hemorrhage w/Large bifrontal encephalomalacia
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
#MASD groin w/superimposed cellulitis
-Received antibiotics this admission
#BPH
-On Cardura
DVT prophylaxis: lovenox
CODE STATUS: DNR
Diet: Regular
Anticipated Discharge: 24 - 48 hours
Subjective/Interval History
-
Date of Service: December 20, 2024
Patient was seen and examined. He denied any new symptoms or complaints.
Objective Data
-
Vital Signs:
Vital Signs
Temp Pulse Resp BP Pulse Ox
98.6 F 81 24 134/67 95
12/20/24 08:02 12/20/24 09:13 12/20/24 08:02 12/20/24 09:13 12/20/24 09:22
I&O
12/19/24 12/20/24 12/21/24
06:59 06:59 06:59
Intake Total 720 / 720 480 / 480
Balance 720 / 720 480 / 480
[2024-12-20 15:38] VITALS: BP 113/64
[2024-12-20] MEDS: DEPAKOTE (12 HR RELEASE) 250 MG PO (16:21)
[2024-12-20] MEDS: SEROQUEL 75 MG PO (16:21)
[2024-12-20] MEDS: DEPAKOTE (12 HR RELEASE) 1000 MG PO (17:58)
[2024-12-20] MEDS: LOVENOX 40 MG SC (17:59)
[2024-12-20] MEDS: CARDURA 4 MG PO (21:18)
[2024-12-20] MEDS: MELATONIN 10 MG PO (21:18)
[2024-12-20 22:00] VITALS: BP 139/78
[2024-12-21 07:25] VITALS: BP 136/67
[2024-12-21] MEDS: SENOKOT-S 1 TABLET PO ×2 (08:03→21:21)
[2024-12-21] MEDS: ZESTRIL 40 MG PO (08:05)
[2024-12-21] MEDS: NORVASC 2.5 MG PO (08:06)
[2024-12-21] MEDS: DEPAKOTE (12 HR RELEASE) 500 MG PO (08:09)
[2024-12-21] MEDS: MIRALAX 17 GRAMS PO (08:09)
[2024-12-21] MEDS: SEROQUEL 50 MG PO ×3 (08:09→21:20)
[2024-12-21] MEDS: VITAMIN D3 (cholecalciferol) 125 MCG PO (08:09)
[2024-12-21] MEDS: LOTRIMIN 1% CREAM 1 APPLIC TOPICAL ×2 (08:10→21:21)
--- NOTE | 2024-12-21 08:21 | W.PN.HOSP.TC ---
Today's Communication/Plan
-
Placement to memory care still pending -- I discussed this with case management today
Assessment / Plan
Assessment / Plan
Physical Exam
General: Well Developed, No Apparent Distress and Comfortable
HEENT: Normocephalic, Atraumatic and Moist Mucous Membranes
Respiratory: Clear to Auscultation Bilaterally
Cardiac: Regular Rhythm and S1/S2
GI: Soft, Nontender, Nondistended and Normal Bowel Sounds
Musculoskeletal: No Cyanosis and No Edema
Skin: Warm and Dry
Neuro: Awake, Alert, Nonfocal/Grossly Intact and Other (Chronic (R) eye deficit); Negative Oriented
Psych: Poor insight
Assessment/Plan
#Acute Agitation/Delirium
#Dementia with behavioral Disturbance
#Suspected Lewy body dementia
#Traumatic Brain Injury (March 2024)
-Patient with intermittent episode of severe agitation and confusions.
-CBC unremarkable. CMP BMP unremarkable. Afebrile. Doubt metabolic cause.
-CT head without acute changes; likely progressive dementia, potential Lewy body component
-Current regimen Seroquel 50 mg TID + 75 mg @1600, Depakote with different doses at different times of the day
-Depakote level was initially low however repeat testing after dose increase shows WNL -- recheck Depakote levels outpatient
-Monitor for behavioral disturbances. Continue to reorient. Delirium precautions
-Continue to monitor mental status, restraints as needed
#Constipation
-No bowel movement documented since 12/13; patient refuses enemas
-Continue with bowel regimen as ordered -- monitor closely for and treat constipation as appropriate
#Benign Hypertension
-Continue with Norvasc and lisinopril
-Low sodium diet
#History of traumatic brain injury
-secondary to fall leading to brain hemorrhage w/Large bifrontal encephalomalacia
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
#MASD groin w/superimposed cellulitis
-Received antibiotics this admission
#BPH
-On Cardura
DVT prophylaxis: lovenox
CODE STATUS: DNR
Diet: Regular
Anticipated Discharge: 24 - 48 hours
Subjective/Interval History
-
Date of Service: December 21, 2024
Patient was seen and examined. No new symptoms or complaints. He has remained calm per patient's nurse.
Objective Data
-
Vital Signs:
Vital Signs
Temp Pulse Resp BP Pulse Ox
98.8 F 72 18 128/73 94
12/20/24 22:00 12/21/24 08:05 12/20/24 22:00 12/21/24 08:05 12/20/24 22:00
I&O
12/20/24 12/21/24 12/22/24
06:59 06:59 06:59
Intake Total 480 / 480 720 / 720
Balance 480 / 480 720 / 720
[2024-12-21 14:08] VITALS: BP 139/72; BP 139/79
[2024-12-21 15:25] VITALS: BP 136/76
--- NOTE | 2024-12-21 15:40 | W.PN.UPDATE ---
Update Note
Progress Note Update
patient seen chart reviewed. spoke with nursing and cm. the patient is doing much better in many ways....he is walking w assist and is generally not agitated. he remains however very confused he told me that he was going to surgery shortly and i
should not come by for dessert tomorrow morning. he was quite pleasant. cm is having a very difficult time finding a facility that offers memory care and PT and is going back to the drawing board revisiting some of the facilities she has referred
him to. with the increase in depakote level is close to 100. will repeat on thursday to make sure not overshooting. while in psych we can use up to levels of 150 this is an elderly rather frail gentleman. did not make any changes in his medications
will follow
[2024-12-21] MEDS: SEROQUEL 75 MG PO (15:47)
[2024-12-21] MEDS: DEPAKOTE (12 HR RELEASE) 250 MG PO (15:47)
--- NOTE | 2024-12-21 16:53 | CM ---
Continues to look for placement with memory care and SNF.
Discussed with dgt Ania [phone] that area needs to be broaden for placement.
Additional referrals for [facility] SNF per RN behaviors are improved.
[facility] [phone] said no beds.
[facility] [phone] have no beds in memory care.
Will need [employer] auth
PLAN To Locate memory care with rehab facility
[2024-12-21] MEDS: DEPAKOTE (12 HR RELEASE) 1000 MG PO (17:46)
[2024-12-21] MEDS: LOVENOX 40 MG SC (17:48)
[2024-12-21] MEDS: SEROQUEL 25 MG PO (19:02)
[2024-12-21] MEDS: MELATONIN 10 MG PO (21:20)
[2024-12-21] MEDS: CARDURA 4 MG PO (21:20)
[2024-12-21 22:08] VITALS: BP 148/80
--- NOTE | 2024-12-22 01:05 | PTCARENOTE ---
At change of shift, patient becoming combative and aggressive towards staff. Patient yelling expletives at nursing staff and trying to get OOB. Unable to redirect patient. Patient broke ceramic dish on dinner tray. Day shift RN administered PRN
seroquel. Patient continued with aggressive behaviors and trying to hit staff. LATRICIA Miguel notified. New order rec'd for b/l soft limb wrist restraints and 4 side rails. Restraints placed on patient. Patient continued with aggressive language
and behaviors and throwing legs OOB. Scheduled medications administered-see MAR for administration. Plan of care ongoing.
--- NOTE | 2024-12-22 06:29 | PTCARENOTE ---
Patient continues to be agitated and use aggressive language towards staff. This RN attempted to administer PRN seroquel with no success. Patient became more agitated and unwilling to take medication. Patient remains in b/l wrist restraints. Plan of
care ongoing.
--- NOTE | 2024-12-22 07:37 | W.PN.HOSP.TC ---
Today's Communication/Plan
-
Patient became agitated again needing restraints
I called patient's daughter Ania and spoke to her today
Placement pending
Assessment / Plan
Assessment / Plan
Physical Exam
General: Well Developed, No Apparent Distress and Comfortable
HEENT: Normocephalic, Atraumatic and Moist Mucous Membranes
Respiratory: Clear to Auscultation Bilaterally
Cardiac: Regular Rhythm and S1/S2
GI: Soft, Nontender, Nondistended and Normal Bowel Sounds
Musculoskeletal: No Cyanosis and No Edema
Skin: Warm and Dry
Neuro: Awake, Alert, Nonfocal/Grossly Intact and Other (Chronic (R) eye deficit); Negative Oriented
Psych: Poor insight. Agitated at times.
Assessment/Plan
#Acute Agitation/Delirium
#Dementia with behavioral Disturbance
#Suspected Lewy body dementia
#Traumatic Brain Injury (March 2024)
-Patient with intermittent episode of severe agitation and confusions.
-CBC unremarkable. CMP BMP unremarkable. Afebrile. Doubt metabolic cause.
-CT head without acute changes; likely progressive dementia, potential Lewy body component
-Current regimen Seroquel 50 mg TID + 75 mg @1600, Depakote with different doses at different times of the day
-Depakote level was initially low however repeat testing after dose increase shows WNL -- recheck Depakote levels per psychiatry
-Monitor for behavioral disturbances. Continue to reorient. Delirium precautions
-Continue to monitor mental status, restraints as needed
-EKG QTc acceptable
#Constipation
-Last bowel movement was 12/18/24
-Continue with bowel regimen as ordered -- monitor closely for and treat constipation as appropriate
#Benign Hypertension
-Continue with Norvasc and lisinopril
-Low sodium diet
#History of traumatic brain injury
-secondary to fall leading to brain hemorrhage w/Large bifrontal encephalomalacia
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
#MASD groin w/superimposed cellulitis
-Received antibiotics this admission
#BPH
-On Cardura
DVT prophylaxis: Lovenox
CODE STATUS: DNR
Diet: Regular
I spoke to patient's daughter and guardian Ania today, and answered all her questions and concerns to satisfaction.
Anticipated Discharge: > 48 hours
Subjective/Interval History
-
Date of Service: December 22, 2024
Patient was seen and examined. Per patient's nurse, patient had a moderate amount of soft loose brown stool on December 18, 2024. Patient became agitated overnight, needing restraints.
Objective Data
-
Vital Signs:
Vital Signs
Temp Pulse Resp BP Pulse Ox
98.7 F 81 18 148/80 94
12/21/24 22:08 12/21/24 22:08 12/21/24 22:08 12/21/24 22:08 12/21/24 22:08
I&O
12/21/24 12/22/24 12/23/24
06:59 06:59 06:59
Intake Total 720 / 720 480 / 480
Balance 720 / 720 480 / 480
[2024-12-22] MEDS: DEPAKOTE (12 HR RELEASE) 500 MG PO (08:15)
[2024-12-22] MEDS: VITAMIN D3 (cholecalciferol) 125 MCG PO (08:16)
[2024-12-22] MEDS: MIRALAX PO ×2 (08:16→08:22)
[2024-12-22] MEDS: ZESTRIL 40 MG PO (08:16)
[2024-12-22] MEDS: NORVASC 2.5 MG PO (08:16)
[2024-12-22] MEDS: SEROQUEL 50 MG PO ×3 (08:16→20:33)
[2024-12-22] MEDS: SENOKOT-S 1 TABLET PO ×2 (08:16→20:33)
[2024-12-22] MEDS: LOTRIMIN 1% CREAM 1 APPLIC TOPICAL ×2 (08:16→21:56)
--- NOTE | 2024-12-22 14:15 | PTCARENOTE ---
Pt. in 4 point restraints this am for protective intervention. Psych at bedside to evaluate pt. and helped to assist in taking off restraints and attempting to ambulate pt. with walker. Pt. had difficult time going from laying to sitting in bed. Pt
able to ambulate from bed to doorway and back with a X1 assist and rolling walker, but is unsteady. Pt. now sitting in jaycob-chair at nurses station without need for restraints, acting appropriately, but still confused. Will reassess need for
restraints when pt. returns to his room.
--- NOTE | 2024-12-22 14:42 | W.PN.UPDATE ---
Update Note
Progress Note Update
patient seen chart reviewed. discussed w nursing staff and cm. patient has been in and out of restraints requiring prns in the past day . nursing has noted that it typically occurs after visits. was in tears today worrying she had
caused this. prior to the visit yesterday patient had notably been doing very much better. patient was in restraints initially when i saw him although he greeted me very jovially. i asked his nurse to help me take him out of restraints which we did
and he was able to walk to the door and back and then sit in a chair. we wound up putting him in the nursing station in a chair and he was perfectly content. mr hardy is very very confused. he can engage only in the most basic ways and everything
he says is out of the blue and not very relevant. it is not at all clear what upsets him and he cannot tell us. i do think he wants to be up and about but admittedly without a person or better two persons with him he is a fall risk. i suggested a
psych unit.....not clear if they would see his mobility as an issue but it might be worth exploring. did not change meds. valproate level pending tomorrow. will follow
--- NOTE | 2024-12-22 15:08 | PTCARENOTE ---
Pt. starting to get agitated at nurses station, beginning to yell out profanities. This RN with assistance brought pt. back to bed. Pt. immediately requiring 4 point restraints again as a protective intervention. Pt. making comments to staff
threatening harm and attempting to kick staff. Pt. now resting in bed with soft wrist 4 point restraints and 4 side rails. Will continue to assess need for restraints.
[2024-12-22 16:01] VITALS: BP 147/82
[2024-12-22] MEDS: DEPAKOTE (12 HR RELEASE) 1000 MG PO (17:22)
[2024-12-22] MEDS: LOVENOX 40 MG SC (17:23)
[2024-12-22] MEDS: SEROQUEL 75 MG PO (17:25)
[2024-12-22] MEDS: DEPAKOTE (12 HR RELEASE) 250 MG PO (17:26)
--- NOTE | 2024-12-22 17:41 | CM ---
Pt returned to needing restraints and will need to be off restraints for SNF placement.
Additional referral placed.
Will need auth .
PLAN To SNF at discharge.
--- NOTE | 2024-12-22 18:34 | PTCARENOTE ---
Pt. continuing to have aggressive behaviors and yelling threats at staff. Pt. with continued needs for 4 point restraints for staff and patient safety as a protective intervention. Pt. brief and bed sheets changed, assisted with eating dinner, and
made comfortable in bed. Pt. daughter at bedside tearful but says 'I am used to seeing him behave like this', emotional support provided. Will update profile grinder technician RN.
[2024-12-22] MEDS: CARDURA 4 MG PO (22:00)
[2024-12-22] MEDS: MELATONIN 10 MG PO (22:00)
[2024-12-22 23:00] VITALS: BP 132/76
[2024-12-23 06:20] LABS: Depakane 87.9 ug/ml (50.0-120.0)
--- NOTE | 2024-12-23 07:50 | W.PN.HOSP.TC ---
Today's Communication/Plan
-
Placement still pending
Off restraints
See plan
Assessment / Plan
Assessment / Plan
Physical Exam
General: Well Developed, No Apparent Distress and Comfortable
HEENT: Normocephalic, Atraumatic and Moist Mucous Membranes
Respiratory: Clear to Auscultation Bilaterally
Cardiac: Regular Rhythm and S1/S2
GI: Soft, Nontender, Nondistended and Normal Bowel Sounds
Musculoskeletal: No Cyanosis and No Edema
Skin: Warm and Dry
Neuro: Awake, Alert, Nonfocal/Grossly Intact and Other (Chronic (R) eye deficit); Negative Oriented
Psych: Poor insight. Agitated at times.
Assessment/Plan
#Acute Agitation/Delirium
#Dementia with behavioral Disturbance
#Suspected Lewy body dementia
#Traumatic Brain Injury (March 2024)
-Patient with intermittent episode of severe agitation and confusions.
-CBC unremarkable. CMP BMP unremarkable. Afebrile. Doubt metabolic cause.
-CT head without acute changes; likely progressive dementia, potential Lewy body component
-Current regimen Seroquel 50 mg TID + 75 mg @1600, Depakote with different doses at different times of the day
-Depakote level was initially low however repeat testing after dose increase shows WNL -- recheck Depakote levels per psychiatry
-Monitor for behavioral disturbances. Continue to reorient. Delirium precautions
-Continue to monitor mental status, restraints as needed
-EKG QTc acceptable
#Chest Pain and Shortness of Breath Reported by patient on 12/23/24
#History of Angina
-However patient was confused and did not report to be in distress, vital signs HR 92; BP 102/62; RR 16; 99% on room air
-Check EKG and troponins
-Less likely to be PE, no swelling in the legs, Wells Score for PE is very low, and patient has also consistently been getting Lovenox DVT prophylaxis
-Patient's daughter Ania over the phone said patient has no history of myocardial infarction or heart surgery or stents, but in the past chest pain was attributed to stress
-Patient does see cardiology at [place] with the next appointment later in December 2024, as per patient's daughter
#Constipation
-Last bowel movement was 12/18/24
-Continue with bowel regimen as ordered -- monitor closely for and treat constipation as appropriate
#Benign Hypertension
-Continue with Norvasc and lisinopril
-Low sodium diet
#Hyperlipidemia
#History of traumatic brain injury
-secondary to fall leading to brain hemorrhage w/Large bifrontal encephalomalacia
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
#MASD groin w/superimposed cellulitis
-Received antibiotics this admission
#BPH
-On Cardura
DVT prophylaxis: Lovenox
CODE STATUS: DNR
Diet: Regular
I spoke to patient's daughters Mara and patient's guardian Ania today, and answered all her questions and concerns to their satisfaction.
Anticipated Discharge: > 48 hours
Subjective/Interval History
-
Date of Service: December 23, 2024
Patient was seen and examined. This morning he reported chest pain and shortness of breath, he did not look like he was in distress and remained confused, vital signs: 92 102/62, 16, 99% on room air.
Objective Data
-
Vital Signs:
Vital Signs
Temp Pulse Resp BP Pulse Ox
97.9 F 66 14 132/76 95
12/22/24 23:00 12/22/24 23:00 12/22/24 23:00 12/22/24 23:00 12/22/24 23:00
I&O
12/22/24 12/23/24 12/24/24
06:59 06:59 06:59
Intake Total 480 / 480 840 / 840
Balance 480 / 480 840 / 840
[2024-12-23] MEDS: SEROQUEL 50 MG PO ×3 (09:23→20:44)
[2024-12-23] MEDS: NORVASC 2.5 MG PO (09:23)
[2024-12-23] MEDS: DEPAKOTE (12 HR RELEASE) 500 MG PO (09:24)
[2024-12-23] MEDS: MIRALAX 17 GRAMS PO (09:24)
[2024-12-23] MEDS: ZESTRIL 40 MG PO (09:24)
[2024-12-23] MEDS: VITAMIN D3 (cholecalciferol) 125 MCG PO (09:24)
[2024-12-23] MEDS: LOTRIMIN 1% CREAM 1 APPLIC TOPICAL ×2 (09:24→22:56)
[2024-12-23] MEDS: SENOKOT-S 1 TABLET PO ×2 (09:25→20:44)
--- NOTE | 2024-12-23 09:41 | PTCARENOTE ---
pt's restraint order , pt is awake and alert, conversation is confused but pleasant. cooperating with PT. restraints to remain off as pt is cooperative. attending aware. chair and bed alarm in place, hourly rounds.
[2024-12-23 09:59] VITALS: BP 160/83
[2024-12-23 10:44] VITALS: BP 102/62
--- NOTE | 2024-12-23 10:44 | PTCARENOTE ---
pt complained to CM of CP and being unable to breathe, This nurse reported to bedside, pt appeared to be in no distress and stated there was 'blood in his breathing' pt had eaten 100% breakfast worked with PT and was sitting up in chair. 99%RA,
normal respiration effort and rate. attending notified
[2024-12-23 11:29] LABS: Hematocrit 42.4 % (39.0-52.0); Hemoglobin 14.5 g/dL (13.0-18.0); Mean Corp Hgb Conc. 34.2 g/dL (33.0-37.0); Mean Corpuscular Hgb 30.9 pg (27.0-31.0); Mean Corpuscular Volume 90.2 fL (80.0-94.0); Mean Platelet Volume 10.8 fL (7.4-10.4); Platelet Count 233 10^3/uL (130-400); Red Cell Dist. Width 13.6 % (11.5-14.5); White Blood Cell Count 7.3 10^3/uL (4.8-10.8)
[2024-12-23 11:52] LABS: Troponin I < 0.012 ng/ml
[2024-12-23 11:55] LABS: Blood Urea Nitrogen 23 mg/dl (9-20); Calcium 9.6 mg/dl (8.4-10.2); Carbon Dioxide 24 mmol/L (22-30); Chloride 104 mmol/L (98-107); Estimated Creatinine Clearance 96 ml/min; Glucose 111 mg/dl (70-99); Magnesium 2.2 mg/dl (1.6-2.3); Potassium 3.9 mmol/L (3.5-5.1); Sodium 144 mmol/L (135-145); eGFR > 60.00
--- NOTE | 2024-12-23 12:40 | W.PN.UPDATE ---
Addendum entered and electronically signed by Maral Vivar MD 12/23/24 12:50:
daughter worries that in pt psych mr antony would have the same issue in terms of his not being able to walk around. the family is very concerned about disposition and preparing to sell his house eventually to pay for his care and their mom , mr "Tre"antony's , would live w one of them
Original Note:
Update Note
Progress Note Update
patient seen chart reviewed. spoke with nursing and with dr lopez. the patient is in good spirits today he has been pleasant and cooperative. although he was in restraints earlier yesterday see my note he did not get prn either yesterday or
today. this morning he was pleasant and cooperative. he continues to be confused which likely will not change but was smiling and interactive. when i left suddenly the bed alarm went off. he had taken his tray table and turned it into a walker and
was (actually rather successfully ) navigating himself out of the room. it was explained to him again that he was at risk of falling if he did not have assist. he went back to sitting in his chair cooperatively. did not make any change in meds.
efforts to find disposition for him continue. called daughter to discuss the past several days, will recheck depakote level. his meds, disposition etc. will continue to follow
--- NOTE | 2024-12-23 12:45 | CM ---
Patient seen bedside. off restraints.
Ambulated with physical therapy, sitting in chair.
patient reported to this CM he was having chest pain, nursing updated.
Plan: skilled to LTC once off restraints x 48 hours.
[2024-12-23] MEDS: TYLENOL 650 MG PO (13:09)
[2024-12-23 15:01] VITALS: BP 121/63
[2024-12-23 15:06] VITALS: BP 120/60
[2024-12-23] MEDS: DEPAKOTE (12 HR RELEASE) 250 MG PO (15:26)
[2024-12-23] MEDS: SEROQUEL 75 MG PO (15:26)
[2024-12-23] MEDS: LOVENOX 40 MG SC (17:37)
[2024-12-23] MEDS: DEPAKOTE (12 HR RELEASE) 1000 MG PO (17:37)
[2024-12-23 17:49] LABS: Troponin I < 0.012 ng/ml
[2024-12-23] MEDS: MELATONIN 10 MG PO (22:12)
[2024-12-23] MEDS: CARDURA 4 MG PO (22:12)
[2024-12-24 06:54] LABS: Troponin I < 0.012 ng/ml
[2024-12-24 06:57] LABS: Depakane 85.2 ug/ml (50.0-120.0)
[2024-12-24 07:00] VITALS: BP 165/86
[2024-12-24] MEDS: NORVASC 2.5 MG PO (08:54)
[2024-12-24] MEDS: SENOKOT-S 1 TABLET PO ×2 (08:55→21:49)
[2024-12-24] MEDS: DEPAKOTE (12 HR RELEASE) 500 MG PO (08:55)
[2024-12-24] MEDS: SEROQUEL 50 MG PO ×3 (08:55→21:49)
[2024-12-24] MEDS: MIRALAX 17 GRAMS PO (08:55)
[2024-12-24] MEDS: VITAMIN D3 (cholecalciferol) 125 MCG PO (08:55)
[2024-12-24] MEDS: ZESTRIL 40 MG PO (08:56)
[2024-12-24] MEDS: LOTRIMIN 1% CREAM 1 APPLIC TOPICAL ×2 (09:40→21:54)
[2024-12-24 12:53] LABS: Troponin I < 0.012 ng/ml
[2024-12-24 15:00] VITALS: BP 160/79
[2024-12-24] MEDS: SEROQUEL 75 MG PO (16:01)
[2024-12-24] MEDS: DEPAKOTE (12 HR RELEASE) 250 MG PO (16:01)
--- NOTE | 2024-12-24 16:33 | W.PN.UPDATE ---
Update Note
Progress Note Update
Pt seen at bedside, chart reviewed. Sleeping in bed quietly, did not arouse excessively as pt poor historian at baseline with underlying dementia, would create risk of agitation with no notable/significant benefit at this time. Remains out of
restraints, disposition pending his remaining out of restraints for 48+ hrs.
VPA level stable at 85.2
Continue psychotropics with no changes at this time.
--- NOTE | 2024-12-24 17:32 | W.PN.HOSP.TC ---
Today's Communication/Plan
-
Remains off restraints
Hopefully can discharge tomorrow (needs to be off restraints for 48 hours -- and they were taken off on 10 AM on December 23, 2024)
Assessment / Plan
Assessment / Plan
Physical Exam
General: Well Developed, No Apparent Distress and Comfortable
HEENT: Normocephalic, Atraumatic and Moist Mucous Membranes
Respiratory: Clear to Auscultation Bilaterally
Cardiac: Regular Rhythm and S1/S2
GI: Soft, Nontender, Nondistended and Normal Bowel Sounds
Musculoskeletal: No Cyanosis and No Edema
Skin: Warm and Dry
Neuro: Awake, Alert, Nonfocal/Grossly Intact and Other (Chronic (R) eye deficit); Negative Oriented
Psych: Poor insight. Agitated at times.
Assessment/Plan
#Acute Agitation/Delirium
#Dementia with behavioral Disturbance
#Suspected Lewy body dementia
#Traumatic Brain Injury (March 2024)
-Patient with intermittent episode of severe agitation and confusions.
-CBC unremarkable. CMP BMP unremarkable. Afebrile. Doubt metabolic cause.
-CT head without acute changes; likely progressive dementia, potential Lewy body component
-Current regimen Seroquel 50 mg TID + 75 mg @1600, Depakote with different doses at different times of the day
-Depakote level was initially low however repeat testing after dose increase shows WNL -- recheck Depakote levels per psychiatry
-Monitor for behavioral disturbances. Continue to reorient. Delirium precautions
-Continue to monitor mental status, restraints as needed
-EKG QTc acceptable
-Patient has been off restraints since 10 AM on December 23, 2024
#Chest Pain and Shortness of Breath Reported by patient on 12/23/24
#History of Angina
-However patient was confused and did not report to be in distress, vital signs HR 92; BP 102/62; RR 16; 99% on room air
-EKG not concerning for ACS and troponins have been negative
-Less likely to be PE, no swelling in the legs, Wells Score for PE is very low, and patient has also consistently been getting Lovenox DVT prophylaxis
-Patient's daughter Ania over the phone said patient has no history of myocardial infarction or heart surgery or stents, but that in the past, chest pain was attributed to stress
-Patient does see cardiology at [facility] with the next appointment later in December 2024, as per patient's daughter
#Constipation
-Last bowel movement - normal - was on 12/24/24 morning
-Continue with bowel regimen as ordered -- monitor closely for and treat constipation as appropriate
#Benign Hypertension
-Continue with Norvasc and lisinopril
-Low sodium diet
#Hyperlipidemia
#History of traumatic brain injury
-secondary to fall leading to brain hemorrhage w/Large bifrontal encephalomalacia
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
#MASD groin w/superimposed cellulitis
-Received antibiotics this admission
#BPH
-On Cardura
DVT prophylaxis: Lovenox
CODE STATUS: DNR
Diet: Regular
Anticipated Discharge: 24 - 48 hours
Subjective/Interval History
-
Date of Service: December 24, 2024
Patient was seen and examined. He has been off restraints since 10 AM on December 23, 2024. Last bowel movement, normal, was this morning.
Objective Data
-
Vital Signs:
Vital Signs
Temp Pulse Resp BP Pulse Ox
98.7 F 73 16 160/79 92
12/24/24 15:00 12/24/24 15:00 12/24/24 15:00 12/24/24 15:00 12/24/24 15:00
I&O
12/23/24 12/24/24 12/25/24
06:59 06:59 06:59
Intake Total 840 / 840 960 / 960
Balance 840 / 840 960 / 960
[2024-12-24] MEDS: LOVENOX 40 MG SC (17:55)
[2024-12-24] MEDS: DEPAKOTE (12 HR RELEASE) 1000 MG PO (17:55)
[2024-12-24] MEDS: MELATONIN 10 MG PO (21:50)
[2024-12-24] MEDS: CARDURA 4 MG PO (21:50)
[2024-12-24 23:43] VITALS: BP 179/91
[2024-12-25 07:00] VITALS: BP 172/84
--- NOTE | 2024-12-25 08:14 | W.PN.HOSP.TC ---
Today's Communication/Plan
-
Amlodipine increased for better blood pressure control
Remains off restraints
Discussed case with counter caser today, and she said she needs to secure a bed and obtain auth still
Assessment / Plan
Assessment / Plan
Physical Exam
General: Well Developed, No Apparent Distress and Comfortable
HEENT: Normocephalic, Atraumatic and Moist Mucous Membranes
Respiratory: Clear to Auscultation Bilaterally
Cardiac: Regular Rhythm and S1/S2
GI: Soft, Nontender, Nondistended and Normal Bowel Sounds
Musculoskeletal: No Cyanosis and No Edema
Skin: Warm and Dry
Neuro: Awake, Alert, Nonfocal/Grossly Intact and Other (Chronic (R) eye deficit); Negative Oriented
Psych: Poor insight. Agitated at times.
Assessment/Plan
#Acute Agitation/Delirium
#Dementia with behavioral Disturbance
#Suspected Lewy body dementia
#Traumatic Brain Injury (March 2024)
-Patient with intermittent episode of severe agitation and confusions.
-CBC unremarkable. CMP BMP unremarkable. Afebrile. Doubt metabolic cause.
-CT head without acute changes; likely progressive dementia, potential Lewy body component
-Current regimen Seroquel 50 mg TID + 75 mg @1600, Depakote with different doses at different times of the day
-Depakote level was initially low however repeat testing after dose increase shows WNL -- recheck Depakote levels per psychiatry
-Monitor for behavioral disturbances. Continue to reorient. Delirium precautions
-Continue to monitor mental status, restraints as needed
-EKG QTc acceptable
-Patient has been off restraints since 10 AM on December 23, 2024
#Chest Pain and Shortness of Breath Reported by patient on 12/23/24
#History of Angina
-However patient was confused and did not report to be in distress, vital signs HR 92; BP 102/62; RR 16; 99% on room air
-EKG not concerning for ACS and troponins have been negative
-Less likely to be PE, no swelling in the legs, Wells Score for PE is very low, and patient has also consistently been getting Lovenox DVT prophylaxis
-Patient's daughter Ania over the phone said patient has no history of myocardial infarction or heart surgery or stents, but that in the past, chest pain was attributed to stress
-Patient does see cardiology at [place] with the next appointment later in December 2024, as per patient's daughter
#Constipation
-Last bowel movement - normal - was on 12/24/24 morning
-Continue with bowel regimen as ordered -- monitor closely for and treat constipation as appropriate
#Benign Hypertension
-Continue with lisinopril
-Increased on 12/25/24 patient's Norvas to provide for better blood pressure control
-Low sodium diet
#Hyperlipidemia
#History of traumatic brain injury
-secondary to fall leading to brain hemorrhage w/Large bifrontal encephalomalacia
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
#MASD groin w/superimposed cellulitis
-Received antibiotics this admission
#BPH
-On Cardura
DVT prophylaxis: Lovenox
CODE STATUS: DNR
Diet: Regular
Anticipated Discharge: 24 - 48 hours
Subjective/Interval History
-
Date of Service: December 25, 2024
Patient was seen and examined. No new symptoms or complaints.
Objective Data
-
Vital Signs:
Vital Signs
Temp Pulse Resp BP Pulse Ox
98.0 F 63 18 179/91 95
12/24/24 23:43 12/24/24 23:43 12/24/24 23:43 12/24/24 23:43 12/24/24 23:43
I&O
12/24/24 12/25/24 12/26/24
06:59 06:59 06:59
Intake Total 960 / 960 240 / 240
Balance 960 / 960 240 / 240
[2024-12-25] MEDS: ZESTRIL 40 MG PO (09:41)
[2024-12-25] MEDS: MIRALAX 17 GRAMS PO (09:41)
[2024-12-25] MEDS: SEROQUEL 50 MG PO ×2 (09:42→11:46)
[2024-12-25] MEDS: NORVASC 2.5 MG PO ×2 (09:42→11:48)
[2024-12-25] MEDS: SENOKOT-S 1 TABLET PO (09:43)
[2024-12-25] MEDS: VITAMIN D3 (cholecalciferol) 125 MCG PO (09:49)
[2024-12-25] MEDS: DEPAKOTE (12 HR RELEASE) 500 MG PO (09:49)
[2024-12-25] MEDS: LOTRIMIN 1% CREAM 1 APPLIC TOPICAL ×2 (09:50→20:35)
--- NOTE | 2024-12-25 13:38 | CM ---
spoke with daughter regarding referrals
off restraints 48h
would like facility around [facility]
no bed secured as of yet, sent responses in [facility]
Will need to obtain auth once bed secured
per daughter will need correction placement after skilled rehab
PLAN: SNF, pending acceptance/bed availability - will need auth
[2024-12-25 15:00] VITALS: BP 171/86
[2024-12-25] MEDS: SEROQUEL 75 MG PO (17:03)
[2024-12-25] MEDS: LOVENOX 40 MG SC (17:04)
[2024-12-25] MEDS: DEPAKOTE (12 HR RELEASE) 1000 MG PO (17:04)
[2024-12-25] MEDS: DEPAKOTE (12 HR RELEASE) 250 MG PO (17:08)
[2024-12-25] MEDS: APRESOLINE 5 MG IV (17:30)
--- NOTE | 2024-12-25 18:21 | PTCARENOTE ---
Patient checked frequently throughout shift, continues on bed alarm. Restraints have been off since 10am 12/23/24. Helped patient with feeding, repositioned to promote comfort, call torre within reach.
[2024-12-25] MEDS: MELATONIN PO (20:24)
[2024-12-25] MEDS: SENOKOT-S PO (20:24)
[2024-12-25] MEDS: SEROQUEL PO (20:25)
[2024-12-25] MEDS: CARDURA PO (20:25)
[2024-12-25 23:21] VITALS: BP 148/87
[2024-12-26] MEDS: SEROQUEL PO (02:46)
[2024-12-26] MEDS: SENOKOT-S PO (02:46)
[2024-12-26] MEDS: CARDURA PO (02:46)
[2024-12-26] MEDS: MELATONIN PO (02:46)
--- NOTE | 2024-12-26 06:22 | PTCARENOTE ---
Patient remains disoriented/confused. Patient on bed alarm, changed due to incontinence. Patient remains out of restraints. Will continue to monitor. Safety maintained.
[2024-12-26 07:34] VITALS: BP 169/70
[2024-12-26] MEDS: MIRALAX 17 GRAMS PO (08:40)
[2024-12-26] MEDS: SEROQUEL 50 MG PO ×3 (08:40→21:42)
[2024-12-26] MEDS: VITAMIN D3 (cholecalciferol) 125 MCG PO (08:41)
[2024-12-26] MEDS: SENOKOT-S 1 TABLET PO ×2 (08:41→21:42)
[2024-12-26] MEDS: DEPAKOTE (12 HR RELEASE) 500 MG PO (08:41)
[2024-12-26] MEDS: NORVASC 5 MG PO (08:41)
[2024-12-26] MEDS: LOTRIMIN 1% CREAM 1 APPLIC TOPICAL ×2 (08:52→21:43)
[2024-12-26] MEDS: ZESTRIL 40 MG PO (09:04)
[2024-12-26 10:52] VITALS: BP 140/86; PULSE 80; O2SAT 97
[2024-12-26 10:53] LABS: Urine Albumin 2+ (Neg - Trace); Urine Bilirubin Negative (Negative); Urine Character Clear (Clear); Urine Color Yellow; Urine Glucose Negative (Negative); Urine Ketone 3+ (Negative); Urine Leukocyte Negative (Negative); Urine Nitrite Negative (Negative); Urine Occult Blood Negative (Negative); Urine Urobilinogen 1+ (Neg - 1+)
[2024-12-26 11:12] LABS: Urine Mucus Many
[2024-12-26 11:14] LABS: Urine Hyaline Cast 0-2 /LPF (0-2); Urine Red Blood Cell 0-2 /HPF (0-2); Urine Squamous Cell 0-2 /LPF (Few)
[2024-12-26 11:15] LABS: Urine Bacteria Few (Negative)
[2024-12-26 11:50] VITALS: BP 140/86; PULSE 80; O2SAT 97
--- NOTE | 2024-12-26 12:58 | W.PN.HOSP.TC ---
Today's Communication/Plan
-
Placement
Check UA
Avoid chemical and mechanical restraints as possible
Assessment / Plan
Assessment / Plan
#Acute Agitation/Delirium
#Dementia with behavioral Disturbance
#Suspected Lewy body dementia
#Traumatic Brain Injury (March 2024)
-Patient with intermittent episode of severe agitation and confusions.
-CBC unremarkable. CMP BMP unremarkable. Afebrile. Doubt metabolic cause.
-CT head without acute changes; likely progressive dementia, potential Lewy body component
-Current regimen Seroquel 50 mg TID + 75 mg @1600, Depakote with different doses at different times of the day
-Depakote level was initially low however repeat testing after dose increase shows WNL -- recheck Depakote levels per psychiatry
-Monitor for behavioral disturbances. Continue to reorient. Delirium precautions
-Continue to monitor mental status, restraints as needed
-EKG QTc acceptable
-Patient has been off restraints since 10 AM on December 23, 2024
#Chest Pain and Shortness of Breath Reported by patient on 12/23/24
#History of Angina
-However patient was confused and did not report to be in distress, vital signs HR 92; BP 102/62; RR 16; 99% on room air
-EKG not concerning for ACS and troponins have been negative
-Less likely to be PE, no swelling in the legs, Wells Score for PE is very low, and patient has also consistently been getting Lovenox DVT prophylaxis
-Patient's daughter Ania over the phone said patient has no history of myocardial infarction or heart surgery or stents, but that in the past, chest pain was attributed to stress
-Patient does see cardiology at [place] with the next appointment later in December 2024, as per patient's daughter
#Constipation
-Last bowel movement - normal - was on 12/24/24 morning
-Continue with bowel regimen as ordered -- monitor closely for and treat constipation as appropriate
#Benign Hypertension
-Continue with lisinopril
-Increased on 12/25/24 patient's Norvasc to provide for better blood pressure control
-Low sodium diet
#History of traumatic brain injury
-secondary to fall leading to brain hemorrhage w/Large bifrontal encephalomalacia
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
#MASD groin w/superimposed cellulitis
-Received antibiotics this admission
#BPH
-On Cardura
#Hyperlipidemia
DVT prophylaxis: Lovenox
CODE STATUS: DNR
Diet: Regular
Anticipated Discharge: Within 24 hours
Subjective/Interval History
-
Date of Service: December 26, 2024
Seen and examined at the bedside. No acute events reported overnight. AFVSS this morning
Patient reports that his 'pee feels like acid'. Urinalysis bland
ROS limited by his dementia
Objective Data
-
Vital Signs:
Vital Signs
Temp Pulse Resp BP Pulse Ox
98.1 F 63 17 169/70 95
12/26/24 07:34 12/26/24 09:04 12/26/24 07:34 12/26/24 09:04 12/26/24 07:34
I&O
12/25/24 12/26/24 12/27/24
06:59 06:59 06:59
Intake Total 240 / 240 240 / 360 120 / 120
Balance 240 / 240 240 / 360 120 / 120
Review of Systems
-
History Source: Patient
All other systems: Reviewed and negative
Physical Exam
-
General: Well Developed, Well Nourished, No Apparent Distress and Comfortable
HEENT: Normocephalic, Atraumatic and Moist Mucous Membranes
Respiratory: Clear to Auscultation and Non Labored Respirations
Cardiac: Regular Rhythm and S1/S2; Negative Murmur, Rub or Gallop
GI: Soft, Nontender, Nondistended and Normal Bowel Sounds
Musculoskeletal: No Clubbing, No Cyanosis and No Edema
Skin: Warm and Dry; Negative Rash
Neuro: Awake, Alert, Nonfocal/Grossly Intact, Central Nerve's Intact (Chronic right eye deficit) and Other
Psych: Calm
[2024-12-26 15:41] VITALS: BP 121/64
--- NOTE | 2024-12-26 16:17 | CM ---
Referrals sent to 16 SNF facilities in search of available bed. 14 of the facilities have declined admission; 2 facilities have not yet responded.
CM will continue to follow to coordinate transfer to SNF once available bed and SNF options identified.
[2024-12-26] MEDS: DEPAKOTE (12 HR RELEASE) 250 MG PO (16:37)
[2024-12-26] MEDS: SEROQUEL 75 MG PO (16:38)
[2024-12-26] MEDS: LOVENOX 40 MG SC (18:25)
[2024-12-26] MEDS: DEPAKOTE (12 HR RELEASE) 1000 MG PO (18:26)
[2024-12-26] MEDS: MELATONIN 10 MG PO (21:41)
[2024-12-26] MEDS: CARDURA 4 MG PO (21:42)
[2024-12-26 23:00] VITALS: BP 117/65
[2024-12-27 07:23] VITALS: BP 134/72
[2024-12-27] MEDS: ZESTRIL 40 MG PO (07:52)
[2024-12-27] MEDS: DEPAKOTE (12 HR RELEASE) 500 MG PO (07:53)
[2024-12-27] MEDS: VITAMIN D3 (cholecalciferol) 125 MCG PO (07:53)
[2024-12-27] MEDS: NORVASC 5 MG PO (07:53)
[2024-12-27] MEDS: SENOKOT-S 1 TABLET PO ×2 (07:53→22:32)
[2024-12-27] MEDS: SEROQUEL 50 MG PO ×3 (07:53→22:19)
[2024-12-27] MEDS: MIRALAX 17 GRAMS PO (07:55)
[2024-12-27] MEDS: LOTRIMIN 1% CREAM 1 APPLIC TOPICAL (07:58)
--- NOTE | 2024-12-27 10:33 | W.PN.UPDATE ---
Update Note
Progress Note Update
Patient seen at bedside with present, chart reviewed, discussed with nursing and hospitalist. Mr. Burleson is awake, alert, cooperative and pleasant this AM. No reports of agitation overnight. He has been seeing spots iin his vision that started
yesterday. Hospitalist will order ct scan. No other complaints as this time. Efforts persist for placement, denials thus far. It does not appear he has needed a PRN since 12/21 and no restraints since 12/23.
Impression/Recommendations: Dementia, possibly Lewy body; ? underlying depression; history of TBI - continue current med regimen which includes depakote 500mg in AM, 250mg at 4pm and 1000mg of depakote at 6pm; Seroquel 50mg TID as well at 75mg at
4pm. Depakote level WNL at 85.2 on 12/24. Psych will follow.
--- NOTE | 2024-12-27 11:33 | W.PN.HOSP.TC ---
Today's Communication/Plan
-
CT head without contrast
Monitor for recurrence of rash
Continue current psych regimen
Placement
Assessment / Plan
Assessment / Plan
#Acute Agitation/Delirium
#Dementia with behavioral Disturbance
#Suspected Lewy body dementia
#Traumatic Brain Injury (March 2024)
-Patient with intermittent episode of severe agitation and confusions.
-CBC unremarkable. CMP BMP unremarkable. Afebrile. Doubt metabolic cause.
-CT head without acute changes; likely progressive dementia, potential Lewy body component
-Current regimen Seroquel 50 mg TID + 75 mg @1600, Depakote with different doses at different times of the day
-Depakote level was initially low however repeat testing after dose increase shows WNL
-Monitor for behavioral disturbances. Continue to reorient. Delirium precautions
-Continue to monitor mental status, restraints as needed
-EKG QTc acceptable
-Patient has been off restraints since 10 AM on December 23, 2024
#Visual field deficits
-Patient complains of dark spots in his vision, unclear if this is organic
-No other obvious new focal deficits on exam, does have chronic right eye amblyopia
-Will order CT head to rule out ICH, monitor neurochecks for now
-May consider MRI though unclear if he would tolerate with his dementia and behavioral disturbances
#Skin rash
-Suspect allergy to local irritants such as detergent; transient rash on 12/27 that lasted for less than 2 hours
-Was described as erythematous and covering his chest and areas where his blanket was covering
-Currently resolved, will monitor for recurrent
#Chest Pain and Shortness of Breath Reported by patient on 12/23/24
#History of Angina
-However patient was confused and did not report to be in distress, vital signs HR 92; BP 102/62; RR 16; 99% on room air
-EKG not concerning for ACS and troponins have been negative
-Less likely to be PE, no swelling in the legs, Wells Score for PE is very low, and patient has also consistently been getting Lovenox DVT prophylaxis
-Patient's daughter Ania over the phone said patient has no history of myocardial infarction or heart surgery or stents, but that in the past, chest pain was attributed to stress
-Patient does see cardiology at [place] with the next appointment later in December 2024, as per patient's daughter
#Constipation
-Last bowel movement - normal - was on 12/24/24 morning
-Continue with bowel regimen as ordered -- monitor closely for and treat constipation as appropriate
#Benign Hypertension
-Continue with lisinopril
-Increased on 12/25/24 patient's Norvasc to provide for better blood pressure control
-Low sodium diet
#History of traumatic brain injury
-secondary to fall leading to brain hemorrhage w/Large bifrontal encephalomalacia
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
#MASD groin w/superimposed cellulitis
-Received antibiotics this admission
#BPH
-On Cardura
#Hyperlipidemia
DVT prophylaxis: Lovenox
CODE STATUS: DNR
Diet: Regular
Anticipated Discharge: > 48 hours
Subjective/Interval History
-
Date of Service: December 27, 2024
Seen and examined at the bedside. No acute events reported. AFVSS this morning
Patient complains of some dark spots in his vision that started yesterday. Also with some nausea today. Nursing reported rash earlier this morning that resolved by time of my assessment
ROS limited by his baseline dementia
Objective Data
-
Vital Signs:
Vital Signs
Temp Pulse Resp BP Pulse Ox
97.7 F 60 15 134/72 97
12/27/24 07:23 12/27/24 07:52 12/27/24 07:23 12/27/24 07:52 12/27/24 07:23
I&O
12/26/24 12/27/24 12/28/24
06:59 06:59 06:59
Intake Total 240 / 360 480 / 480 240 / 240
Output Total 225 / 225
Balance 240 / 360 255 / 255 240 / 240
Review of Systems
-
Unable to obtain full review of systems at this time due to: Dementia
Physical Exam
-
General: Well Developed, No Apparent Distress, Comfortable and Appears Chronically Ill
HEENT: Normocephalic, Atraumatic, Moist Mucous Membranes and Anicteric
Respiratory: Clear to Auscultation and Non Labored Respirations
Cardiac: Regular Rhythm; Negative Murmur, Rub, JVD or Gallop
GI: Soft, Nontender, Nondistended and Normal Bowel Sounds
Musculoskeletal: No Clubbing, No Cyanosis and No Edema
Skin: Warm, Dry, Rash (Slight erythema to the left lower rib cage though otherwise unremarkable skin exam) and Normal Turgor
Neuro: Awake, Alert, Nonfocal/Grossly Intact and Other (Chronic right eye deficit)
Psych: Calm
Data Reviewed
-
CT Scan: Report Reviewed by me and Discussed with Family ( at bedside)
[2024-12-27] MEDS: ZOFRAN ODT (ORALLY DISINTEGRATING) 4 MG PO (12:14)
[2024-12-27 15:21] VITALS: BP 110/74
[2024-12-27] MEDS: DEPAKOTE (12 HR RELEASE) 250 MG PO (16:16)
[2024-12-27] MEDS: SEROQUEL 75 MG PO (16:17)
[2024-12-27] MEDS: DEPAKOTE (12 HR RELEASE) 1000 MG PO (18:36)
[2024-12-27] MEDS: LOVENOX 40 MG SC (18:36)
[2024-12-27] MEDS: MELATONIN 10 MG PO (22:19)
[2024-12-27] MEDS: CARDURA 4 MG PO (22:40)
[2024-12-27 23:00] VITALS: BP 159/88
[2024-12-27] MEDS: LOTRIMIN 1% CREAM TOPICAL (23:07)
[2024-12-28 06:43] LABS: % Basophils 1.1 % (0-2); % Immature Granulocytes 0.9 % (0-0.5); Absolute Basophils 0.1 10^3/uL (0-0.2); Absolute Eosinophils 0.3 10^3/uL (0-0.7); Absolute Immature Granulocytes 0.1 10^3/uL (0-0.05); Absolute Lymphocytes 3.2 10^3/uL (1.2-3.4); Absolute Monocytes 0.7 10^3/uL (0.1-0.6); Absolute Neutrophils 2.3 10^3/uL (1.4-6.5); Hematocrit 38.4 % (39.0-52.0); Hemoglobin 13.1 g/dL (13.0-18.0); Mean Corp Hgb Conc. 34.1 g/dL (33.0-37.0); Mean Corpuscular Hgb 30.9 pg (27.0-31.0); Mean Corpuscular Volume 90.6 fL (80.0-94.0); Mean Platelet Volume 10.4 fL (7.4-10.4); Nucleated Red Blood Cells % 0 % (-); Platelet Count 226 10^3/uL (130-400); Red Blood Cell Count 4.24 10^6/uL (4.70-6.10); Red Cell Dist. Width 13.2 % (11.5-14.5); White Blood Cell Count 6.6 10^3/uL (4.8-10.8)
[2024-12-28 07:05] VITALS: BP 154/78
[2024-12-28 08:01] LABS: Blood Urea Nitrogen 18 mg/dl (9-20); Calcium 9.4 mg/dl (8.4-10.2); Carbon Dioxide 27 mmol/L (22-30); Chloride 107 mmol/L (98-107); Estimated Creatinine Clearance 96 ml/min; Glucose 85 mg/dl (70-99); Potassium 4.3 mmol/L (3.5-5.1); Sodium 143 mmol/L (135-145); eGFR > 60.00
[2024-12-28] MEDS: NORVASC 5 MG PO (09:01)
[2024-12-28] MEDS: ZESTRIL 40 MG PO (09:02)
[2024-12-28] MEDS: DEPAKOTE (12 HR RELEASE) 500 MG PO (09:02)
[2024-12-28] MEDS: VITAMIN D3 (cholecalciferol) 125 MCG PO (09:02)
[2024-12-28] MEDS: MIRALAX 17 GRAMS PO (09:02)
[2024-12-28] MEDS: SEROQUEL 50 MG PO ×3 (09:02→21:44)
[2024-12-28] MEDS: SENOKOT-S 1 TABLET PO (09:02)
[2024-12-28] MEDS: LOTRIMIN 1% CREAM 1 APPLIC TOPICAL (09:02)
[2024-12-28 09:45] VITALS: BP 163/80; PULSE 70; O2SAT 96
[2024-12-28 10:17] VITALS: BP 163/80; PULSE 70; O2SAT 96
[2024-12-28 11:05] VITALS: BP 123/74
--- NOTE | 2024-12-28 11:58 | W.PN.HOSP.TC ---
Today's Communication/Plan
-
Discharge planning
Assessment / Plan
Assessment / Plan
#Acute Agitation/Delirium
#Dementia with behavioral Disturbance
#Suspected Lewy body dementia
#Traumatic Brain Injury (March 2024)
-Patient with intermittent episode of severe agitation and confusions.
-CBC unremarkable. CMP BMP unremarkable. Afebrile. Doubt metabolic cause.
-CT head without acute changes; likely progressive dementia, potential Lewy body component
-Current regimen Seroquel 50 mg TID + 75 mg @1600, Depakote with different doses at different times of the day
-Depakote level was initially low however repeat testing after dose increase shows WNL
-Monitor for behavioral disturbances. Continue to reorient. Delirium precautions
-Continue to monitor mental status, restraints as needed
-EKG QTc acceptable
-Patient has been off restraints since 10 AM on December 23, 2024
#Visual field deficits
-Patient complains of dark spots in his vision, unclear if this is organic
-No other obvious new focal deficits on exam, does have chronic right eye amblyopia
-CT head was without any acute findings or signs of ICH; as of 12/28 not can planing of visual symptoms
-May consider MRI though unclear if he would tolerate with his dementia and behavioral disturbances
#Skin rash
-Suspect allergy to local irritants such as detergent; transient rash on 12/27 that lasted for less than 2 hours
-Was described as erythematous and covering his chest and areas where his blanket was covering
-Currently resolved, will monitor for recurrent
#Chest Pain and Shortness of Breath Reported by patient on 12/23/24
#History of Angina
-However patient was confused and did not report to be in distress, vital signs HR 92; BP 102/62; RR 16; 99% on room air
-EKG not concerning for ACS and troponins have been negative
-Less likely to be PE, no swelling in the legs, Wells Score for PE is very low, and patient has also consistently been getting Lovenox DVT prophylaxis
-Patient's daughter Ania over the phone said patient has no history of myocardial infarction or heart surgery or stents, but that in the past, chest pain was attributed to stress
-Patient does see cardiology at [place] with the next appointment later in December 2024, as per patient's daughter
#Constipation
-Last bowel movement - normal - was on 12/24/24 morning
-Continue with bowel regimen as ordered -- monitor closely for and treat constipation as appropriate
#Benign Hypertension
-Continue with lisinopril
-[facility]
-Low sodium diet
#History of traumatic brain injury
-secondary to fall leading to brain hemorrhage w/Large bifrontal encephalomalacia
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
#MASD groin w/superimposed cellulitis
-Received antibiotics this admission
#BPH
-On Cardura
#Hyperlipidemia
DVT prophylaxis: Lovenox
CODE STATUS: DNR
Diet: Regular
Disposition: Medically stable for discharge when excepting facility obtained and insurance authorization approved
Anticipated Discharge: 24 - 48 hours
Subjective/Interval History
-
Date of Service: December 28, 2024
Seen and examined at the bedside. No acute events reported overnight. AFVSS
Patient worked with PT today and did quite well. No complaints of visual deficits. AO x 3
Denies any new complaints though ROS is limited from dementia and baseline mental status
Objective Data
-
Labs:
Laboratory Results
12/28/24
05:55
WBC 6.6
Hgb 13.1
Hct 38.4 L
Plt Count 226
Sodium 143
Potassium 4.3
Chloride 107
Carbon Dioxide 27
BUN 18
Creatinine 0.8
Glucose 85
Calcium 9.4
Vital Signs:
Vital Signs
Temp Pulse Resp BP Pulse Ox
97.7 F 81 16 123/74 96
12/28/24 11:05 12/28/24 11:05 12/28/24 11:05 12/28/24 11:05 12/28/24 11:05
I&O
12/27/24 12/28/24 12/29/24
06:59 06:59 06:59
Intake Total 480 / 480 420 / 420
Output Total 225 / 225
Balance 255 / 255 420 / 420
Review of Systems
-
History Source: Patient
All other systems: Reviewed and negative
Physical Exam
-
General: Well Developed, Well Nourished, No Apparent Distress and Comfortable
HEENT: Normocephalic, Atraumatic and Moist Mucous Membranes
Respiratory: Clear to Auscultation and Non Labored Respirations
Cardiac: Regular Rhythm; Negative Murmur, Rub or Gallop
GI: Soft, Nontender, Nondistended and Normal Bowel Sounds
Musculoskeletal: No Clubbing, No Cyanosis and No Edema
Skin: Warm, Dry and Normal Turgor; Negative Rash
Neuro: Awake, Alert, Oriented, Nonfocal/Grossly Intact and Other (Chronic right amblyopia)
Psych: Calm
--- NOTE | 2024-12-28 12:14 | W.PN.UPDATE ---
Update Note
Progress Note Update
patient seen chart reviewed. spoke with nursing and with cm as well as patient's who was at bedside. i had spoke to mrs hardy before. she expressed today her sadness at the reality of the situation with mr hardy...that she could not manage
him at home given the circumstances...how much help he needs, risk of falling, intermittent agitation etc. it also saddens her that sometimes he gets upset when she leaves...and gets agitated afterwards. mr hardy was very pleasant today and more
interactive. he did have cat scan given c.o seeing dots before his eyes which showed no new findings. i do wonder if this is a parkinsonian hallucination. he also sees people and talks to the according to mrs hardy although i have not seen him
actively hallucinating . . he is already on significant doses of seroquel and so far it has it seems to me helped with behavior and i am reluctant to push it up too high given sedation, difficulty w ambulation etc.he has not had a prn since prn in
over a week. he was in restraints late last week none since. efforts to place him have not come to fruition yet. depakote level 85 will follow
--- NOTE | 2024-12-28 14:37 | WOUNDNOTE ---
[facility] RN note: Patient seen during prevention rounds. Sacrum blanchable red and intact. Skin on heels intact. Patient turns self in bed. He is on a Paice Accumax mattress. Appetite reported as good. Protective sacral shaped silicone border foam
applied to sacrum. Heels off bed with air chair cushion. Instructed patient uses of air chair cushion for heels and in chair. Discussed with COMPA Estrada.
[2024-12-28 15:05] VITALS: BP 156/78
[2024-12-28] MEDS: SEROQUEL 75 MG PO (15:30)
[2024-12-28] MEDS: DEPAKOTE (12 HR RELEASE) 250 MG PO (15:30)
[2024-12-28] MEDS: DEPAKOTE (12 HR RELEASE) 1000 MG PO (17:32)
[2024-12-28] MEDS: LOVENOX 40 MG SC (17:32)
--- NOTE | 2024-12-28 17:32 | CM ---
Addendum entered by Stacey Garcia 12/28/24 17:34:
[facility] advised they have sister facilities that may be interested in admission. CM asked that they call our office so we can discuss the facilities. CM phone number provided.
Original Note:
SNF bed search continues. Requested [facility] to reconsider admission. Await response.
[2024-12-28] MEDS: LOTRIMIN 1% CREAM TOPICAL (21:43)
[2024-12-28] MEDS: SENOKOT-S PO (21:43)
[2024-12-28] MEDS: MELATONIN 10 MG PO (21:44)
[2024-12-28] MEDS: CARDURA 4 MG PO (21:44)
[2024-12-28 23:27] VITALS: BP 158/87
[2024-12-29 07:52] VITALS: BP 156/81
[2024-12-29] MEDS: MIRALAX PO (08:44)
[2024-12-29] MEDS: SENOKOT-S PO (08:45)
[2024-12-29] MEDS: NORVASC 5 MG PO (08:45)
[2024-12-29] MEDS: SEROQUEL 50 MG PO ×2 (08:45→12:06)
[2024-12-29] MEDS: ZESTRIL 40 MG PO (08:45)
[2024-12-29] MEDS: VITAMIN D3 (cholecalciferol) 125 MCG PO (08:46)
[2024-12-29] MEDS: DEPAKOTE (12 HR RELEASE) 500 MG PO (08:46)
[2024-12-29] MEDS: LOTRIMIN 1% CREAM 1 APPLIC TOPICAL (08:52)
--- NOTE | 2024-12-29 09:18 | CM ---
Addendum entered by Ciro Ayoub 12/29/24 11:30:
CM spoke to [facility] SN[facility] director veterinary Jamia and she confirmed they do have a bed available today and pt is accepted for admission today for a short term rehab and transition to a termite renewal inspector care.
[facility]
Accepting physician Allison Lisa
CM spoke to pt's daughter Ania and she expressed her agreement with pt going to [facility] for a short term rehab and transition to a LTC.
MACARIO initiated an auth for SNF level of care at [facility], spoke to [employer] case work aide Mara and based on information provided, pt is approved for SNF level of care at [facility] for 5 initial days from today till 01/02/25 with LCD and
NRD 01/02/25. Auth: [id number]. For review and additional time: [phone].
Auth information forwarded to [facility] director veterinary and she confirmed that pt is accepted for admission today.
UC to arrange ambulance with [facility]. An ambulance auth obtained for [facility]: [id number].
[facility] nursing report: [phone]
Discharge instructions fax: [phone]
D/C plan: [facility] today for a short term rehab and transition to a termite renewal inspector care.
Original Note:
MACARIO following re: discharge planning.
Reviewed pt's chart, spoke to pt's daughter Ania over the phone to update on discharge plan progress.
Pt's daughter has been informed that all SNFs that pt was referred denied the admission. Pt's daughter stated that pt's family lives in [facility] [place] [facility] and she asked to fax a referral to any SNFs within 25 miles from [place].
A referral sent to SNFs in [facility] within 25 miles. Awaiting for determination.
Discharge order noted. Awaiting for confirmation from an accepting SNFs to discuss with pt's daughter.
D/C plan: Preferred and accepted SNF for a short term rehab and a senior care care.
CM will follow to assist pt with discharge to a preferred SNF.
--- NOTE | 2024-12-29 09:58 | W.PN.HOSP.TC ---
Today's Communication/Plan
-
Continue current psychiatric regimen
Discharge to SNF when accepted
Assessment / Plan
Assessment / Plan
#Acute Agitation/Delirium
#Dementia with behavioral Disturbance
#Suspected Lewy body dementia
#Traumatic Brain Injury (March 2024)
-Patient with intermittent episode of severe agitation and confusions.
-CBC unremarkable. CMP BMP unremarkable. Afebrile. Doubt metabolic cause.
-CT head without acute changes; likely progressive dementia, potential Lewy body component
-Current regimen Seroquel 50 mg TID + 75 mg @1600, Depakote with different doses at different times of the day
-Depakote level was initially low however repeat testing after dose increase shows WNL
-Monitor for behavioral disturbances. Continue to reorient. Delirium precautions
-Continue to monitor mental status, restraints as needed
-EKG QTc acceptable
-Patient has been off restraints since 10 AM on December 23, 2024
#Visual field deficits
-Patient complains of dark spots in his vision, unclear if this is organic
-No other obvious new focal deficits on exam, does have chronic right eye amblyopia
-CT head was without any acute findings or signs of ICH; as of 12/28 not can planing of visual symptoms
-May consider MRI though unclear if he would tolerate with his dementia and behavioral disturbances
#Skin rash
-Suspect allergy to local irritants such as detergent; transient rash on 12/27 that lasted for less than 2 hours
-Was described as erythematous and covering his chest and areas where his blanket was covering
-Currently resolved, will monitor for recurrent
#Chest Pain and Shortness of Breath Reported by patient on 12/23/24
#History of Angina
-However patient was confused and did not report to be in distress, vital signs HR 92; BP 102/62; RR 16; 99% on room air
-EKG not concerning for ACS and troponins have been negative
-Less likely to be PE, no swelling in the legs, Wells Score for PE is very low, and patient has also consistently been getting Lovenox DVT prophylaxis
-Patient's daughter Ania over the phone said patient has no history of myocardial infarction or heart surgery or stents, but that in the past, chest pain was attributed to stress
-Patient does see cardiology at [place] with the next appointment later in December 2024, as per patient's daughter
#Constipation
-Last bowel movement - normal - was on 12/24/24 morning
-Continue with bowel regimen as ordered -- monitor closely for and treat constipation as appropriate
#Benign Hypertension
-Continue with lisinopril
-Increased on 12/25/24 patient's Norvasc to provide for better blood pressure control
-Low sodium diet
#History of traumatic brain injury
-secondary to fall leading to brain hemorrhage w/Large bifrontal encephalomalacia
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
#MASD groin w/superimposed cellulitis
-Received antibiotics this admission
#BPH
-On Cardura
#Hyperlipidemia
DVT prophylaxis: Lovenox
CODE STATUS: DNR
Diet: Regular
Disposition: Medically stable for discharge when excepting facility obtained and insurance authorization approved
Anticipated Discharge: 24 - 48 hours
Subjective/Interval History
-
Date of Service: December 29, 2024
Seen and examined at bedside. No acute events overnight. AFVSS this morning
Appears fairly well oriented. Denies any acute complaints
Pending placement at [facility]
Objective Data
-
Vital Signs:
Vital Signs
Temp Pulse Resp BP Pulse Ox
97.7 F 59 16 156/81 95
12/29/24 07:52 12/29/24 08:45 12/29/24 07:52 12/29/24 08:45 12/29/24 07:52
I&O
12/28/24 12/29/24 12/30/24
06:59 06:59 06:59
Intake Total 420 / 420 243 / 243
Balance 420 / 420 243 / 243
Review of Systems
-
Unable to obtain full review of systems at this time due to: Dementia
Physical Exam
-
General: Well Developed, Well Nourished, No Apparent Distress and Comfortable
HEENT: Normocephalic, Atraumatic, Moist Mucous Membranes and Anicteric
Respiratory: Clear to Auscultation and Non Labored Respirations
Cardiac: Regular Rhythm and S1/S2; Negative Murmur, Rub or Gallop
GI: Soft, Nontender, Nondistended and Normal Bowel Sounds
Musculoskeletal: No Clubbing, No Cyanosis and No Edema
Skin: Warm, Dry and Normal Turgor; Negative Rash
Neuro: Awake, Alert, Oriented, Nonfocal/Grossly Intact and Other (Chronic amblyopia of the right eye)
Psych: Calm
Data Reviewed
-
Labs: Labs Reviewed by me and Discussed with Patient
--- NOTE | 2024-12-29 12:31 | W.DCSUMMARY ---
Discharge Summary
Discharge Data
Date of Admission: 12/13/24
Date of Discharge: 12/29/24
Total time spent discharging patient (in min): 35
-
Pending Results: No
Hospital Course
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
dementia. Was evaluated by psychiatry (Dr. Donna Vivar) who helped titrate psychiatric medication regimen. Ultimately was titrated to regimen that included quetiapine 50 mg TID (0800, 1200, 2000), Seroquel 75 mg at 1600, with quetiapine 25 mg
as needed for agitation. Divalproex was transitioned to 500 mg in the morning, 1000 mg at 1800 and 250 mg at 1600. Was started on melatonin at 10 mg for sleep aid. Discontinued patient's escitalopram, donepezil, clonazepam, Percocet. On this
regimen the patient was stable and not agitated for multiple days. Had prolonged hospitalization while pursuing placement at SNF with appropriate resources. Was accepted and discharged on 12/29/2024
During hospitalization he did complain of dark spots in his vision. CT head was unremarkable and unchanged from previous studies. No other focal neurologic deficits. Psychiatry felt these were likely Parkinson's related hallucinations in the
context of his presumed underlying Lewy body dementia. Patient was able to work with physical therapy and performed well
Discharge Plan
-
Patient Disposition: [facility]/SNF
Discharge Diagnosis/Procedures: Acute agitation/delirium due to progressive dementia
Senile dementia with behavior disturbance
Questionable Lewy body dementia
History of traumatic brain injury (03/2024)
Constipation
Benign Hypertension
History of traumatic brain injury
-secondary to fall leading to brain hemorrhage w/Large bifrontal encephalomalacia
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
MASD groin with superimposed cellulitis
-Received antibiotics this admission
Benign Prostatic Hyperplasia
Condition: Fair
Diet: Low Sodium and 2 Gram Sodium
Activity: With assistance
Driving Restrictions: No driving
Bathing Restrictions: None
Blood Work: CBC, CMP, Magnesium and Depakote Level in 2 to 3 days
Others Tests: N/A
Other Services: VN
Activity Restrictions/Additional Instructions:
Follow fall precautions and follow delirium precautions
Patient should have follow-up appointment with his family doctor, should be seen within 1 to 2 weeks of discharge from the hospital.
Referral for psychiatrist provided. Contact office to schedule outpatient appointment
Patient will need a Depakote (Valproic Acid) level checked outpatient in 2 to 3 days and then case discussed with outpatient psychiatry office for any possibly needed adjustment of Depakote dosing.
Please monitor closely for and treat constipation appropriately as an outpatient.
Since patient is on Seroquel check EKG QTc (to make sure QTc is not prolonged) in 2 to 3 days.
Instructions: Dementia (including Alzheimer disease)
Referrals:
Tracie Barnhart CRNP [Specified Professional Personl] - in two to four weeks (Rigidity in upper extremities)
Tra Islas MD [Active] - in two to three weeks (Hospital Follow-Up)
Shaheen Jorgensen DO [Family Provider] - in less than 1 week
Additional Discharge Medication Instructions: Divalproex increased
Increased Seroquel from 50 mg twice daily -> 50 mg 3 times daily + 75 mg daily @1600
Start Seroquel 25 mg as needed for agitation
Stop escitalopram
Stop donepezil
Start vitamin D3 supplement
Clotrimazole is for inguinal/scrotal areas.
Prescriptions:
New
divalproex 500 mg Tablet,Delayed Release (Dr/Ec)
500 mg PO DAILY 30 Days Qty: 30 0RF
quetiapine 25 mg Tablet
25 mg PO Q6HPRN PRN (Reason: agitation) 30 Days Qty: 30 0RF
cholecalciferol (vitamin D3) 125 mcg (5,000 unit) Tablet
125 mcg PO DAILY 30 Days Qty: 30 0RF
divalproex 500 mg Tablet,Delayed Release (Dr/Ec)
1,000 mg PO DAILY@1800 Qty: 30 1RF
divalproex 250 mg Tablet,Delayed Release (Dr/Ec)
250 mg PO DAILY@1600 Qty: 30 1RF
polyethylene glycol 3350 17 gram Powder In Packet
17 g PO DAILY Qty: 30 1RF
sennosides-docusate sodium 8.6-50 mg Tablet
1 tab PO BID Qty: 60 1RF
quetiapine 25 mg Tablet
75 mg PO DAILY@1600 Qty: 90 1RF
quetiapine 25 mg Tablet
50 mg PO TID@0800,1200,2000 Qty: 180 1RF
Continued
lisinopril 40 mg tablet
40 mg PO DAILY
doxazosin 4 mg Tablet
4 mg PO HS
Fiber Gummies 5mg
15 mg PO HS
clotrimazole 1 % cream
1 applic topical BID 28 Days Qty: 45 0RF
therapeutic multivitamin Tablet
1 tab PO NOON
amlodipine 2.5 mg Tablet
2.5 mg PO DAILY
Changed
melatonin 5 mg Tablet
10 mg PO HS Qty: 0 0RF
Discontinued
clonazepam 1 mg Tablet
1 mg PO HS
donepezil 10 mg Tablet
10 mg PO HS
escitalopram oxalate 20 mg Tablet
20 mg PO DAILY
cephalexin 500 mg tablet
500 mg PO BID 10 Days Qty: 20 0RF
divalproex 250 mg tablet,delayed release (DR/EC)
500 mg PO BID
hydrocodone-acetaminophen 5-325 mg Tablet
1 tab PO BID
acetaminophen [Tylenol Extra Strength] 500 mg Tablet
1,000 mg PO NOON
quetiapine 50 mg Tablet
50 mg PO BID
Discharge Orders:
Discharge Patient (As Directed); Ordered 12/26/24
Ordered By: Seth Escudero
Discharge Date and Time
Print Language: FIJIAN
[2024-12-29 15:14] VITALS: BP 151/89
[2024-12-29] MEDS: SEROQUEL 75 MG PO (15:48)
[2024-12-29] MEDS: DEPAKOTE (12 HR RELEASE) 250 MG PO (15:48)
[2024-12-29] MEDS: SEROQUEL 25 MG PO (16:18)
== END 2024-12-29 18:01 | DRG 57 ==
LOC: 3 WEST ACU 17:09
PROVIDERS: Hospitalist; Psychiatry & Neurology Psychiatry; Student in an Organized Health Care Education/Training Program; ADMITTING PHYSICIAN Hospitalist; ATTENDING PHYSICIAN Internal Medicine; CONSULT PHYSICIAN Psychiatry & Neurology Neurology; CONSULT PHYSICIAN Psychiatry & Neurology Psychiatry; EMERGENCY PHYSICIAN Emergency Medicine; FAMILY PHYSICIAN Internal Medicine
DX: G20.A1 Parkinson's disease without dyskinesia, without mention of fluctuations (principal); F02.811 Dementia in other diseases classified elsewhere, unspecified severity, with agitation; F02.818 Dementia in other diseases classified elsewhere, unspecified severity, with other behavioral disturbance; F05 Delirium due to known physiological condition; F02.83 Dementia in other diseases classified elsewhere, unspecified severity, with mood disturbance; G93.40 Encephalopathy, unspecified; F02.82 Dementia in other diseases classified elsewhere, unspecified severity, with psychotic disturbance; G31.83 Neurocognitive disorder with Lewy bodies; G93.89 Other specified disorders of brain; K59.00 Constipation, unspecified; I10 Essential (primary) hypertension; N40.0 Benign prostatic hyperplasia without lower urinary tract symptoms; N49.2 Inflammatory disorders of scrotum; E78.5 Hyperlipidemia, unspecified; Z66 Do not resuscitate; F32.A Depression, unspecified; G47.30 Sleep apnea, unspecified; H54.61 Unqualified visual loss, right eye, normal vision left eye; I25.10 Atherosclerotic heart disease of native coronary artery without angina pectoris; Z86.73 Personal history of transient ischemic attack (TIA), and cerebral infarction without residual deficits; K21.9 Gastro-esophageal reflux disease without esophagitis; M50.90 Cervical disc disorder, unspecified, unspecified cervical region
CPT/HCPCS: 70450; 74018; 80048; 80053; 80164; 81003; 81015; 82306; 82607; 82746; 83735; 84443; 84484; 85025; 85027; 93005; 97116; 97163; 97167; 97530; 97535; 99284; J2358